=== PATIENT | male | born 1945 | race Caucasian/White ===

== ENCOUNTER 2018-05-24 12:37 | Outpatient (CLI) | payer MEDICARE, BC, SELFPAY ==
[2018-05-24 13:21] LABS: INR 1.9 (1.0-3.5); Prothrombin Time 17.8 sec (9.3-10.8)
== END 2018-05-24 12:57 ==
LOC: PRC 12:41 → LBO 12:47
PROVIDERS: Visit Provider Internal Medicine
DX: I82.409 Acute embolism and thrombosis of unspecified deep veins of unspecified lower extremity (principal); Z79.01 Long term (current) use of anticoagulants
CPT/HCPCS: 36415; 85610

== ENCOUNTER 2018-06-21 11:15 | Outpatient (CLI) | payer MEDICARE, BC, SELFPAY ==
[2018-06-21 11:46] LABS: INR 1.7 (1.0-3.5); Prothrombin Time 16.4 sec (9.3-10.8)
== END 2018-06-21 11:35 ==
PROVIDERS: Visit Provider Internal Medicine
DX: I82.409 Acute embolism and thrombosis of unspecified deep veins of unspecified lower extremity (principal); Z79.01 Long term (current) use of anticoagulants
CPT/HCPCS: 36415; 85610

== ENCOUNTER 2019-03-27 12:38 | Emergency (ER) | payer MEDICARE, BC, SELFPAY ==
[2019-03-27 12:47] VITALS: BP 148/70; PULSE 84; RESP 16; TEMP 36.8; O2SAT 95
--- NOTE | 2019-03-27 12:58 | W.ED.GENAD ---
Discharge Plan Disposition Patient Disposition: HOME Condition: Stable Discharge Details Chief Complaint: Nk/Back Pain Clinical Impression: Cervical strain Primary Care Provider: Annette,Local ED Provider: Bruno Hinojosa Home Meds and New Rx's Prescriptions: New diazepam [Valium] 5 mg tablet 5 mg PO TID-QID PRN (Reason: muscle spasm) Qty: 20 RF: 0 Continued metformin 500 mg Tablet 500 mg PO BID RF: 0 acetaminophen 325 mg Tablet 650 mg PO Q6H PRNRF: 0 atorvastatin 10 mg Tablet 10 mg PO DAILY RF: 0 chlorthalidone 25 mg Tablet 25 mg PO DAILY RF: 0 omeprazole 40 mg Capsule,Delayed Release(Dr/Ec) 40 mg PO BID RF: 0 warfarin 5 mg Tablet 5 mg PO DIRECTED RF: 0 metoprolol succinate 25 mg Tablet Extended Release 24 Hr 25 mg PO DAILY RF: 0 calcitriol 0.25 mcg Capsule 0.25 mcg PO Q OTHER DAY RF: 0 Spiriva with HandiHaler 18 mcg Capsule, W/Inhalation Device 1 cap INHALATION DAILY RF: 0 trospium 20 mg Tablet 20 mg PO BID RF: 0 cholecalciferol (vitamin D3) [Vitamin D3] 1,000 unit Tablet 1,000 unit PO DAILY RF: 0 Discharge Instructions Instructions: Cervical Strain (ED) Additional Instructions: if you develop severe worsening pain, dizziness, chest pain or feel more ill return to the emergency department I placed you on our follow up list to get set up with a primary care provider Medical Decision Making 74 yo male comes in with 5 days of left sided neck pain especially when looking up and to the left. He denies falls or other trauma. No fevers, no headaches. He has pain over the left upper trapezius without redness or warmth. He has no deficits of the cranial nerves and pain is reproducible on exam so doubt dissection and no findings to suggest carpet binder infection or other infections such as rpa, has normal oropharynx and no difficulty/pain swallowing. Given lack of trauma do not feel xrays/ct indicated. Will tx with muscle relaxer and reassess pt feeling much better and has full rom of the neck now. Given good response to muscle relaxants and reassuring exam do not feel any imaging indicated, will d/c home Differential Diagnosis neck spasm, tortcollis HPI General Mode of arrival: ambulatory. Date/Time Provider Initiated Documentation: 03/27/19 12:42. Limitations to Documentation: no limitations. Information obtained by: patient. History of Present Illness 74 year old M presents to the emergency department with the chief complaint of left sided neck pain, described as moderate, Quality is described as aching, and is localized to the neck and left. No relieving factors improve symptom(s), Movement worsens symptoms . Patient notes no other symptoms.. Related Data Home Medications Medication Instructions Recorded Confirmed Spiriva with HandiHaler 1 cap INHALATION DAILY 03/27/19 03/27/19 acetaminophen 650 mg PO Q6H PRN 03/27/19 03/27/19 atorvastatin 10 mg PO DAILY 03/27/19 03/27/19 calcitriol 0.25 mcg PO Q OTHER DAY 03/27/19 03/27/19 chlorthalidone 25 mg PO DAILY 03/27/19 03/27/19 cholecalciferol (vitamin D3) 1,000 unit PO DAILY 03/27/19 03/27/19 [Vitamin D3] diazepam [Valium] 5 mg PO TID-QID PRN #20 tab 03/27/19 metformin 500 mg PO BID 03/27/19 03/27/19 metoprolol succinate 25 mg PO DAILY 03/27/19 03/27/19 omeprazole 40 mg PO BID 03/27/19 03/27/19 trospium 20 mg PO BID 03/27/19 03/27/19 warfarin 5 mg PO DIRECTED 03/27/19 03/27/19 Previous Rx's Medication Instructions Recorded diazepam [Valium] 5 mg PO TID-QID PRN #20 tab 03/27/19 Allergies Allergy/AdvReac Type Severity Reaction Status Date / Time indomethacin [From Indocin] Allergy Unverified 03/27/19 12:51 levofloxacin Allergy Unverified 03/27/19 12:51 metronidazole [From Flagyl] Allergy Unverified 03/27/19 12:51 General Stated Complaint: Nk/Back Pain ORA: 4 Review of Systems Review of Systems All systems reviewed & are unremarkable except as noted in HPI and below Constitutional Denies chills, Denies fever(s) and Denies weakness ENT Denies change in voice Cardiovascular Denies chest pain and Denies dyspnea Respiratory Denies dyspnea Gastrointestinal Denies abdominal pain, Denies nausea and Denies vomiting Neurologic Denies weakness PFSH Social History Do you feel safe at home: Yes Do you feel safe in your relationship?: Yes Exam Const General: no acute distress Orientation: alert HENMT Head: normal to inspection Ears: external ears normal General nose exam: external nose normal Mouth: moist mucous membranes Eyes General: appearance normal, both eyes and all related structures Neck Neck: normal visual inspection Resp Effort & Inspection: normal respiratory effort and able to speak in complete sentences Cardio Rate: regular rate Skin General skin exam: no rashes or lesions noted Neuro General: alert and oriented x3 Extrem General: normal to inspection Psych Mental Status: mental status grossly normal Course Vital Signs Temperature 36.8 C 03/27/19 12:47 Pulse 84 03/27/19 12:47 Respiratory Rate 16 03/27/19 12:47 Blood Pressure 148/70 H 03/27/19 12:47 Pulse Oximetry 95 03/27/19 12:47 Temperature 36.8 C 03/27/19 12:47 Temperature Source Temporal Artery Scan 03/27/19 12:47 Pulse 84 03/27/19 12:47 Respiratory Rate 16 03/27/19 12:47 Respiratory Effort Non-Labored 03/27/19 12:49 Blood Pressure 148/70 H 03/27/19 12:47 Blood Pressure Position Sitting 03/27/19 12:47 Pulse Oximetry 95 03/27/19 12:47 Oxygen Delivery Method Room Air 03/27/19 12:47 Oxygen Flow Rate 0 03/27/19 12:47 Pain Level 10 03/27/19 12:49
--- NOTE | 2019-03-27 13:05 | ED.GENADUL_ITS ---
Discharge Plan Disposition Patient Disposition: HOME Condition: Stable Discharge Details Chief Complaint: Nk/Back Pain Clinical Impression: Cervical strain Primary Care Provider: Annette,Local ED Provider: Bruno Hinojosa Home Meds and New Rx's Prescriptions: New diazepam [Valium] 5 mg tablet 5 mg PO TID-QID PRN (Reason: muscle spasm) Qty: 20 RF: 0 Continued metformin 500 mg Tablet 500 mg PO BID RF: 0 acetaminophen 325 mg Tablet 650 mg PO Q6H PRNRF: 0 atorvastatin 10 mg Tablet 10 mg PO DAILY RF: 0 chlorthalidone 25 mg Tablet 25 mg PO DAILY RF: 0 omeprazole 40 mg Capsule,Delayed Release(Dr/Ec) 40 mg PO BID RF: 0 warfarin 5 mg Tablet 5 mg PO DIRECTED RF: 0 metoprolol succinate 25 mg Tablet Extended Release 24 Hr 25 mg PO DAILY RF: 0 calcitriol 0.25 mcg Capsule 0.25 mcg PO Q OTHER DAY RF: 0 Spiriva with HandiHaler 18 mcg Capsule, W/Inhalation Device 1 cap INHALATION DAILY RF: 0 trospium 20 mg Tablet 20 mg PO BID RF: 0 cholecalciferol (vitamin D3) [Vitamin D3] 1,000 unit Tablet 1,000 unit PO DAILY RF: 0 Discharge Instructions Instructions: Cervical Strain (ED) Additional Instructions: if you develop severe worsening pain, dizziness, chest pain or feel more ill return to the emergency department I placed you on our follow up list to get set up with a primary care provider Medical Decision Making 74 yo male comes in with 5 days of left sided neck pain especially when looking up and to the left. He denies falls or other trauma. No fevers, no headaches. He has pain over the left upper trapezius without redness or warmth. He has no deficits of the cranial nerves and pain is reproducible on exam so doubt dissection and no findings to suggest oncology rep specialist infection or other infections such as rpa, has normal oropharynx and no difficulty/pain swallowing. Given lack of trauma do not feel xrays/ct indicated. Will tx with muscle relaxer and reassess pt feeling much better and has full rom of the neck now. Given good response to muscle relaxants and reassuring exam do not feel any imaging indicated, will d/c home Differential Diagnosis neck spasm, tortcollis HPI General Mode of arrival: ambulatory . Date/Time Provider Initiated Documentation: 03/27/19 12:42 . Limitations to Documentation: no limitations . Information obtained by: patient . History of Present Illness 74 year old M presents to the emergency department with the chief complaint of left sided neck pain, described as moderate, Quality is described as aching, and is localized to the neck and left. No relieving factors improve symptom(s), Movement worsens symptoms . Patient notes no other symptoms.. Related Data Home Medications Medication Instructions Recorded Confirmed Spiriva with HandiHaler 1 cap INHALATION DAILY 03/27/19 03/27/19 acetaminophen 650 mg PO Q6H PRN 03/27/19 03/27/19 atorvastatin 10 mg PO DAILY 03/27/19 03/27/19 calcitriol 0.25 mcg PO Q OTHER DAY 03/27/19 03/27/19 chlorthalidone 25 mg PO DAILY 03/27/19 03/27/19 cholecalciferol (vitamin D3) 1,000 unit PO DAILY 03/27/19 03/27/19 [Vitamin D3] diazepam [Valium] 5 mg PO TID-QID PRN #20 tab 03/27/19 metformin 500 mg PO BID 03/27/19 03/27/19 metoprolol succinate 25 mg PO DAILY 03/27/19 03/27/19 omeprazole 40 mg PO BID 03/27/19 03/27/19 trospium 20 mg PO BID 03/27/19 03/27/19 warfarin 5 mg PO DIRECTED 03/27/19 03/27/19 Previous Rx's Medication Instructions Recorded diazepam [Valium] 5 mg PO TID-QID PRN #20 tab 03/27/19 Allergies Allergy/AdvReac Type Severity Reaction Status Date / Time indomethacin [From Indocin] Allergy Unverified 03/27/19 12:51 levofloxacin Allergy Unverified 03/27/19 12:51 metronidazole [From Flagyl] Allergy Unverified 03/27/19 12:51 General Stated Complaint: Nk/Back Pain ORA: 4 Review of Systems Review of Systems All systems reviewed & are unremarkable except as noted in HPI and below Constitutional Denies chills, Denies fever(s) and Denies weakness ENT Denies change in voice Cardiovascular Denies chest pain and Denies dyspnea Respiratory Denies dyspnea Gastrointestinal Denies abdominal pain, Denies nausea and Denies vomiting Neurologic Denies weakness PFSH Social History Do you feel safe at home: Yes Do you feel safe in your relationship?: Yes Exam Const General: no acute distress Orientation: alert HENMT Head: normal to inspection Ears: external ears normal General nose exam: external nose normal Mouth: moist mucous membranes Eyes General: appearance normal, both eyes and all related structures Neck Neck: normal visual inspection Resp Effort & Inspection: normal respiratory effort and able to speak in complete sentences Cardio Rate: regular rate Skin General skin exam: no rashes or lesions noted Neuro General: alert and oriented x3 Extrem General: normal to inspection Psych Mental Status: mental status grossly normal Course Vital Signs Temperature 36.8 C 03/27/19 12:47 Pulse 84 03/27/19 12:47 Respiratory Rate 16 03/27/19 12:47 Blood Pressure 148/70 H 03/27/19 12:47 Pulse Oximetry 95 03/27/19 12:47 Temperature 36.8 C 03/27/19 12:47 Temperature Source Temporal Artery Scan 03/27/19 12:47 Pulse 84 03/27/19 12:47 Respiratory Rate 16 03/27/19 12:47 Respiratory Effort Non-Labored 03/27/19 12:49 Blood Pressure 148/70 H 03/27/19 12:47 Blood Pressure Position Sitting 03/27/19 12:47 Pulse Oximetry 95 03/27/19 12:47 Oxygen Delivery Method Room Air 03/27/19 12:47 Oxygen Flow Rate 0 03/27/19 12:47 Pain Level 10 03/27/19 12:49
[2019-03-27] MEDS: diazePAM 10 MG/2 ML SYR IM (13:51)
[2019-03-27 14:49] VITALS: BP 137/57; PULSE 68; RESP 16; O2SAT 96
--- NOTE | 2019-03-27 19:03 | NUR.NOTE ---
referral faxed to [facility] for pcp establish.Nursing Note:
== END 2019-03-27 14:35 | disposition home or self-care (01) ==
PROVIDERS: Emergency Provider Emergency Medicine
DX: S16.1XXA Strain of muscle, fascia and tendon at neck level, initial encounter (principal); X50.9XXA Other and unspecified overexertion or strenuous movements or postures, initial encounter
CPT/HCPCS: 36415; 96372; 99284; 85610; J3360

== ENCOUNTER 2019-03-27 14:26 | Outpatient (CLI) | payer MEDICARE, BC, SELFPAY ==
[2019-03-27 15:01] LABS: INR 3.2 (0.9-1.1); Prothrombin Time 31.9 sec (9.3-11.0)
== END 2019-03-27 14:46 ==
PROVIDERS: Nurse Practitioner Women's Health; Visit Provider Internal Medicine
DX: I82.409 Acute embolism and thrombosis of unspecified deep veins of unspecified lower extremity (principal); Z79.01 Long term (current) use of anticoagulants
CPT/HCPCS: 36415; 85610

== ENCOUNTER 2019-04-09 13:20 | Emergency (ER) | payer MEDICARE, BC, SELFPAY ==
[2019-04-09 13:30] VITALS: BP 121/76; PULSE 72; RESP 15; TEMP 36.7; O2SAT 95
--- NOTE | 2019-04-09 14:57 | ED.GENADUL_ITS ---
Discharge Plan Disposition Patient Disposition: HOME Condition: Improving Discharge Details Chief Complaint: Cellulitis Clinical Impression: Infected sebaceous cyst Primary Care Provider: Leonard Nieto ED Provider: Ayad Davey Home Meds and New Rx's Prescriptions: New clindamycin HCl 150 mg capsule 450 mg PO TID 5 Days Qty: 45 RF: 0 Continued metformin 500 mg Tablet 1,000 mg PO DAILY RF: 0 acetaminophen 325 mg Tablet 650 mg PO Q6H PRNRF: 0 atorvastatin 10 mg Tablet 20 mg PO DAILY RF: 0 chlorthalidone 25 mg Tablet 25 mg PO DAILY RF: 0 omeprazole 40 mg Capsule,Delayed Release(Dr/Ec) 40 mg PO BID RF: 0 warfarin 5 mg Tablet 5 mg PO DIRECTED RF: 0 metoprolol succinate 25 mg Tablet Extended Release 24 Hr 25 mg PO DAILY RF: 0 calcitriol 0.25 mcg Capsule 0.25 mcg PO Q OTHER DAY RF: 0 Spiriva with HandiHaler 18 mcg Capsule, W/Inhalation Device 1 cap INHALATION DAILY RF: 0 trospium 20 mg Tablet 20 mg PO BID RF: 0 cholecalciferol (vitamin D3) [Vitamin D3] 1,000 unit Tablet 1,000 unit PO DAILY RF: 0 diazepam [Valium] 5 mg tablet 5 mg PO TID-QID PRN (Reason: muscle spasm) Qty: 20 RF: 0 Januvia 100 mg Tablet 100 mg PO DAILY RF: 0 Basaglar KwikPen U-100 Insulin 100 unit/mL (3 mL) Insulin Pen 20 unit SUBCUT DAILY RF: 0 Discharge Instructions Instructions: Cellulitis (ED), Cyst (ED) Additional Instructions: Please continue to apply warm compresses 3-4 times a day for the next 3 to 4 days. Take antibiotics as prescribed and take a probiotic at least 2 hours after your morning dose. Return to the emergency department for any new or significant worsening of symptoms otherwise keep your appointment with your primary care provider as already scheduled. Referrals: Leonard Nieto [Primary Care Provider] - (As needed for reassessment or if not improving) Discharge Data Discharge Date/Time-TO BE ENTERED AT DEPARTURE: 04/09/19 15:24 Medical Decision Making Patient presenting the emergency department chief complaint of abscess. Patient has what appears to be a sebaceous cyst significant amount of drainage and erythema surrounding. Verbal consent obtained for drainage. Given the sebaceous cyst is already open did not incise but abscess was injected with lidocaine and pressure applied to remove purulent and sebaceous drainage. Patient tolerated procedure appropriately. Patient started on clindamycin due to significant surrounding erythema. Return precautions. After discussion of diagnosis and plan of care patient has no further needs, questions, or concerns and states clear understanding to return to the emergency department for any worsening symptoms. HPI General Mode of arrival: ambulatory . Date/Time Provider Initiated Documentation: 04/09/19 13:31 . Limitations to Documentation: no limitations . Information obtained by: patient, family and RN notes reviewed . History of Present Illness 74 year old M presents to the emergency department with the chief complaint of Abscess, described as moderate, with intensity rated at 5. Quality is described as aching, and is localized to the back. Patient started experiencing this day(s) (10) and it has been constant. No exacerbating factors reported . Patient notes no other symptoms.. Patient did receive the following treatments prior to arrival, none Related Data Home Medications Medication Instructions Recorded Confirmed Spiriva with HandiHaler 1 cap INHALATION DAILY 03/27/19 04/09/19 acetaminophen 650 mg PO Q6H PRN 03/27/19 04/09/19 atorvastatin 20 mg PO DAILY 03/27/19 04/09/19 calcitriol 0.25 mcg PO Q OTHER DAY 03/27/19 04/09/19 chlorthalidone 25 mg PO DAILY 03/27/19 04/09/19 cholecalciferol (vitamin D3) 1,000 unit PO DAILY 03/27/19 04/09/19 [Vitamin D3] diazepam [Valium] 5 mg PO TID-QID PRN #20 tab 03/27/19 04/09/19 metformin 1,000 mg PO DAILY 03/27/19 04/09/19 metoprolol succinate 25 mg PO DAILY 03/27/19 04/09/19 omeprazole 40 mg PO BID 03/27/19 04/09/19 trospium 20 mg PO BID 03/27/19 04/09/19 warfarin 5 mg PO DIRECTED 03/27/19 04/09/19 Basaglar KwikPen U-100 Insulin 20 unit SUBCUT DAILY 04/09/19 04/09/19 Januvia 100 mg PO DAILY 04/09/19 04/09/19 clindamycin HCl 450 mg PO TID 5 Days #45 cap 04/09/19 Previous Rx's Medication Instructions Recorded diazepam [Valium] 5 mg PO TID-QID PRN #20 tab 03/27/19 clindamycin HCl 450 mg PO TID 5 Days #45 cap 04/09/19 Allergies Allergy/AdvReac Type Severity Reaction Status Date / Time indomethacin [From Indocin] Allergy Unverified 04/09/19 13:37 levofloxacin Allergy Unverified 04/09/19 13:37 metronidazole [From Flagyl] Allergy Unverified 04/09/19 13:37 General Stated Complaint: Cellulitis ORA: 4 Review of Systems Constitutional Denies fever(s) Cardiovascular Denies chest pain and Denies dyspnea Respiratory Denies cough and Denies dyspnea PFSH Social History Smoking/Tobacco Use Status: Former Tobacco Use Alcohol Intake: current Alcohol Intake frequency: a few times a month Drug use: Never Do you feel safe at home: Yes Do you feel safe in your relationship?: Yes Exam Const General: cooperative, no acute distress and not ill appearing Orientation: alert, awake and oriented x3 Resp Effort & Inspection: normal respiratory effort, able to speak in complete sentences and no respiratory distress Skin Lesions: lesion noted (Abscess) left back size (3cm), color with an erythematous base, surface indurated, tender and other (With purulent drainage) Course Vital Signs Temperature 36.7 C 04/09/19 13:30 Pulse 72 04/09/19 13:30 Respiratory Rate 15 04/09/19 13:30 Blood Pressure 121/76 04/09/19 13:30 Pulse Oximetry 95 04/09/19 13:30 Temperature 36.7 C 04/09/19 13:30 Temperature Source Temporal Artery Scan 04/09/19 13:30 Pulse 72 04/09/19 13:30 Respiratory Rate 15 04/09/19 13:30 Respiratory Effort Non-Labored 04/09/19 13:36 Blood Pressure 121/76 04/09/19 13:30 Blood Pressure Position Sitting 04/09/19 13:30 Pulse Oximetry 95 04/09/19 13:30 Oxygen Delivery Method Room Air 04/09/19 13:30 Oxygen Flow Rate 0 04/09/19 13:30 Pain Level 8 04/09/19 13:30 Procedures Abscess I/D Site: Back Side (if applicable): Left Sedation/analgesia: None Local Anesthetic: Lidocaine 1% Amount of anesthesia used (mL): 3 Technique: Other (already open ) Irrigation: No Packing used?: None Complications: Pain and Bleeding
== END 2019-04-09 15:24 | disposition home or self-care (01) ==
PROVIDERS: Emergency Provider Nurse Practitioner Family; PCP Internal Medicine
DX: L72.3 Sebaceous cyst (principal)
CPT/HCPCS: 99283

== ENCOUNTER 2019-05-15 13:43 | Outpatient (CLI) | payer MEDICARE, BC, SELFPAY ==
[2019-05-15 14:25] LABS: INR 3.6 (0.9-1.1); Prothrombin Time 36.4 sec (9.3-11.0)
== END 2019-05-15 14:03 ==
PROVIDERS: PCP Nurse Practitioner Family; Visit Provider Internal Medicine
DX: I82.409 Acute embolism and thrombosis of unspecified deep veins of unspecified lower extremity (principal); Z79.01 Long term (current) use of anticoagulants
CPT/HCPCS: 36415; 85610

== ENCOUNTER 2019-05-30 13:21 | Outpatient (CLI) | payer MEDICARE, BC, SELFPAY ==
[2019-05-30 13:54] LABS: INR 2.8 (0.9-1.1); Prothrombin Time 27.8 sec (9.3-11.0)
== END 2019-05-30 13:41 ==
PROVIDERS: PCP Nurse Practitioner Family; Visit Provider Internal Medicine
DX: I82.409 Acute embolism and thrombosis of unspecified deep veins of unspecified lower extremity (principal); Z79.01 Long term (current) use of anticoagulants
CPT/HCPCS: 36415; 85610

== ENCOUNTER 2020-05-07 01:32 | Outpatient (CLI) | payer MEDICARE, BC, SELFPAY ==
[2020-05-07 10:10] LABS: INR 1.3 (0.9-1.1); Prothrombin Time 12.9 sec (9.3-11.0)
== END 2020-05-07 01:52 ==
PROVIDERS: PCP Nurse Practitioner Family; Visit Provider Internal Medicine
DX: I82.409 Acute embolism and thrombosis of unspecified deep veins of unspecified lower extremity (principal); Z79.01 Long term (current) use of anticoagulants
CPT/HCPCS: 36415; 85610

== ENCOUNTER 2020-05-22 03:57 | Outpatient (CLI) | payer MEDICARE, BC, SELFPAY ==
[2020-05-22 12:58] LABS: INR 2.6 (0.9-1.1); Prothrombin Time 25.6 sec (9.3-11.0)
== END 2020-05-22 04:17 ==
PROVIDERS: PCP Nurse Practitioner Family; Visit Provider Internal Medicine
DX: I82.409 Acute embolism and thrombosis of unspecified deep veins of unspecified lower extremity (principal); Z79.01 Long term (current) use of anticoagulants
CPT/HCPCS: 36415; 85610

== ENCOUNTER 2020-06-08 02:20 | Outpatient (CLI) | payer MEDICARE, BC, SELFPAY ==
[2020-06-08 12:48] LABS: INR 1.7 (0.9-1.1); Prothrombin Time 16.8 sec (9.3-11.0)
== END 2020-06-08 02:40 ==
PROVIDERS: PCP Nurse Practitioner Family; Visit Provider Internal Medicine
DX: Z79.01 Long term (current) use of anticoagulants (principal); I82.409 Acute embolism and thrombosis of unspecified deep veins of unspecified lower extremity
CPT/HCPCS: 36415; 85610

== ENCOUNTER 2021-02-25 02:53 | Outpatient (CLI) | payer MEDICARE, BC, SELFPAY ==
[2021-02-25 12:57] LABS: INR 1.8 (0.9-1.1); Prothrombin Time 17.8 sec (9.3-11.0)
== END 2021-02-25 02:54 | disposition home or self-care (01) ==
LOC: LBO 02:54
PROVIDERS: PCP Nurse Practitioner Family; Visit Provider Internal Medicine
DX: I82.409 Acute embolism and thrombosis of unspecified deep veins of unspecified lower extremity (principal); Z79.01 Long term (current) use of anticoagulants
CPT/HCPCS: 36415; 85610

== ENCOUNTER 2021-03-02 06:04 | Inpatient (IN) | payer MEDICARE, BC, SELFPAY ==
[2021-03-02] VITALS (111 sets, daily range): BP systolic 93–191; BP diastolic 51–174; PULSE 86–123; RESP 12–35; TEMP 35.9–36.3; O2SAT 87–97
--- NOTE | 2021-03-02 06:30 | DI.CT_ITS ---
Exam(s) CT ABDOMEN PELVIS W EXAM: CT ABDOMEN PELVIS W CLINICAL HISTORY: abdomen pain and n/v TECHNIQUE: Imaging Protocol: Axial computed tomography images with coronal and sagittal reformatted images were created and reviewed CONTRAST MATERIAL: Intravenous: Omnipaque 350 Contrast volume:100 mL Oral: No COMPARISON: No exams were available for comparison FINDINGS: ABDOMEN: Lung Bases: There is a fluid-filled mildly distended distal esophagus. Scarring or atelectasis is se en in the left lower lobe. Liver: There is diffuse decreased attenuation of the liver suggesting fatty infiltration. Multiple r ound hypodense lesions are seen within the liver. They appear to be fluid attenuation and likely ref lect cysts. The largest measures 3.8 cm. Portal and superior Mesenteric: Unremarkable. Gallbladder and Biliary Tract: Mildly distended. No biliary ductal dilatation. Pancreas: Normal density, no abnormal calcifications or inflammatory process. Pancreatic atrophy. Spleen: Status post splenectomy. Adrenals: No masses seen. Kidneys: Status post left nephrectomy. Nonobstructing 3 mm stone in the lower pole of the right kidn ey. Simple right renal cysts. No follow-up is recommended. Abdominal Aorta: Abdominal portion non-dilated. Atherosclerosis. Bowel: There is marked distention of the stomach and moderate distention of the proximal small bowel. The mid and distal small bowel is of normal caliber. The transition appears to lie in the left abd omen and is located near surgical clips and postsurgical changes. This may represent small-bowel obs truction related to adhesions. There appears to be a subtotal colectomy with an anastomosis in the l eft abdomen. Peritoneal Cavity: No ascites. There is mild infiltration in the mesentery. No free air. Lymph Nodes: There is a 2.4 x 1.2 cm left iliac lymph node. Bones: Within normal limits for the patient's age. There is a right convex scoliosis of the thoracol umbar spine. Soft Tissues: Unremarkable. PELVIS: Bladder: Symmetric distention. Reproductive Organs: There is an enlarged prostate gland. It does impinge on the base of the urinary bladder. Lymph Nodes: Within normal limits. Bones: Within normal limits for the patient's age. IMPRESSION: 1. Findings suggestive of a small bowel obstruction with a transition in the left abdomen near postsu rgical changes. There is distension of the distal esophagus stomach and proximal small bowel. No pn eumoperitoneum. 2. Status post left nephrectomy. Findings suggestive of a near complete colectomy with anastomosis i n the left abdomen. 3. Hypodense hepatic lesions and right renal lesions likely reflecting cysts. No further follow-up i s recommended. 4. Results of this exam have been verbally communicated with provider. RADIATION DOSE DELIVERED: 1,465.5mGy.cm Total DLP DATA REPOSITORY: All CT scans at this facility are submitted to the National Radiology Data Registry (NRDR) Dose Index Registry (DIR) with the [employer] ([employer]). RADIATION OPTIMIZATION: All CT scans at this facility use at least one of these dose optimization te chniques: automated exposure control; mA and/or kV adjustment per patient size (includes targeted exa ms where dose is matched to clinical indication); or iterative reconstruction.
--- NOTE | 2021-03-02 06:43 | ED.GENADUL_ITS ---
Discharge Plan Disposition Patient Disposition: [facility] INPATIENT Condition: Good Discharge Details Clinical Impression: Small bowel obstruction, Hematemesis, Hypomagnesemia Admit Date/Time: 03/02/21 08:39 Admit Provider: Alcon Blanco Attending Provider: Alcon Blanco Primary Care Provider: Lynnette Crabtree ED Provider: Pierce Vela Discharge Data Discharge Date/Time-TO BE ENTERED AT DEPARTURE: 03/02/21 11:18 Medical Decision Making <Bruno Hinojosa MD - Last Filed: 03/02/21 06:48> 76 yo male with hx of prior PE on coumadin, hld, prior lung cancer and kidney cancer s/p nephrectomy, who comes in with abdomen pain and n/v since yesterday and states it feels similar to prior small bowel obstructions he has had. He lives in [place] 6 months out of the year and is up here the other 6 months, and states his surgeries were years ago in [place] and his PE was associated with the surgery and cancer. HE denies chest pain or pressure though he states he feels acid in his throat similar to prior acid reflux he gets with bowel obstructions. He does have a distended abdomen with tenderness throughout, suspect sbo, will obtain lab work and ct abd/pelvis Patient signed out to oncoming provider pending ct results Differential Diagnosis Differential Diagnosis: small bowel obstruction, ileus, appendicitis Lab Data Lab results reviewed: Yes I reviewed the patient's lab results. <Pierce Vela MD - Last Filed: 03/12/21 23:28> Care signed out by Dr. Hinojosa with plan to follow-up on CT the abdomen pelvis and reassess patient for disposition. Labs reviewed: INR 2.5. Leukocytosis noted. hypomagnesemia noted. Dr. Hinojosa had ordered magnesium replacement which will be infused. CT the abdomen pelvis was interpreted by radiology: IMPRESSION: 1. Fluid-filled and dilated stomach and proximal small bowel with a possible transition point the level of the postsurgical changes in the left mid abdomen. A component of gastric and bowel obstruction should be considered. No free air. 2. Extensive postsurgical changes. 3. Likely renal cysts not requiring follow-up. 4. Multiple hepatic lesions possibly cysts. No further follow-up is recommended. Patient was given a dose of Dilaudid 1 mg IV for pain Patient reassessed and continues to vomit. Vomitus appeared dark. no gross blood. Gastric call performed and positive for blood. Protonix IV bolus had been administered. I will start Protonix infusion. Type and screen was checked. Hemoglobin currently normal. I called and spoke with on-call surgeon, Dr. Carolina, I discussed ED presentation course including diagnostics and requested consultation. She will see the patient SKIP and recommended he be admitted to the hospitalist service. She recommends NG tube placement. NG tube placed. I called and spoke with on-call hospitalist Dr. Blanco, I discussed ED presentation course including diagnostics available, and he will admit the patient. Of note, chest x-ray pending at time of admission. Patient to be admitted to the critical care unit. HPI <Bruno Hinojosa MD - Last Filed: 03/02/21 06:48> General Mode of arrival: ambulatory . Date/Time Provider Initiated Documentation: 03/02/21 06:18 . Limitations to Documentation: no limitations . Information obtained by: patient . History of Present Illness 76 year old M presents to the emergency department with the chief complaint of abdomen pain, described as moderate, and it has been constant. No relieving factors improve symptom(s), No exacerbating factors reported . Patient notes nausea/vomiting. Patient did receive the following treatments prior to arrival, none Related Data Home Medications Medication Instructions Recorded Confirmed Spiriva with HandiHaler 2 cap INHALATION DAILY 03/27/19 03/02/21 acetaminophen 650 mg PO Q6H PRN 03/27/19 03/02/21 atorvastatin 10 mg PO HS 03/27/19 03/02/21 calcitriol 0.25 mcg PO Q OTHER DAY 03/27/19 03/02/21 cholecalciferol (vitamin D3) 1,000 unit PO DAILY 03/27/19 03/02/21 [Vitamin D3] diazepam [Valium] 5 mg PO TID-QID PRN #20 tab 03/27/19 03/02/21 metformin 1,000 mg PO HS 03/27/19 03/02/21 metoprolol succinate 25 mg PO DAILY 03/27/19 03/02/21 omeprazole 40 mg PO TID 03/27/19 03/02/21 trospium 20 mg PO DAILY 03/27/19 03/02/21 warfarin 5 mg PO DIRECTED 03/27/19 03/02/21 Basaglar KwikPen U-100 Insulin 20 unit SUBCUT HS 04/09/19 03/02/21 Januvia 100 mg PO DAILY 04/09/19 03/02/21 amoxicillin-pot clavulanate 1 tab PO BID #10 tab 03/05/21 [Augmentin] polyethylene glycol 3350 [Miralax] 17 g PO DAILY #238 g 03/05/21 Previous Rx's Medication Instructions Recorded diazepam [Valium] 5 mg PO TID-QID PRN #20 tab 03/27/19 amoxicillin-pot clavulanate 1 tab PO BID #10 tab 03/05/21 [Augmentin] polyethylene glycol 3350 [Miralax] 17 g PO DAILY #238 g 03/05/21 Allergies Allergy/AdvReac Type Severity Reaction Status Date / Time indomethacin [From Indocin] Allergy Unverified 03/02/21 06:28 levofloxacin Allergy Unverified 03/02/21 06:28 metronidazole [From Flagyl] Allergy Unverified 03/02/21 06:28 General Stated Complaint: Abd Prob ORA: 2 Review of Systems <Bruno Hinojosa MD - Last Filed: 03/02/21 06:48> All systems reviewed & are unremarkable except as noted in HPI and below Constitutional Constitutional: Denies chills, Denies fever(s) and Denies weakness Cardiovascular Cardiovascular: Denies chest pain and Denies dyspnea Respiratory Respiratory: Denies cough and Denies dyspnea Musculoskeletal Musculoskeletal: Denies joint swelling Neurologic Neurologic: Denies weakness Psychiatric Psychiatric: Denies depression PFS <Bruno Hinojosa MD - Last Filed: 03/02/21 06:48> Social History Smoking/Tobacco Use Status: Former Tobacco Use Smoking risk assessment performed?: Yes Alcohol Intake: current Alcohol Intake frequency: a few times a month Drug use: Never Do you feel safe at home: Yes Do you feel safe in your relationship?: Yes Exam <Bruno Hinojosa MD - Last Filed: 03/02/21 06:48> Const General: other (in pain) Orientation: alert [facility] Head: normal to inspection Ears: external ears normal General nose exam: external nose normal Mouth: moist mucous membranes Eyes General: appearance normal, both eyes and all related structures Neck Neck: normal visual inspection Resp Effort & Inspection: normal respiratory effort and able to speak in complete sentences Cardio Rate: regular rate GI Palpation: tender Skin General skin exam: no rashes or lesions noted Neuro General: patient alert and patient oriented x3 Extrem General: normal to inspection Psych Mental Status: mental status grossly normal Course <Bruno Hinojosa MD - Last Filed: 03/02/21 06:48> Vital Signs Vital signs: Vital Signs Temperature 36.2 C L 03/02/21 06:24 Pulse 91 H 03/02/21 06:24 Respiratory Rate 18 03/02/21 06:24 Blood Pressure 185/84 H 03/02/21 06:24 Pulse Oximetry 96 03/02/21 06:24 Temperature 36.2 C L 03/02/21 06:24 Temperature Source Skin 03/02/21 06:24 Pulse 91 H 03/02/21 06:24 Respiratory Rate 18 03/02/21 06:24 Blood Pressure 185/84 H 03/02/21 06:24 Blood Pressure Position Sitting 03/02/21 06:24 Pulse Oximetry 96 03/02/21 06:24 Oxygen Delivery Method Room Air 03/02/21 06:24 Oxygen Flow Rate 0 03/02/21 06:24 Pain Level 10 03/02/21 06:24 <Pierce Vela MD - Last Filed: 03/12/21 23:28> Critical Care Time Critical Care Time: Yes Total Critical Care Time: 50 Attestation: I spent greater than 50 minutes addressing this patient's immediate life threats. Please see MDM section of note. This time was spent engaged in work directly related to the patient's care, exclusive of separate procedures, and failure to initiate these interventions would have likely resulted in clinically significant or life threatening deterioration in the patient's condition. Sign Out <Bruno Hinojosa MD - Last Filed: 03/02/21 06:48> Sign Out Data: Sign Out Comment: see note, abdomen pain and n/v since yesterday and feels like prior small bowel obstruction, pending ct Last updated by Bruno Hinojosa MD at 03/02/21 06:58
[2021-03-02] MEDS: Ondansetron 4 MG/2 ML VIAL IVP (06:51)
[2021-03-02] MEDS: Normal Saline 1,000 ML 1000 ML IV (06:53)
[2021-03-02 06:54] LABS: HCT 42.2 % (40.0-50.0); HGB 14.1 g/dL (13.5-17.5); MCH 29.1 pg (27.0-33.0); MCHC 33.4 % (32.0-36.0); MCV 87.2 fL (80-95); MPV 10.7 fL (8.0-11.0); Nucleated RBC 0 %; Platelet Count 417 10^3/uL (130-400); RBC 4.84 10^6/uL (4.36-5.78); RDW 15.5 % (11.8-14.1); RDW-SD 49.5 fL; WBC 17.86 10^3/uL (4.4-10.8)
[2021-03-02] MEDS: Pantoprazole 40 MG VIAL IVP ×2 (06:55→20:03)
[2021-03-02] MEDS: HYDROmorphone 2 MG/ML VIAL 1 MG IVP ×3 (06:58→12:25)
[2021-03-02 07:04] LABS: ALT 25 U/L (16-63); AST 15 U/L (15-37); Albumin 3.5 g/dL (3.4-5.0); Alkaline Phosphatase 119 U/L (46-116); Anion Gap 11.5 mmol/L (3-11); BUN 17 mg/dL (7-18); Bilirubin, Total 0.9 mg/dL (0.2-1.0); CO2 24.5 mmol/L (21.0-32.0); CREATININE 1.1 mg/dL (0.70-1.30); Calcium 10.5 mg/dL (8.5-10.1); Chloride 103 mmol/L (98-107); Glucose 217 mg/dL (74-106); Lipase 399 U/L (73-393); Magnesium 1.3 mg/dL (1.8-2.4); Potassium 4.6 mmol/L (3.5-5.1); Sodium 139 mmol/L (136-145); Total Protein 8.1 g/dL (6.4-8.2)
[2021-03-02 07:12] LABS: INR 2.5 (0.9-1.1); PTT Activated 32.7 sec (21.0-27.5); Prothrombin Time 24.8 sec (9.3-11.0)
[2021-03-02 07:38] LABS: Absolute Lymphocyte Count 1.07 10^3/uL (1.2-3.4); Absolute Neutrophil Count 15.72 10^3/uL (1.2-6.7)
[2021-03-02 07:39] LABS: Absolute Monocyte Count 1.07 10^3/uL (0.1-0.8); Diff Comment Manual Differential; RBC Morphology Normal
[2021-03-02] MEDS: Omnipaque 350 MG/ML 100 ML BTL IJ (07:56)
[2021-03-02] MEDS: Normal Saline - Diluent 50 ML VIAL IV (07:57)
--- NOTE | 2021-03-02 08:02 | DI.RAD_ITS ---
Exam(s) XR CHEST 2V PA LATERAL EXAM: XR CHEST 2V PA LATERAL CLINICAL HISTORY: ?aspiration TECHNIQUE: 2D digital imaging was performed. COMPARISON: No exams were available for comparison FINDINGS: MEDIASTINUM: Normal. HEART: Normal. PULMONARY VASCULATURE: Normal. LUNGS: Clear. Linear scarring or atelectasis in the left base. PLEURAL SPACE: No pleural effusion or pneumothorax. BONE:Within normal limits for the patient's age. OTHER FINDINGS:Normal. IMPRESSION: No acute pulmonary findings. DATA REPOSITORY: RADIATION DOSE DELIVERED:
[2021-03-02] MEDS: Normal Saline Flush 10 ML SYR IVP ×3 (08:14→20:03)
[2021-03-02] MEDS: MAGNESIUM SULFATE 2 GM/50 ML BAG IVPB ×2 (08:14→17:13)
[2021-03-02] MEDS: Lidocaine 2% Viscous 15 ML CUP ×2 (08:14→08:53)
--- NOTE | 2021-03-02 08:19 | DI.VRAD_ITS ---
PROCEDURE INFORMATION: Exam: CT Abdomen And Pelvis With Contrast Exam date and time: 03/02/2021 6:37 AM Age: 76 years old Clinical indication: Nausea and vomiting; Abdominal pain; Generalized; Prior surgery; Surgery date: 6+ months; Surgery type: Left nephrectomy TECHNIQUE: Imaging protocol: Computed tomography of the abdomen and pelvis with contrast. Radiation optimization: All CT scans at this facility use at least one of these dose optimization techniques: automated exposure control; mA and/or kV adjustment per patient size (includes targeted exams where dose is matched to clinical indication); or iterative reconstruction. Contrast material: OMNIPAQUE 350; Contrast volume: 100 ml; Contrast route: INTRAVENOUS (IV); COMPARISON: No relevant prior studies available. FINDINGS: Limitations: None. Lungs: Likely scarring atelectatic changes in the left lung base. Heart: The heart is not enlarged. Mediastinal space: Fluid-filled distal esophagus which should be followed with direct visualization or barium study. It could be due to the distended stomach. Liver: Multiple low-density lesions in the liver may be cysts, the largest at 4 cm. Gallbladder and bile ducts: Mildly distended gallbladder without definite stones or choledocholithiasis. Pancreas: Pancreatic atrophy without pancreatic mass. Spleen: The spleen is absent with tiny splenules. Adrenal glands: The right adrenal is within normal limits. The left adrenal is not seen. Kidneys and ureters: The left kidney is not seen. No renal or ureteral stones. Low-density lesions in the right kidney suggest cysts measuring up to 5.1 cm. Stomach and bowel: The stomach, duodenum, and proximal jejunum are fluid-filled and dilated with a possible transition point at the level of the postsurgical changes along the left side of the mid abdomen. A component of obstruction should be considered. Appendix: No evidence of appendicitis. Intraperitoneal space: No free air or free fluid. Retroperitoneal space: Retroperitoneal soft tissue thickening and postsurgical changes posteriorly on the left. Vasculature: Atherosclerotic changes of the coronary arteries. Moderate atherosclerotic changes of the aorta extending into the mesenteric, renal, and iliac arteries. Lymph nodes: Unremarkable. No enlarged lymph nodes. Urinary bladder: Unremarkable as visualized. Reproductive: The prostate is enlarged. Bones/joints: Degenerative changes and scoliosis are appreciated without definite acute fracture. No lytic or blastic disease. Postsurgical changes involving the lower ribs on the left. Soft tissues: The inguinal rings are open with fat bilaterally. Metallic densities along both inguinal canals. IMPRESSION: 1. Fluid-filled and dilated stomach and proximal small bowel with a possible transition point the level of the postsurgical changes in the left mid abdomen. A component of gastric and bowel obstruction should be considered. No free air. 2. Extensive postsurgical changes. 3. Likely renal cysts not requiring follow-up. 4. Multiple hepatic lesions possibly cysts. No further follow-up is recommended. Dictated and Authenticated by: Alcon Mckeon MD. Ordering:LILIAN Carr MD
[2021-03-02] MEDS: PANTOPRAZOLE 80 MG in Normal Saline 100 ML 10 MG IV (08:49)
[2021-03-02 09:03] LABS: Source Nasal/Nares
--- NOTE | 2021-03-02 10:36 | INITIAL_ITS ---
- If Service Date Differs Date of service: 03/02/21 Time of Service: 10:36 Care Management Initial Assess REASON FOR HOSPITALIZATION:: SBO, hematemesis, and hypomagnesemia. PAST MEDICAL HISTORY/PAST SURGICAL HISTORY:: No medical or surgical history noted in chart. PREVIOUS FUNCTIONAL STATUS/SOCIAL/FAMILY SUPPORTS:: Ronald is a 76 year old man who resides 6 months of the year in [place], [place], and spends the remainder of the year in [place], [place], with his Veda. 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 He now occupies his time with fishing on his [employer] boat, walking on the beach, and traveling and exploring the country. His shares that they are a blended family; Ronald has 4 adult children, Veda has 3, and they have 9 grandchildren. Veda is a source of support for Ronald. CURRENT FUNCTIONAL STATUS:: Ronald is laying in bed when CM comes to meet with him. His , Veda is present in the room and she provides much of the information for this assessment as Ronald is tired and not feeling well. She reports that Ronald is independent at baseline. CM will continue to follow. ADVANCE DIRECTIVES:: Veda reports Ronald has a health proxy, but states the document has been misplaced. She accepts an Advance Directive form, which will be completed at their convenience. Has patient been provided with info about the portal/API?: Yes Did the patient sign up for the portal?: Yes CODE STATUS:: Full Code INSURANCE COVERAGE / FINANCIAL ISSUES:: Federal BCBS and Medicare. CURRENT HOME/COMMUNITY SERVICES/EQUIPMENT:: Ronald is independent at baseline and has no in-home or community services. He ambulates with a cane when walking long distances. PRIMARY CARE PHYSICIAN:: Lynnette Crabtree NP. POTENTIAL DISCHARGE NEEDS:: Follow up with PCP, surgeon, and discharge plan of care. PATIENT/FAMILY EDUCATION NEEDS:: Discharge instructions, limitations, and follow up plan of care, including Ask Me Three and self management. ANTICIPATED BARRIERS TO DISCHARGE:: No anticipated barriers at this time. TRANSPORTATION:: Via private vehicle with spouse. PLAN:: Anticipate Ronald will be discharged home with no services when medically cleared by provider. He will follow up with his PCP, surgeon, and discharge plan of care as directed. His , Veda, will drive him home via private vehicle when ready. CM will continue to support patient, family, and discharge planning needs.
[2021-03-02] MEDS: Metoprolol 5 MG/5 ML VIAL IVP ×2 (12:25→17:32)
--- NOTE | 2021-03-02 13:37 | NUR.NOTE ---
This medical writer did offer the PT AM care and oral care even though he got here in the late morning. PT said he washed up before coming here this morning. RN aware. Nursing Note:
[2021-03-02 14:12] LABS: Abs Immature Grans 0.08 10^3/uL (0.0-0.06); Absolute Basophil Count 0.07 10^3/uL (0.0-0.2); Absolute Lymphocyte Count 1.03 10^3/uL (1.2-3.4); Absolute Monocyte Count 1.05 10^3/uL (0.1-0.8); Absolute Neutrophil Count 16.46 10^3/uL (1.2-6.7); Basophils % 0.4; HCT 42.3 % (40.0-50.0); HGB 13.8 g/dL (13.5-17.5); Immature Grans % 0.4; Lymphocytes % 5.5; MCH 28.8 pg (27.0-33.0); MCHC 32.6 % (32.0-36.0); MCV 88.1 fL (80-95); MPV 10.6 fL (8.0-11.0); Monocytes % 5.6; Neutrophils % 88.1; Nucleated RBC 0 %; Platelet Count 384 10^3/uL (130-400); RDW 15.6 % (11.8-14.1); RDW-SD 50.7 fL; WBC 18.68 10^3/uL (4.4-10.8)
--- NOTE | 2021-03-02 14:48 | W.PM.HP.N ---
Date of service: 03/02/21 Time of Service: 10:17 Assessment and Plan Assessment and plan (1) Small bowel obstruction: Status: Acute Assessment and plan: Bowel rest. IV fluids. IV pain meds and antiemetics. Surgery (2) Hematemesis: Status: Acute Assessment and plan: heme + gastric output. Hgb stable; monitor. PPI (3) Hypomagnesemia: Status: Acute Assessment and plan: IV replacement. Monitor. History of Present Illness History of Present Illness Chief Complaint: Abdominal pain Narrative: This is a 76 yo male with a PMH of liposarcoma with L nephrectomy, Lung CA with resection of mass, HLD, DM2, COPD, pulmonary embolism on warfarin. He presented with abd mclain, N/V since the day prior to admission. He endorses having had 6 previous small bowel obstructions. His BP was 185/84 with a pulse in the low 100's. Afebrile. WBC count 17. Hgb 13.8. INR 2.5. CT abd/pelvis showed: Fluid-filled and dilated stomach and proximal small bowel with a possible transition point the level of the postsurgical changes in the left mid abdomen. A component of gastric and bowel obstruction should be considered. No free air. NG placed and gastric return was heme positive. Surgery consulted. Review of Systems Constitutional Constitutional: Reports as per HPI, Denies chills and Denies fever(s) ENT Ears, Nose, Mouth, and Throat: Denies dizziness Cardiovascular Cardiovascular: Denies chest pain, Denies lightheadedness and Denies dyspnea Respiratory Respiratory: Denies cough, Denies hemoptysis and Denies dyspnea Gastrointestinal Gastrointestinal: Reports abdominal pain, Denies melena, Denies constipation and Denies diarrhea Neurologic Neurologic: Denies confusion and Denies dizziness Psychiatric Psychiatric: Denies confusion [facility] Social History Smoking/Tobacco Use Status: Former Tobacco Use Smoking risk assessment performed?: Yes Alcohol Intake: current Alcohol Intake frequency: a few times a month Drug use: Never Do you feel safe at home: Yes Do you feel safe in your relationship?: Yes Meds Allergies and Home Medications Allergies Allergy/AdvReac Type Severity Reaction Status Date / Time indomethacin [From Indocin] Allergy Unverified 03/02/21 06:28 levofloxacin Allergy Unverified 03/02/21 06:28 metronidazole [From Flagyl] Allergy Unverified 03/02/21 06:28 Home Medications Medication Instructions Recorded Confirmed Type Spiriva with HandiHaler 2 cap INHALATION DAILY 03/27/19 03/02/21 History acetaminophen 650 mg PO Q6H PRN 03/27/19 03/02/21 History atorvastatin 10 mg PO HS 03/27/19 03/02/21 History calcitriol 0.25 mcg PO Q OTHER DAY 03/27/19 03/02/21 History cholecalciferol (vitamin D3) 1,000 unit PO DAILY 03/27/19 03/02/21 History [Vitamin D3] diazepam [Valium] 5 mg PO TID-QID PRN #20 tab 03/27/19 03/02/21 Rx metformin 1,000 mg PO HS 03/27/19 03/02/21 History metoprolol succinate 25 mg PO DAILY 03/27/19 03/02/21 History omeprazole 40 mg PO TID 03/27/19 03/02/21 History trospium 20 mg PO DAILY 03/27/19 03/02/21 History warfarin 5 mg PO DIRECTED 03/27/19 03/02/21 History Basaglar KwikPen U-100 Insulin 20 unit SUBCUT HS 04/09/19 03/02/21 History Januvia 100 mg PO DAILY 04/09/19 03/02/21 History Exam Const General: cooperative and no acute distress Nutritional Appearance: obese Orientation: alert and oriented x3 Eyes Sclera: sclerae normal Pupils: PERRL Resp Effort & Inspection: normal respiratory effort Auscultation: clear to auscultation bilaterally Cardio Rate: regular rate Rhythm: regular rhythm Heart Sounds: S1 normal and S2 normal GI Palpation: soft and tender (diffuse) Auscultation: absent bowel sounds Skin General skin exam: no rashes or lesions noted Extrem General: no pedal edema and no calf tenderness Results Labs Result diagrams: 03/02/21 14:05 03/02/21 06:35 Labs: Laboratory Results - last 24 hr 03/02/21 03/02/21 03/02/21 06:35 06:35 06:35 WBC 17.86 H RBC 4.84 Hgb 14.1 Hct 42.2 MCV 87.2 MCH 29.1 MCHC 33.4 RDW 15.5 H Plt Count 417 H MPV 10.7 Immature Gran % 0.0 Neutrophils % 88.0 Lymphocytes % 6.0 Monocytes % 6.0 Eosinophils % 0.0 Basophils % 0.0 Nucleated RBC % 0 Absolute Neutrophils 15.72 H Absolute Lymphocytes 1.07 L Absolute Monocytes 1.07 H Absolute Eosinophils 0.00 Absolute Basophils 0.00 RBC Morphology Normal PT 24.8 H D INR 2.5 H D APTT 32.7 H Sodium 139 Potassium 4.6 Chloride 103 Carbon Dioxide 24.5 Anion Gap 11.5 H BUN 17 Creatinine 1.1 Estimated GFR/1.73 m2 >= 60.00 Glucose 217 H Calcium 10.5 H Magnesium 1.3 L Total Bilirubin 0.9 AST 15 ALT 25 Alkaline Phosphatase 119 H Total Protein 8.1 Albumin 3.5 Lipase 399 H COVID-19 Source Patient ABO/Rh Antibody Screen 03/02/21 03/02/21 03/02/21 08:08 08:41 14:05 WBC 18.68 H RBC 4.80 Hgb 13.8 Hct 42.3 MCV 88.1 MCH 28.8 MCHC 32.6 RDW 15.6 H Plt Count 384 MPV 10.6 Immature Gran % 0.4 Neutrophils % 88.1 Lymphocytes % 5.5 Monocytes % 5.6 Eosinophils % 0.0 Basophils % 0.4 Nucleated RBC % 0 Absolute Neutrophils 16.46 H Absolute Lymphocytes 1.03 L Absolute Monocytes 1.05 H Absolute Eosinophils 0.00 Absolute Basophils 0.07 RBC Morphology PT INR APTT Sodium Potassium Chloride Carbon Dioxide Anion Gap BUN Creatinine Estimated GFR/1.73 m2 Glucose Calcium Magnesium Total Bilirubin AST ALT Alkaline Phosphatase Total Protein Albumin Lipase COVID-19 Source Nasal/nares Patient ABO/Rh O Positive Antibody Screen Negative Last Vital Signs Temp 35.9 C L 03/02/21 11:30 Pulse 105 H 03/02/21 11:30 Resp 20 03/02/21 11:50 BP 165/92 H 03/02/21 11:30 Pulse Ox 91 L 03/02/21 11:50 COVID-19 Screening Have you, or household traveled for leisure in last 14 days?: No Had IN PERSON contact w/suspected or confirmed C-19 person: No
[2021-03-02] MEDS: Normal Saline 1,000 ML 100 ML IV (17:13)
[2021-03-02] MEDS: Lidocaine 2% Jelly 6 ML SYR (17:31)
--- NOTE | 2021-03-02 17:40 | W.SURGCON ---
Date of service: 03/02/21 Time of Service: 17:40 Assessment and Plan Assessment and plan (1) Leukocytosis (leucocytosis): Status: Acute (2) Pneumonia: Status: Acute (3) Small bowel obstruction: Status: Acute Assessment and plan: History of multiple prior bowel resections. He has had multiple major abdominal surgeries. He follows up [facility] in [place] for regular checks. There is no signs of any hernias There is no sign of any cancer recurrence of the CT today He does not have any peritonitis or free air. -We will continue with conservative medical management. With NG tube decompression and, fluid resuscitation, pain management -He is on of PPI drip and we will continue to monitor his hemoglobin closely. I do not feel that we need to actively reverse his Coumadin at this point. We will continue to follow the trends. But I do not want to start him on any further anticoagulation at this point -Possible aspiration rivera continue with aggressive pulmonary toilet. Zosyn was added empirically as he does have a high white count. Medical management per the hospitalist 60 minutes was spent with the patient in consultation. Most of the history was taken from the patient's . I did personally review his CT scans. I did discuss the case with Dr. Tigre Travis. This document was created using voice activated software and may contain errors (4) Hematemesis: Status: Acute History of Present Illness Narrative: Patient presented to the ED today with complaints of nausea and vomiting and abdominal pain. 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 He has had bowel obstructions off and on since that period of time. 3 weeks ago he had some abdominal pain/bloating and lack of bowel movements. Whenever he has these episodes he generally goes on a clear liquid diet and uses laxatives. He has had 2 or 3 of these episodes in the last 2 weeks. This is been going on for the last 36 hours now he is not able to keep liquids down and he is not had any relief. He has not passed any gas in the past 24 hours. He denies any trauma. He denies any unusual activity. He denies noticing any blood in his stools. He had an NG tube placed in the ED which does show coffee-ground type returns. He is on Coumadin for A. fib. He did vomit quite profusely while he was down in the ER. There is concerned that he aspirated during this episode. He has been coughing up coffee-ground type materials. He was not having any fever or chills at home. He denies any chest pain or shortness of breath. He complains of abdominal pain and bloating currently. They have gotten at least 500 cc of coffee grounds out already. He has scant bowel sounds on exam. He does not have overt peritonitis. His urine output is dark and Love catheter will be placed. Consults Consult date: 03/02/21 Review of Systems All systems reviewed & are unremarkable except as noted in HPI and below [facility] Social History Smoking/Tobacco Use Status: Former Tobacco Use Smoking risk assessment performed?: Yes Alcohol Intake: current Alcohol Intake frequency: a few times a month Drug use: Never Do you feel safe at home: Yes Do you feel safe in your relationship?: Yes Exam HENMT Head: normal to inspection Ears: hearing grossly normal bilaterally General nose exam: external nose normal Mouth: oral mucosae normal Teeth and gingiva: multiple restorations Other: No jaundice. No eye pain or drainage or redness. No thrush. No JVD. Chest Chest: normal inspection of the chest Resp Effort & Inspection: normal respiratory effort, able to speak in complete sentences and cough Auscultation: rhonchi Cardio Other: A. fib rate controlled GI Other: He has a vertical midline incision. He has a left-sided open incision from a previous nephrectomy. There is no signs of herniation. Incisions are well-healed.. He has abdominal distention. He has no localized rebound or guarding. He has minimal bowel sounds. He has an NG tube in with [id number] returns Extrem General: no clubbing, cyanosis or edema Results Last Vital Signs Temp 35.9 C L 03/02/21 11:30 Pulse 88 03/02/21 12:55 Resp 20 03/02/21 11:50 BP 165/92 H 03/02/21 11:30 Pulse Ox 91 L 03/02/21 11:50 Labs Result diagrams: 03/03/21 06:15 03/03/21 06:15 Labs: Laboratory Results - last 24 hr 03/02/21 03/02/21 03/02/21 06:35 06:35 06:35 WBC 17.86 H RBC 4.84 Hgb 14.1 Hct 42.2 MCV 87.2 MCH 29.1 MCHC 33.4 RDW 15.5 H Plt Count 417 H MPV 10.7 Immature Gran % 0.0 Neutrophils % 88.0 Lymphocytes % 6.0 Monocytes % 6.0 Eosinophils % 0.0 Basophils % 0.0 Nucleated RBC % 0 Absolute Neutrophils 15.72 H Absolute Lymphocytes 1.07 L Absolute Monocytes 1.07 H Absolute Eosinophils 0.00 Absolute Basophils 0.00 RBC Morphology Normal PT 24.8 H D INR 2.5 H D APTT 32.7 H Sodium 139 Potassium 4.6 Chloride 103 Carbon Dioxide 24.5 Anion Gap 11.5 H BUN 17 Creatinine 1.1 Estimated GFR/1.73 m2 >= 60.00 Glucose 217 H Calcium 10.5 H Magnesium 1.3 L Total Bilirubin 0.9 AST 15 ALT 25 Alkaline Phosphatase 119 H Total Protein 8.1 Albumin 3.5 Lipase 399 H COVID-19 Source Patient ABO/Rh Antibody Screen 03/02/21 03/02/21 03/02/21 08:08 08:41 14:05 WBC 18.68 H RBC 4.80 Hgb 13.8 Hct 42.3 MCV 88.1 MCH 28.8 MCHC 32.6 RDW 15.6 H Plt Count 384 MPV 10.6 Immature Gran % 0.4 Neutrophils % 88.1 Lymphocytes % 5.5 Monocytes % 5.6 Eosinophils % 0.0 Basophils % 0.4 Nucleated RBC % 0 Absolute Neutrophils 16.46 H Absolute Lymphocytes 1.03 L Absolute Monocytes 1.05 H Absolute Eosinophils 0.00 Absolute Basophils 0.07 RBC Morphology PT INR APTT Sodium Potassium Chloride Carbon Dioxide Anion Gap BUN Creatinine Estimated GFR/1.73 m2 Glucose Calcium Magnesium Total Bilirubin AST ALT Alkaline Phosphatase Total Protein Albumin Lipase COVID-19 Source Nasal/nares Patient ABO/Rh O Positive Antibody Screen Negative
[2021-03-02 17:47] LABS: COVID-19 PCR Negative (Negative)
[2021-03-02] MEDS: Insulin Aspart 300 UNITS/3 ML PEN SC (17:59)
[2021-03-02] MEDS: PIPERACILLIN/TAZO 3.375 GM in Normal Saline 50 ML IVPB ×2 (18:49→22:04)
[2021-03-03] VITALS (57 sets, daily range): BP systolic 94–147; BP diastolic 48–98; PULSE 68–100; RESP 17–31; TEMP 36.3–36.6; O2SAT 87–96
--- NOTE | 2021-03-03 | DI.RAD_ITS ---
Exam(s) XR CHEST 2V PA LATERAL EXAM: XR CHEST 2V PA LATERAL CLINICAL HISTORY: aspiration. TECHNIQUE: 2D digital imaging was performed. COMPARISON: CR XR CHEST 2V PA LATERAL from 03/02/2021 FINDINGS: Heart size upper normal. Mediastinum is not widened. There is an NG tube in place. Distal tip appe ars to be in the stomach. Chest leads in place. Elevation of the right hemidiaphragm with pleural s carring in the right lung base is unchanged. Blunting left costophrenic angles unchanged. Mild infi ltrate left lung base. No pulmonary edema. No pneumothorax. IMPRESSION: Some infiltrate is noted in the left lower lobe left lung base retrocardiac region. Also small left pleural effusion.NG tube is in the stomach. DATA REPOSITORY: RADIATION DOSE DELIVERED:
--- NOTE | 2021-03-03 | DI.RAD_ITS ---
Exam(s) XR ABDOMEN FLAT PLATE EXAM: XR ABDOMEN FLAT PLATE CLINICAL HISTORY: SBO. TECHNIQUE: 2D digital imaging was performed. COMPARISON: CR XR CHEST 2V PA LATERAL from 03/03/2021 CR XR CHEST 2V PA LATERAL from 03/03/2021 FINDINGS: Distal tip of the NG tube is in stomach lateral wall region. Multiple surgical clips are seen left side of the abdomen. Bowel gas pattern is nonspecific. No obv ious calcification over the kidneys nor along the course of the ureters. No fracture seen. Scoliosi s convex right in the lumbar spine evident IMPRESSION: DATA REPOSITORY: RADIATION DOSE DELIVERED:
[2021-03-03] MEDS: Metoprolol 5 MG/5 ML VIAL IVP ×4 (00:47→18:24)
[2021-03-03] MEDS: Insulin Aspart 300 UNITS/3 ML PEN SC ×2 (01:00→12:47)
[2021-03-03] MEDS: Normal Saline 1,000 ML 100 ML IV (02:18)
[2021-03-03] MEDS: PIPERACILLIN/TAZO 3.375 GM in Normal Saline 50 ML IVPB ×3 (06:06→21:39)
[2021-03-03 06:38] LABS: Abs Immature Grans 0.09 10^3/uL (0.0-0.06); Absolute Eosinophil Count 0.02 10^3/uL (0.0-0.7); Absolute Monocyte Count 1.72 10^3/uL (0.1-0.8); Absolute Neutrophil Count 18.08 10^3/uL (1.2-6.7); Basophils % 0.3; Eosinophils % 0.1; Immature Grans % 0.4; Lymphocytes % 9.2; MCH 29.2 pg (27.0-33.0); MCHC 32.9 % (32.0-36.0); MCV 88.8 fL (80-95); MPV 10.9 fL (8.0-11.0); Monocytes % 7.8; Neutrophils % 82.2; Nucleated RBC 0 %; Platelet Count 335 10^3/uL (130-400); RBC 3.94 10^6/uL (4.36-5.78); RDW 15.6 % (11.8-14.1); RDW-SD 50.8 fL
[2021-03-03 06:42] LABS: Absolute Basophil Count 0.07 10^3/uL (0.0-0.2); Absolute Lymphocyte Count 2.02 10^3/uL (1.2-3.4)
[2021-03-03 06:44] LABS: HGB 11.5 g/dL (13.5-17.5)
[2021-03-03 06:48] LABS: INR 2.3 (0.9-1.1); Prothrombin Time 22.5 sec (9.3-11.0)
[2021-03-03 06:50] LABS: Lipase 618 U/L (73-393)
[2021-03-03 06:51] LABS: ALT 18 U/L (16-63); AST 12 U/L (15-37); Albumin 2.6 g/dL (3.4-5.0); Alkaline Phosphatase 85 U/L (46-116); Anion Gap 7.5 mmol/L (3-11); BUN 34 mg/dL (7-18); Bilirubin, Total 1.2 mg/dL (0.2-1.0); CO2 26.5 mmol/L (21.0-32.0); CREATININE 1.4 mg/dL (0.70-1.30); Calcium 8.8 mg/dL (8.5-10.1); Chloride 108 mmol/L (98-107); Estimated GFR 49.14 (mL/min/1.73m2); Glucose 194 mg/dL (74-106); Potassium 4.4 mmol/L (3.5-5.1); Sodium 142 mmol/L (136-145); Total Protein 6.3 g/dL (6.4-8.2)
[2021-03-03 06:58] LABS: Diff Comment Diff Reviewed; RBC Morphology Normal
[2021-03-03] MEDS: Pantoprazole 40 MG VIAL IVP ×2 (07:52→20:35)
[2021-03-03] MEDS: Normal Saline Flush 10 ML SYR IVP (07:53)
[2021-03-03] MEDS: Tiotropium Bromide-Respimat 10 PUFF INH 2 PUFF IH (08:35)
--- NOTE | 2021-03-03 09:34 | PDOC.CMPRO ---
- If Service Date Differs Date of service: 03/03/21 Time of Service: 09:34 Care Management Progress Note S/O:Geo was sitting up in bed when CM met with him. He stated that he feels light headed and weak today but is in much less pain than yesterday. He explained to CM that he has been through this before 5-6 times and knows the drill. Geo had a repeat Xray today. His WBC has increased from yesterday and a urinalysis was done. He has a hernandez catheter. He remains in the ICU being monitored and treated for his SBO. A: Ronald is a 76 year old man admitted on 03/02/21 with a SBO P:Anticipate Ronald will be discharged home with no services when medically cleared by provider. He will follow up with his PCP, surgeon, and discharge plan of care as directed. His , Veda, will drive him home via private vehicle when ready. CM will continue to support patient, family, and discharge planning needs.
[2021-03-03] MEDS: Normal Saline 1,000 ML 150 ML IV ×2 (09:54→17:57)
[2021-03-03 10:10] LABS: Bilirubin Negative (Negative); Blood Negative (Negative); Clarity Clear (Clear); Glucose Negative (Negative); Ketones Negative (Negative); Leukocyte Esterase Negative (Negative); Nitrite Negative (Negative); Specific Gravity 1.025 (1.005-1.025); Urobilinogen 0.2 EU/dL (Up TO 0.2); pH 5.5 (5-8)
--- NOTE | 2021-03-03 11:17 | PGE_ITS ---
Documented by User: CYNTHIA Toro 03/03/21 11:22 Date of Service Date of service: 03/03/21 Time of Service: 09:00 Assessment and Plan Assessment and plan (1) Small bowel obstruction: Status: Acute Assessment and plan: NG tube in place. Output of 25mL since 0600. Pain has improved per the patient. No flatus or BM. Encouraged use of incentive spirometer. Ambulation as tolerated. May clamp NG tube for ambulation. Continue with pain control, NG tube decompression. Subjective Subjective Interval history since last seen: Patient reports that he is feeling much better compared to yesterday. He denies passing any flatus. Denies any nausea or vomiting at this time. Exam Const General: cooperative and comfortable Orientation: alert and oriented x3 Resp Effort & Inspection: normal respiratory effort, no audible wheezes and no cough GI Palpation: soft, no guarding and tender periumbilically Objective Last Vital Signs Temp 36.5 C 03/03/21 07:57 Pulse 74 03/03/21 09:01 Resp 24 03/03/21 09:01 BP 109/58 L 03/03/21 09:01 Pulse Ox 95 03/03/21 09:01 Laboratory Results - last 24 hr 03/02/21 03/02/21 03/03/21 08:41 14:05 06:15 WBC 18.68 H RBC 4.80 Hgb 13.8 Hct 42.3 MCV 88.1 MCH 28.8 MCHC 32.6 RDW 15.6 H Plt Count 384 MPV 10.6 Immature Gran % 0.4 Neutrophils % 88.1 Lymphocytes % 5.5 Monocytes % 5.6 Eosinophils % 0.0 Basophils % 0.4 Nucleated RBC % 0 Absolute Neutrophils 16.46 H Absolute Lymphocytes 1.03 L Absolute Monocytes 1.05 H Absolute Eosinophils 0.00 Absolute Basophils 0.07 RBC Morphology PT 22.5 H INR 2.3 H Sodium Potassium Chloride Carbon Dioxide Anion Gap BUN Creatinine Estimated GFR/1.73 m2 Glucose Calcium Magnesium Total Bilirubin AST ALT Alkaline Phosphatase Total Protein Albumin Lipase Urine Color Urine Clarity Urine pH Ur Specific [place] Urine Protein Urine Ketones Urine Blood Urine Nitrite Urine Bilirubin Urine Urobilinogen Ur Leukocyte Esterase Urine Glucose SARS-CoV-2 (PCR) Negative 03/03/21 03/03/21 03/03/21 06:15 06:15 06:15 WBC 22.00 H RBC 3.94 L Hgb 11.5 L D Hct 35.0 L MCV 88.8 MCH 29.2 MCHC 32.9 RDW 15.6 H Plt Count 335 MPV 10.9 Immature Gran % 0.4 Neutrophils % 82.2 Lymphocytes % 9.2 Monocytes % 7.8 Eosinophils % 0.1 Basophils % 0.3 Nucleated RBC % 0 Absolute Neutrophils 18.08 H Absolute Lymphocytes 2.02 Absolute Monocytes 1.72 H Absolute Eosinophils 0.02 Absolute Basophils 0.07 RBC Morphology Normal PT INR Sodium 142 Potassium 4.4 Chloride 108 H Carbon Dioxide 26.5 Anion Gap 7.5 BUN 34 H D Creatinine 1.4 H Estimated GFR/1.73 m2 49.14 Glucose 194 H Calcium 8.8 Magnesium 2.0 Total Bilirubin 1.2 H AST 12 L ALT 18 Alkaline Phosphatase 85 Total Protein 6.3 L Albumin 2.6 L Lipase 618 H Urine Color Urine Clarity Urine pH Ur Specific [place] Urine Protein Urine Ketones Urine Blood Urine Nitrite Urine Bilirubin Urine Urobilinogen Ur Leukocyte Esterase Urine Glucose SARS-CoV-2 (PCR) 03/03/21 09:40 WBC RBC Hgb Hct MCV MCH MCHC RDW Plt Count MPV Immature Gran % Neutrophils % Lymphocytes % Monocytes % Eosinophils % Basophils % Nucleated RBC % Absolute Neutrophils Absolute Lymphocytes Absolute Monocytes Absolute Eosinophils Absolute Basophils RBC Morphology PT INR Sodium Potassium Chloride Carbon Dioxide Anion Gap BUN Creatinine Estimated GFR/1.73 m2 Glucose Calcium Magnesium Total Bilirubin AST ALT Alkaline Phosphatase Total Protein Albumin Lipase Urine Color Yellow Urine Clarity Clear Urine pH 5.5 Ur Specific [place] 1.025 Urine Protein Negative Urine Ketones Negative Urine Blood Negative Urine Nitrite Negative Urine Bilirubin Negative Urine Urobilinogen 0.2 Ur Leukocyte Esterase Negative Urine Glucose Negative SARS-CoV-2 (PCR) Documented by User: Erlinda Carolina DO 03/03/21 19:17 Assessment and Plan Assessment and plan (1) Small bowel obstruction: Status: Acute Assessment and plan: passing occ flatus. good BS tonight. was up walking today. NGT-350cc for 8hrs. Billous in nature (2) Leukocytosis (leucocytosis): Status: Acute Assessment and plan: ? from aspiration CXR reviewed- +cough - working w/ resp fluid ahead I: 1500 O: 900 (3) Pneumonia: Status: Acute (4) Hematemesis: Status: Acute Assessment and plan: hgb 11.5 PPI holding lovenox
--- NOTE | 2021-03-03 11:59 | W.PM.PROGNOT ---
Date of Service Date of service: 03/03/21 Time of Service: 12:00 Assessment and Plan Assessment and plan (1) Small bowel obstruction: Status: Acute Assessment and plan: NG to suction. Gen Surg following (2) Hypomagnesemia: Status: Acute Assessment and plan: Normalized. (3) Pneumonia: Status: Acute Assessment and plan: New finding on CXR. WBC count elevated. RLL. Zosyn initiated. Subjective Subjective Patient reports: no new complaints, pain is less (Diffuse abd discomfort), no flatus, shortness of breath and afebrile Interval history since last seen: He denies cough/sputum Exam Const General: cooperative and no acute distress Orientation: alert and oriented x3 HENMT General nose exam: other (NG in place) Eyes Sclera: sclerae normal Pupils: PERRL Resp Effort & Inspection: normal respiratory effort Auscultation: clear to auscultation bilaterally Cardio Rate: regular rate Rhythm: regular rhythm Heart Sounds: S1 normal and S2 normal GI Inspection: distended Palpation: soft and tender (diffuse) Extrem General: no pedal edema and no calf tenderness Psych Appearance: grossly normal Mental Status: mental status grossly normal Speech and Movement: speech and movement normal Objective Last Vital Signs Temp 36.5 C 03/03/21 07:57 Pulse 74 03/03/21 09:01 Resp 24 03/03/21 09:01 BP 109/58 L 03/03/21 09:01 Pulse Ox 95 03/03/21 09:01 Laboratory Results - last 24 hr 03/02/21 03/02/21 03/03/21 08:41 14:05 06:15 WBC 18.68 H RBC 4.80 Hgb 13.8 Hct 42.3 MCV 88.1 MCH 28.8 MCHC 32.6 RDW 15.6 H Plt Count 384 MPV 10.6 Immature Gran % 0.4 Neutrophils % 88.1 Lymphocytes % 5.5 Monocytes % 5.6 Eosinophils % 0.0 Basophils % 0.4 Nucleated RBC % 0 Absolute Neutrophils 16.46 H Absolute Lymphocytes 1.03 L Absolute Monocytes 1.05 H Absolute Eosinophils 0.00 Absolute Basophils 0.07 RBC Morphology PT 22.5 H INR 2.3 H Sodium Potassium Chloride Carbon Dioxide Anion Gap BUN Creatinine Estimated GFR/1.73 m2 Glucose Calcium Magnesium Total Bilirubin AST ALT Alkaline Phosphatase Total Protein Albumin Lipase Urine Color Urine Clarity Urine pH Ur Specific [place] Urine Protein Urine Ketones Urine Blood Urine Nitrite Urine Bilirubin Urine Urobilinogen Ur Leukocyte Esterase Urine Glucose SARS-CoV-2 (PCR) Negative 03/03/21 03/03/21 03/03/21 06:15 06:15 06:15 WBC 22.00 H RBC 3.94 L Hgb 11.5 L D Hct 35.0 L MCV 88.8 MCH 29.2 MCHC 32.9 RDW 15.6 H Plt Count 335 MPV 10.9 Immature Gran % 0.4 Neutrophils % 82.2 Lymphocytes % 9.2 Monocytes % 7.8 Eosinophils % 0.1 Basophils % 0.3 Nucleated RBC % 0 Absolute Neutrophils 18.08 H Absolute Lymphocytes 2.02 Absolute Monocytes 1.72 H Absolute Eosinophils 0.02 Absolute Basophils 0.07 RBC Morphology Normal PT INR Sodium 142 Potassium 4.4 Chloride 108 H Carbon Dioxide 26.5 Anion Gap 7.5 BUN 34 H D Creatinine 1.4 H Estimated GFR/1.73 m2 49.14 Glucose 194 H Calcium 8.8 Magnesium 2.0 Total Bilirubin 1.2 H AST 12 L ALT 18 Alkaline Phosphatase 85 Total Protein 6.3 L Albumin 2.6 L Lipase 618 H Urine Color Urine Clarity Urine pH Ur Specific [place] Urine Protein Urine Ketones Urine Blood Urine Nitrite Urine Bilirubin Urine Urobilinogen Ur Leukocyte Esterase Urine Glucose SARS-CoV-2 (PCR) 03/03/21 09:40 WBC RBC Hgb Hct MCV MCH MCHC RDW Plt Count MPV Immature Gran % Neutrophils % Lymphocytes % Monocytes % Eosinophils % Basophils % Nucleated RBC % Absolute Neutrophils Absolute Lymphocytes Absolute Monocytes Absolute Eosinophils Absolute Basophils RBC Morphology PT INR Sodium Potassium Chloride Carbon Dioxide Anion Gap BUN Creatinine Estimated GFR/1.73 m2 Glucose Calcium Magnesium Total Bilirubin AST ALT Alkaline Phosphatase Total Protein Albumin Lipase Urine Color Yellow Urine Clarity Clear Urine pH 5.5 Ur Specific [place] 1.025 Urine Protein Negative Urine Ketones Negative Urine Blood Negative Urine Nitrite Negative Urine Bilirubin Negative Urine Urobilinogen 0.2 Ur Leukocyte Esterase Negative Urine Glucose Negative SARS-CoV-2 (PCR)
--- NOTE | 2021-03-03 14:40 | IN_ITS ---
Date of service: 03/03/21 Time of Service: 14:40 PT Notes Visit Reasons: Small Bowel Obstruction Physical Therapy Inpatient Initial Evaluation Date: 03/03/2021 Referring Doctor: Alcon Blanco MD PT Orders: PT CONSULT: Eval/treat Precautions: Fall. Standard. Activity as tolerated. On full liquid diet. Patient Profile/Admitting Diagnosis: Ronald is a 76-year-old male with past medical history significant for kidney carcinoma status post nephrectomy who presented to the ED on 03/02/2021 due to abdominal pain, nausea, and vomiting. Patient is diagnosed with small bowel obstruction, hypomagnesemia, and pneumonia. PMHX: Kidney carcinoma Social History/Home Situation: Lives with in a private home with 3-4 steps to enter with 1 rail. They have another 16 steps that lead to the turpin with rails on both sides. At baseline, patient is independent with all indoor ambulation without any assistive device but uses a single-point cane for long distances. Equipment Owned/DME: Single-point cane Subjective: Pleasant and cooperative. Feels weak and unsteady when he was asked to stand up and walk, states that he has never felt that this weak in a long time. Feels that he is a little off balance today. Indicates that he has not fallen in the past 12 months. Objective: General Observation: NGT in place. Telemetry monitoring in place. IV in right UE. Mental Status: Alert and oriented as to person, place, time, and purpose. Able to pay attention, focus, and respond appropriately. Pain: 0/10 ROM: Right Upper Extremity: Shoulder Flexion WFL. Shoulder abduction WFL. Shoulder ER/IR WFL. Elbow flexion WFL. Forearm pronation/supination WFL. Wrist flexion WFL. Opening and closing of hand WFL. Left Upper Extremity: Shoulder Flexion WFL. Shoulder abduction WFL. Shoulder ER/IR WFL. Elbow flexion WFL. Forearm pronation/supination WFL. Wrist flexion WFL. Opening and closing of hand WFL. Right Lower Extremity: Hip flexion WFL. Hip abduction WFL. Hip ER/IR WFL. Knee flexion WFL. Knee extension. Ankle dorsiflexion/eversion WFL. Ankle plantar flexion/inversion WFL. Left Lower Extremity: Hip flexion WFL. Hip abduction WFL. Hip ER/IR WFL. Knee flexion WFL. Knee extension. Ankle dorsiflexion WFL. Ankle plantarflexion WFL. Strength: Right Upper Extremity: Shoulder flexors 4/5. Shoulder abductors 4/5. Shoulder ER 4/5. Shoulder IR 4/5. Forearm pronators 4/5. Forearm supinators 4/5. Elbow flexors 4/5. Elbow extensors 4/5. Police Manager strong. Left Upper Extremity: Shoulder flexors 4/5. Shoulder abductors 4/5. Shoulder ER 4/5. Shoulder IR 4/5. Forearm pronators 4/5. Forearm supinators 4/5. Elbow flexors 4/5. Elbow extensors 4/5. Police Manager strong. Right Lower Extremity: Hip flexors 4-/5. Hip abductors 4-/5. Hip external rotators 4-/5. Hip internal rotators 4-/5. Knee flexors 4-/5. Knee extensors 4- /5. Ankle dorsiflexors/evertors 4-/5. Ankle plantarflexors/invertors 4-/5. Left Lower Extremity: Hip flexors 4-/5. Hip abductors 4-/5. Hip external rotators 4-/5. Hip internal rotators 4-/5. Knee flexors 4-/5. Knee extensors 4- /5. Ankle dorsiflexors/evertors 4-/5. Ankle plantarflexors/invertors 4-/5. Bed Mobility/Transfers: Rolling standby assist Supine to sit standby assist with HOB at 30 degrees Sit to supine contact-guard assist Sit to stand standby assist Stand to sit contact-guard assist Bed to chair Gait: Distance of about 300 feet requiring contact-guard assist. Dedra decreased. Mild SOB. No LOB. Mildly shaky. Balance: Static Sitting: Normal Dynamic Sitting: Good Static Standing: Fair Dynamic Standing: Fair Special Tests: Mobility Limitations Standardized Measure [facility]-PAC 6 clicks Basic Mobility Inpatient Short Form: Raw Score: 18 CMS Score: 47% deficit Informed Consent/Education: Patient instructed in purpose of PT consult and plan of care. Agreeable to proceed with established PT POC to achieve personal goals. Assessment: Ronald demonstrates functional mobility decline requiring the use of a front wheeled walker for all mobility ADL performance, impairment in balance, generalized weakness, difficulty with walking, and increased risk for falls due to admitting diagnoses. Patient presents with clinical signs and symptoms consistent with current/admitting diagnoses that have resulted to mobility limitations, gait instability, generalized weakness, and impairment of motor control as demonstrated by the following impairment level findings: 1. Decreased strength to BUE/LE major muscle groups 2. Impaired sitting/standing balance 3. Impaired activity tolerance Impairments are contributing to the following functional limitations: 1. Dependent bed mobility skills 2. Increased dependence with transfers 3. Inability to safely ambulate without assistive device and physical assistance 4. Increased completion time for mobility ADL performance 5. Increased fall risk 6. Inability to negotiate steps alone safely 7. Inability to return to prior living environment at this time Patient is assessed as a complexity based on the following: History: 76 ofvo-apro-wup with past medical history as indicated above Examination: Demonstrable impairment in strength, balance, and mobility level with underlying impairments and functional limitations as exhibited above as well as deficit score of 47% utilizing the [facility] Mobility Inpatient Short Form Presentation: Evolving Decision Makin moderate complexity Goals: Goals X1 week 1. Supine-Sit independent 2. Sit-Supine independent 3. Sit-Stand independent 4. Stand-Sit independent 5. Bed-Chair independent 6. Chair-Bed independent 7. Independent gait on level surface with use of no assistive device for at least 500 feet without report of pain nor dyspnea 8. Independent stair negotiation while holding onto 1 rail for at least 16 steps without report of pain nor dyspnea 9. Independent with home exercise program 10. Good static and dynamic standing balance/tolerance Plan of Care/Treatment Plan: 1-2x/day, 7 days/week x 1 week. Plan of care has been reviewed with the [facility] providing the service under Physical Therapy direction. Initiate Physical Therapy intervention for pain management as needed, strengthening, bed mobility, transfers, gait, stairs, balance training, and use of assistive device. DISCHARGE RECOMMENDATIONS: Patient will benefit from home health PT services in order to progress mobility level using least restrictive assistive ambulatory device, assess home safety, identify additional equipment needs, and establish a functional maintenance program that will increase ability of patient to remain at home. TREATMENT CODE/TIME: 59130 x 25 minutes, 77165 x 25 minutes beginning at 14:40 PM. Thank you for the opportunity to participate in the care of this patient. Romana Castro PT, DPT, CLT [facility], [place]
[2021-03-04] VITALS (42 sets, daily range): BP systolic 103–174; BP diastolic 51–90; PULSE 70–108; RESP 17–35; TEMP 36.4–38; O2SAT 80–100
[2021-03-04] MEDS: Metoprolol 5 MG/5 ML VIAL IVP ×3 (00:49→15:14)
[2021-03-04] MEDS: Normal Saline 1,000 ML 150 ML IV (00:52)
[2021-03-04] MEDS: PIPERACILLIN/TAZO 3.375 GM in Normal Saline 50 ML IVPB ×3 (05:29→21:50)
[2021-03-04 07:11] LABS: INR 1.6 (0.9-1.1); Prothrombin Time 15.8 sec (9.3-11.0)
[2021-03-04 07:14] LABS: ALT 22 U/L (16-63); AST 28 U/L (15-37); Albumin 2.6 g/dL (3.4-5.0); Alkaline Phosphatase 81 U/L (46-116); Anion Gap 9.7 mmol/L (3-11); BUN 28 mg/dL (7-18); Bilirubin, Total 1.3 mg/dL (0.2-1.0); CO2 23.3 mmol/L (21.0-32.0); CREATININE 1.1 mg/dL (0.70-1.30); Calcium 8.5 mg/dL (8.5-10.1); Chloride 109 mmol/L (98-107); Glucose 114 mg/dL (74-106); Potassium 3.8 mmol/L (3.5-5.1); Sodium 142 mmol/L (136-145); Total Protein 6.6 g/dL (6.4-8.2)
[2021-03-04 07:15] LABS: Abs Immature Grans 0.09 10^3/uL (0.0-0.06); Absolute Basophil Count 0.11 10^3/uL (0.0-0.2); Absolute Eosinophil Count 0.15 10^3/uL (0.0-0.7); Absolute Lymphocyte Count 2.26 10^3/uL (1.2-3.4); Absolute Monocyte Count 1.42 10^3/uL (0.1-0.8); Absolute Neutrophil Count 14.46 10^3/uL (1.2-6.7); Basophils % 0.6; Eosinophils % 0.8; HCT 34.8 % (40.0-50.0); HGB 11.4 g/dL (13.5-17.5); Immature Grans % 0.5; Lymphocytes % 12.2; MCH 29.1 pg (27.0-33.0); MCHC 32.8 % (32.0-36.0); MCV 88.8 fL (80-95); MPV 11.1 fL (8.0-11.0); Monocytes % 7.7; Neutrophils % 78.2; Nucleated RBC 0 %; Platelet Count 293 10^3/uL (130-400); RBC 3.92 10^6/uL (4.36-5.78); RDW-SD 51.9 fL; WBC 18.49 10^3/uL (4.4-10.8)
--- NOTE | 2021-03-04 07:32 | PDOC.CMPRO ---
- If Service Date Differs Date of service: 03/04/21 Time of Service: 07:32 Care Management Progress Note S/O:Geo was sitting up in bed visiting with his when CM met with him. His NG tube was removed today and he stated that he was feeling much better. He does have pneumonia but his WBC has improved, he is afebrile and his O2 sats have been in the mid 90's on room air. Geo and his shared that they hope to be able to travel to [place] this weekend to celebrate their grandson's first birthday and Father's Day. They denied the need for services at home. A: Ronald is a 76 year old man admitted on 03/02/21 with a SBO P:Anticipate Ronald will be discharged home with no services when medically cleared by provider. He will follow up with his PCP, surgeon, and discharge plan of care as directed. His , Veda, will drive him home via private vehicle when ready. CM will continue to support patient, family, and discharge planning needs. cc:
--- NOTE | 2021-03-04 07:49 | W.PM.PROGNOT ---
Date of Service Date of service: 03/04/21 Time of Service: 07:49 Assessment and Plan Assessment and plan (1) Liposarcoma of retroperitoneum: Status: Acute (2) History of radical nephrectomy: Status: Acute (3) Localized enlarged lymph nodes: Status: Acute Assessment and plan: Noted in left iliac most recent CT. Given patient's history of cancer this should be followed up with. Patient receives all his follow-up oncologic care at [facility]. Patient will be instructed to follow-up regarding this upon DC. (4) Small bowel obstruction: Status: Acute Assessment and plan: Clinically improving. Will give mid mag citrate and clamp his NG tube this a.m. Continue walking. Hopefully start clear liquids later this a.m. patient is hungry (5) Hematemesis: Status: Acute (6) Pneumonia: Status: Acute Assessment and plan: Continue pulmonary toilet. Infiltrate left lung base on chest x-ray from 03/03. Clinically improved. Continue Zosyn (7) Atrial fibrillation with controlled ventricular rate: Status: Acute (8) On Coumadin for atrial fibrillation: Status: Acute (9) GI bleed: Status: Chronic Assessment and plan: hgb stable cont PPI Subjective Subjective Interval history since last seen: Pt is doing well. no headaches. No CP or SOB. no leg pain or swelling. Patient states he was coughing up material yesterday. Not so much today. He is up walking and passing gas. No BM. He is hungry. Good acid BS. Min ouput from NGT tube over night- bilious in color. no abdom pain Exam Chest Chest: normal inspection of the chest Other: No pain or crepitus. Good air movement. Resp Effort & Inspection: normal respiratory effort and able to speak in complete sentences Auscultation: clear to auscultation bilaterally Cardio Other: Chronic A. fib. Rate controlled. GI Inspection: scar Palpation: soft, no hernias, nontender and No ascites Auscultation: normal bowel sounds Extrem General: no clubbing, cyanosis or edema Objective Last Vital Signs Temp 36.5 C 03/04/21 04:00 Pulse 73 03/04/21 06:01 Resp 22 03/04/21 06:01 BP 149/69 H 03/04/21 06:01 Pulse Ox 97 03/04/21 06:01 Laboratory Results - last 24 hr 03/03/21 03/04/21 03/04/21 09:40 06:31 06:31 WBC RBC Hgb Hct MCV MCH MCHC RDW Plt Count MPV Immature Gran % Neutrophils % Lymphocytes % Monocytes % Eosinophils % Basophils % Nucleated RBC % Absolute Neutrophils Absolute Lymphocytes Absolute Monocytes Absolute Eosinophils Absolute Basophils PT 15.8 H D INR 1.6 H D Sodium Potassium Chloride Carbon Dioxide Anion Gap BUN Creatinine Estimated GFR/1.73 m2 Glucose Calcium Total Bilirubin AST ALT Alkaline Phosphatase Total Protein Albumin Lipase Cancelled Urine Color Yellow Urine Clarity Clear Urine pH 5.5 Ur Specific [place] 1.025 Urine Protein Negative Urine Ketones Negative Urine Blood Negative Urine Nitrite Negative Urine Bilirubin Negative Urine Urobilinogen 0.2 Ur Leukocyte Esterase Negative Urine Glucose Negative 03/04/21 03/04/21 06:31 06:31 WBC 18.49 H RBC 3.92 L Hgb 11.4 L Hct 34.8 L MCV 88.8 MCH 29.1 MCHC 32.8 RDW 16.0 H Plt Count 293 MPV 11.1 H Immature Gran % 0.5 Neutrophils % 78.2 Lymphocytes % 12.2 Monocytes % 7.7 Eosinophils % 0.8 Basophils % 0.6 Nucleated RBC % 0 Absolute Neutrophils 14.46 H Absolute Lymphocytes 2.26 Absolute Monocytes 1.42 H Absolute Eosinophils 0.15 Absolute Basophils 0.11 PT INR Sodium 142 Potassium 3.8 Chloride 109 H Carbon Dioxide 23.3 Anion Gap 9.7 BUN 28 H Creatinine 1.1 Estimated GFR/1.73 m2 >= 60.00 Glucose 114 H D Calcium 8.5 Total Bilirubin 1.3 H AST 28 ALT 22 Alkaline Phosphatase 81 Total Protein 6.6 Albumin 2.6 L Lipase Urine Color Urine Clarity Urine pH Ur Specific [place] Urine Protein Urine Ketones Urine Blood Urine Nitrite Urine Bilirubin Urine Urobilinogen Ur Leukocyte Esterase Urine Glucose
--- NOTE | 2021-03-04 08:00 | DI.US_ITS ---
Exam(s) US ABDOMEN LIMITED EXAM: US ABDOMEN LIMITED CLINICAL HISTORY: attn to [facility] only TECHNIQUE: Ultrasound abdomen performed using technique limited to the gallbladder. COMPARISON: No exams were available for comparison FINDINGS: There is no ascites evident. GALLBLADDER/BILIARY: There are no gallstones. No gallbladder wall edema nor pericholecystic fluid. The common hepatic duct isnot dilated, measuring 5-6mm at the level of lisa hepatis. IMPRESSION: 1. No evidence of cholelithiasis nor dilatation of the biliary tree. 2. Liver, pancreas, and kidneys are not scanned. 3. There is no ascites. DATA REPOSITORY:
[2021-03-04 08:10] LABS: Lipase 153 U/L (73-393)
[2021-03-04] MEDS: Tiotropium Bromide-Respimat 10 PUFF INH 2 PUFF IH (08:40)
[2021-03-04] MEDS: Magnesium Citrate 300 ML BTL PO (09:07)
[2021-03-04] MEDS: Normal Saline Flush 10 ML SYR IVP ×3 (09:07→20:22)
[2021-03-04] MEDS: Pantoprazole 40 MG VIAL IVP ×2 (09:07→20:21)
[2021-03-04] MEDS: Normal Saline 1,000 ML 120 ML IV (10:28)
--- NOTE | 2021-03-04 12:33 | W.PM.PROGNOT ---
Date of Service Date of service: 03/04/21 Time of Service: 12:34 Assessment and Plan Assessment and plan (1) Pneumonia: Status: Acute Assessment and plan: RLL infiltrate. WBC count trending downward. Cont Zosyn. (2) Small bowel obstruction: Status: Acute Assessment and plan: NG output has decreased. Gen Surg following and they ordered a MgCitrate this AM. Ambulate. (3) Atrial fibrillation with controlled ventricular rate: Status: Acute Assessment and plan: Holding coumadin. Cont IV Lopressor Subjective Subjective Patient reports: no new complaints, no flatus and afebrile; denies nausea, vomiting and shortness of breath Exam Const General: cooperative and no acute distress Nutritional Appearance: obese Orientation: oriented x3 Resp Effort & Inspection: normal respiratory effort Auscultation: clear to auscultation bilaterally Cardio Rate: regular rate Rhythm: regular rhythm Heart Sounds: S1 normal and S2 normal GI Palpation: soft and nontender Neuro General: no focal motor deficits Cognition: normal cognition Speech: speech normal Extrem General: no pedal edema and no calf tenderness Objective Last Vital Signs Temp 36.4 C L 03/04/21 08:15 Pulse 76 03/04/21 08:15 Resp 22 03/04/21 06:01 BP 149/69 H 03/04/21 06:01 Pulse Ox 97 03/04/21 06:01 Laboratory Results - last 24 hr 03/04/21 03/04/21 03/04/21 06:31 06:31 06:31 WBC RBC Hgb Hct MCV MCH MCHC RDW Plt Count MPV Immature Gran % Neutrophils % Lymphocytes % Monocytes % Eosinophils % Basophils % Nucleated RBC % Absolute Neutrophils Absolute Lymphocytes Absolute Monocytes Absolute Eosinophils Absolute Basophils PT 15.8 H D INR 1.6 H D Sodium 142 Potassium 3.8 Chloride 109 H Carbon Dioxide 23.3 Anion Gap 9.7 BUN 28 H Creatinine 1.1 Estimated GFR/1.73 m2 >= 60.00 Glucose 114 H D Calcium 8.5 Total Bilirubin 1.3 H AST 28 ALT 22 Alkaline Phosphatase 81 Total Protein 6.6 Albumin 2.6 L Lipase Cancelled 03/04/21 03/04/21 06:31 07:54 WBC 18.49 H RBC 3.92 L Hgb 11.4 L Hct 34.8 L MCV 88.8 MCH 29.1 MCHC 32.8 RDW 16.0 H Plt Count 293 MPV 11.1 H Immature Gran % 0.5 Neutrophils % 78.2 Lymphocytes % 12.2 Monocytes % 7.7 Eosinophils % 0.8 Basophils % 0.6 Nucleated RBC % 0 Absolute Neutrophils 14.46 H Absolute Lymphocytes 2.26 Absolute Monocytes 1.42 H Absolute Eosinophils 0.15 Absolute Basophils 0.11 PT INR Sodium Potassium Chloride Carbon Dioxide Anion Gap BUN Creatinine Estimated GFR/1.73 m2 Glucose Calcium Total Bilirubin AST ALT Alkaline Phosphatase Total Protein Albumin Lipase 153
--- NOTE | 2021-03-04 14:58 | PHA.REVIEW ---
Pharmacy Admission Review - Admission Clinical Review (Last Reviewed 03/03/21 @ 22:20 by Erlinda Carolina DO) On Coumadin for atrial fibrillation (Acute) Atrial fibrillation with controlled ventricular rate (Acute) Localized enlarged lymph nodes (Acute) History of radical nephrectomy (Acute) Liposarcoma of retroperitoneum (Acute) Leukocytosis (leucocytosis) (Acute) Pneumonia (Acute) Small bowel obstruction (Acute) Hematemesis (Acute) Hypomagnesemia (Acute) indomethacin [From Indocin] Allergy (Unverified 03/02/21 06:28) levofloxacin Allergy (Unverified 03/02/21 06:28) metronidazole [From Flagyl] Allergy (Unverified 03/02/21 06:28) Resuscitation Status Full Code Height 6 ft Weight 114.1 kg - Renal Dosing Renal Dosing: BUN 28 mg/dL (7-18) H 03/04/21 06:31 Creatinine 1.1 mg/dL (0.70-1.30) 03/04/21 06:31 Medications needing adjustments: Reviewed List of meds needing interventions: eCrCl using adjusted bw is 73 ml/min - Anticoagulation Anticoagulation: Hgb 11.4 g/dL (13.5-17.5) L 03/04/21 06:31 Hct 34.8 % (40.0-50.0) L 03/04/21 06:31 Plt Count 293 10^3/uL (130-400) 03/04/21 06:31 INR 1.6 (0.9-1.1) H D 03/04/21 06:31 Creatinine 1.1 mg/dL (0.70-1.30) 03/04/21 06:31 DVT Prohphylaxis: Reviewed Therapeutic Anticoagulation: Reviewed Medications: Warfarin - Opiate Usage Evaluate Pain Scale/Pains Meds: Reviewed Scheduled Bowel Reg ordered if on Opiates?: No (SBO...) - Relevant Labs Sodium 142 mmol/L (136-145) 03/04/21 06:31 Potassium 3.8 mmol/L (3.5-5.1) 03/04/21 06:31 Chloride 109 mmol/L (98-107) H 03/04/21 06:31 Magnesium 2.0 mg/dL (1.8-2.4) 03/03/21 06:15 - DM Control DM Control: Glucose 114 mg/dL (74-106) H D 03/04/21 06:31 Finger Stick Blood Glucose 122 Finger Stick Blood Glucose 122 Finger Stick Blood Glucose 106 Finger Stick Blood Glucose 106 Finger Stick Blood Glucose 106 Insulin Dosing: Reviewed (aspart per SS ordered; uses long acting at home but patient has been NPO) - Heart Failure/NC EF%, MARIE's, B-Blockers, Diuretics: Reviewed - BP Control BP Control: Blood Pressure 149/69 Blood Pressure 131/63 Blood Pressure 131/63 Blood Pressure 142/60 Blood Pressure 132/52 Blood Pressure 135/59 If elevated: Reviewed - Qtc Review If Elevated: N/A - IV to PO Switch IV Medications: Reviewed - Home Meds Home Med List reviewed: Reviewed Relevent Home Meds Not ordered & why?: insulin glargine, metformin (ss aspart ordered), diazepam, trospium (Sanctura); questioning omeprazole dosed TID but it appears ED RNs did thoroughly confirm this with pt - Current meds Current Medication Order Review: Reviewed (zosyn extended infusion at 3.375 gm over 4 hours every 8 hours)
--- NOTE | 2021-03-04 15:10 | PT.INTREAT ---
Date of service: 03/04/21 Time of Service: 15:10 PT Notes Visit Reasons: Small Bowel Obstruction Inpatient Physical Therapy Treatment Note [facility] Date: 03/04/2021 PRECAUTIONS: Activity as tolerated. Full liquid diet. SUBJECTIVE: Patient reports that he was awake very early this morning. Agreeable to both morning and afternoon. Expresses that he just had a laxative this morning and may need to go anytime. OBJECTIVE: NGT discharged this afternoon. Telemetry monitoring remains in place. PAIN: None reported BED MOBILITY/TRANSFERS Rolling L/R: Independent Supine-sit: Independent with HOB at 30 degrees Sit-supine: Independent Sit-stand: Supervision Stand-sit: Supervision Bed-Chair: Supervision Chair-bed: Supervision GAIT Assistive Device: Front wheeled walker Weight bearing: Full weight bearing Assist: Standby assist in the morning, supervision in the afternoon Distance: 350 in the morning and 400 feet in the afternoon Deviation: Mild shortness of breath observed. No path deviation. Gait speed increasing. Shakiness diminishing. Continues to report weakness but feels much better today than he did yesterday. VITALS: HR stayed between 72 and 96 bpm throughout session as seen on telemetry THEREX: Initiated strengthening exercises using 3 pound ankle weights and dumbbells to increase BUE and LE strength. Please see exercise sheet for details. ASSESSMENT: Patient demonstrates increasing activity tolerance with decreasing shortness of breath and report of decreasing fatigue. NGT removed this afternoon but patient remains on full liquid diet. PLAN: Continue with strength training as tolerated. Will benefit from extensive stairs training as patient has 16 steps to go down to the turpin, rails on both sides. DISCHARGE RECOMMENDATIONS: Patient will benefit from home health PT services in order to progress mobility level using least restrictive assistive ambulatory device, assess home safety, identify additional equipment needs, and establish a functional maintenance program that will increase ability of patient to remain at home. TREATMENT CODE/TIME: Session 1??[id number] x 18 minutes beginning at 10:32 AM. Session 2??[id number] x 25 minutes, [id number] x 15 minutes beginning at 15:10 PM.
--- NOTE | 2021-03-04 15:53 | CHAPLAIN ---
Geo was sleeping when I visited. I spoke with his Veda. She and Geo have a camp on [address] and they spend about 5 months there, and the rest of the year in [place]. She said they consider themselves vee every day that they're at their camp. While they're in [place] they attend the [facility].
--- NOTE | 2021-03-04 19:05 | NUR.NOTE ---
Addendum entered by Lida Whitman 03/04/21 19:20: PT TRANSFERED AT 1845 Original Note: PT TRANSFERED FROM ICU VIA WHEELCHAIR TO ROOM 214- NO C/O'S AT THIS TIME
[2021-03-04] MEDS: Warfarin 5 MG TAB PO (20:21)
[2021-03-04] MEDS: Omeprazole 20 MG CAPCR 40 MG PO (20:21)
[2021-03-04] MEDS: Atorvastatin 10 MG TAB PO (21:49)
[2021-03-05] MEDS: Normal Saline 1,000 ML 120 ML IV (04:31)
[2021-03-05] MEDS: PIPERACILLIN/TAZO 3.375 GM in Normal Saline 50 ML IVPB (05:42)
[2021-03-05 07:00] LABS: Abs Immature Grans 0.08 10^3/uL (0.0-0.06); Absolute Monocyte Count 1.61 10^3/uL (0.1-0.8); Basophils % 0.6; Eosinophils % 1.2; HCT 30.2 % (40.0-50.0); HGB 10.1 g/dL (13.5-17.5); Immature Grans % 0.5; Lymphocytes % 11.8; MCH 29.3 pg (27.0-33.0); MCHC 33.4 % (32.0-36.0); MCV 87.5 fL (80-95); MPV 10.7 fL (8.0-11.0); Neutrophils % 75.9; Nucleated RBC 0 %; Platelet Count 301 10^3/uL (130-400); RBC 3.45 10^6/uL (4.36-5.78); RDW 15.4 % (11.8-14.1); RDW-SD 49.3 fL; WBC 16.14 10^3/uL (4.4-10.8)
[2021-03-05 07:08] LABS: Absolute Eosinophil Count 0.19 10^3/uL (0.0-0.7); Absolute Neutrophil Count 12.25 10^3/uL (1.2-6.7)
[2021-03-05 07:15] LABS: Anion Gap 10.2 mmol/L (3-11); BUN 19 mg/dL (7-18); CO2 22.8 mmol/L (21.0-32.0); CREATININE 0.9 mg/dL (0.70-1.30); Calcium 8.3 mg/dL (8.5-10.1); Chloride 109 mmol/L (98-107); Glucose 125 mg/dL (74-106); Magnesium 1.9 mg/dL (1.8-2.4); PHOSPHORUS < 2.0 mg/dL (2.6-4.7); Potassium 3.6 mmol/L (3.5-5.1); Sodium 142 mmol/L (136-145)
[2021-03-05 07:19] VITALS: BP 165/75; PULSE 71; RESP 14; TEMP 37.1; O2SAT 95
[2021-03-05 07:31] LABS: INR 1.5 (0.9-1.1); Prothrombin Time 15.4 sec (9.3-11.0)
[2021-03-05 07:45] LABS: Diff Comment Agrees w/ Instrument
[2021-03-05 07:46] LABS: Poikilocytes 1+; Polychromasia Present
[2021-03-05] MEDS: Calcitriol 0.25 MCG CAP PO (08:28)
[2021-03-05] MEDS: Cholecalciferol (Vitamin D3) 1,000 UNIT TAB 1000 UNITS PO (08:28)
[2021-03-05] MEDS: Metoprolol CR 25 MG TABCR PO (08:28)
[2021-03-05] MEDS: Normal Saline Flush 10 ML SYR IVP (08:28)
[2021-03-05] MEDS: SITagliptin 100 MG TAB PO (08:28)
[2021-03-05] MEDS: Omeprazole 20 MG CAPCR 40 MG PO (08:28)
[2021-03-05] MEDS: Pantoprazole 40 MG VIAL IVP (08:29)
--- NOTE | 2021-03-05 09:27 | DSE_ITS ---
Date of service: 03/05/21 Time of Service: 09:27 DS: Diagnosis Discharge Diagnosis (1) Pneumonia: Status: Acute (2) Small bowel obstruction: Status: Acute (3) Atrial fibrillation with controlled ventricular rate: Status: Acute Discharge Plan Disposition Patient Disposition: HOME Condition: Good Discharge Details Reason For Visit: Small Bowel Obstruction Admit Date/Time: 03/02/21 08:39 Admit Provider: Alcon Blanco Attending Provider: Alcon Blanco Primary Care Provider: Lynnette Crabtree Hospital Course Hospital Course: This is a 76 yo male with a PMH of liposarcoma with L nephrectomy, Lung CA with resection of mass, HLD, DM2, COPD, pulmonary embolism on warfarin. He presented with abd mclain, N/V since the day prior to admission. He endorses having had 6 previous small bowel obstructions. His BP was 185/84 with a pulse in the low 100's. Afebrile. WBC count 17. Hgb 13.8. INR 2.5. CT abd/pelvis showed: Fluid- filled and dilated stomach and proximal small bowel with a possible transition point the level of the postsurgical changes in the left mid abdomen. A component of gastric and bowel obstruction should be considered. No free air. NG placed and gastric return was heme positive. Surgery consulted. With bowel rest and ultimately a bottle of magnesium citrate, his obstruction resolved. He tolerated clear liquids, then full liquids. His initial Hgb was 14.1; hemoconcentrated d/t N/V prior to admission. At time of discharge his Hgb was 10.1. No active bleeding noted. He will have a CBC checked in 5 days. He will begin Miralax daily. His WBC count was elevated on admission at 17.86. It increased to 22 then declined to 16.14 with Zosyn. CXR showed a left lower lobe infiltrate. He had no clinically symptoms associated with the pneumonia findings. He will complete a course of antibiotics with Augmentin 875 mg BID for 5 days. His PCP is in [place]. A follow up in 1-2 weeks recommended. Home Meds and New Rx's Prescriptions: New amoxicillin-pot clavulanate [Augmentin] 875-125 mg tablet 1 tab PO BID Qty: 10 RF: 0 polyethylene glycol 3350 [Miralax] 17 gram/dose powder 17 g PO DAILY Qty: 238 RF: 0 Continued metformin 500 mg Tablet 1,000 mg PO HS RF: 0 acetaminophen 325 mg Tablet 650 mg PO Q6H PRNRF: 0 atorvastatin 10 mg Tablet 10 mg PO HS RF: 0 omeprazole 40 mg Capsule,Delayed Release(Dr/Ec) 40 mg PO TID RF: 0 warfarin 5 mg Tablet 5 mg PO DIRECTED RF: 0 metoprolol succinate 25 mg Tablet Extended Release 24 Hr 25 mg PO DAILY RF: 0 calcitriol 0.25 mcg Capsule 0.25 mcg PO Q OTHER DAY RF: 0 Spiriva with HandiHaler 18 mcg Capsule, W/Inhalation Device 2 cap INHALATION DAILY RF: 0 trospium 20 mg Tablet 20 mg PO DAILY RF: 0 cholecalciferol (vitamin D3) [Vitamin D3] 1,000 unit Tablet 1,000 unit PO DAILY RF: 0 diazepam [Valium] 5 mg tablet 5 mg PO TID-QID PRN (Reason: muscle spasm) Qty: 20 RF: 0 Januvia 100 mg Tablet 100 mg PO DAILY RF: 0 Basaglar KwikPen U-100 Insulin 100 unit/mL (3 mL) Insulin Pen 20 unit SUBCUT HS RF: 0 Discharge Instructions Instructions: Bowel Obstruction (DC) Activity:: Activity as Tolerated Equipment/Supplies:: No Equipment Needed Diet:: Diabetic / Heart Healthy Discharge Orders Discharge Orders: Discharge Order (Routine); Ordered 03/05/21 Ordered By: Alcon Blanco DS: Summary Time Spent with Patient providing and/or coordinating discharge services: Greater than 30 minutes Status at Discharge Functional status at discharge: independent ambulation Overall status at discharge: patient is progressing back to baseline Mental Status: mental status grossly normal Speech and Movement: speech and movement normal Mood: congruent mood Affect: normal affect Exam Psych Mental Status: mental status grossly normal Speech and Movement: speech and movement normal Mood: congruent mood Affect: normal affect DS: Data Vitals/I&O Vitals and I&O: Vital Signs Temperature 37.1 C 03/05/21 07:19 Temperature Source Tympanic 03/05/21 07:19 Pulse 71 03/05/21 07:19 Pulse Rhythm Regular 03/05/21 08:25 Pulse 94 H 03/04/21 15:45 Respiratory Rate 14 03/05/21 07:19 Respiratory Effort Non-Labored 03/05/21 08:25 Respiratory Depth Normal 03/05/21 08:25 Respiratory Pattern Normal 03/05/21 08:25 Blood Pressure 165/75 H 03/05/21 07:19 Blood Pressure Mean 87 03/04/21 15:45 Blood Pressure Position Supine 03/04/21 16:00 Pulse Oximetry 95 03/05/21 07:19 Oxygen Delivery Method Room Air 03/05/21 07:19 Oxygen Flow Rate 0 03/05/21 07:19 Pain Level 0 03/05/21 07:19 Intake & Output 03/04/21 03/04/21 03/05/21 11:59 23:59 11:59 Intake Total 2164 / 2694 530 / 2694 150 / 150 Output Total 1175 / 2060 885 / 2060 Balance 989 / 634 -355 / 634 150 / 150 Weight 116.8 kg Intake: IV 2164 / 2214 50 / 2214 50 / 50 Oral 480 / 480 100 / 100 Output: Gastric Drainage 275 / 410 135 / 410 Right Nare 275 / 410 135 / 410 Urine 900 / 1150 250 / 1150 Stool 500 / 500 Other: Urine Color Yellow Yellow Yellow Urine Appearance Clear Clear Clear Urine Odor None Comment Love intact. contaminated with liquid stools. Stool Occult Blood Positive Positive Stool Size Large Moderate Small Stool Characteristics Soft Brown Liquid Formed Brown Black Voiding Methods Urinal Toilet Diaper Data Completed and Pending Labs on day of discharge: Labs from last 24 hours 03/05/21 03/05/21 03/05/21 06:40 06:40 06:40 WBC 16.14 H RBC 3.45 L Hgb 10.1 L Hct 30.2 L MCV 87.5 MCH 29.3 MCHC 33.4 RDW 15.4 H Plt Count 301 MPV 10.7 Immature Gran % 0.5 Neutrophils % 75.9 Lymphocytes % 11.8 Monocytes % 10.0 Eosinophils % 1.2 Basophils % 0.6 Nucleated RBC % 0 Absolute Neutrophils 12.25 H Absolute Lymphocytes 1.90 Absolute Monocytes 1.61 H Absolute Eosinophils 0.19 Absolute Basophils 0.10 RBC Morphology See below Polychromasia Present Poikilocytosis 1+ PT 15.4 H INR 1.5 H Sodium 142 Potassium 3.6 Chloride 109 H Carbon Dioxide 22.8 Anion Gap 10.2 BUN 19 H D Creatinine 0.9 Estimated GFR/1.73 m2 >= 60.00 Glucose 125 H Calcium 8.3 L Phosphorus < 2.0 L Magnesium 1.9 PFSH Social History Smoking/Tobacco Use Status: Former Tobacco Use Smoking risk assessment performed?: Yes Alcohol Intake: current Alcohol Intake frequency: a few times a month Drug use: Never Do you feel safe at home: Yes Do you feel safe in your relationship?: Yes
[2021-03-05] MEDS: Tiotropium Bromide-Respimat 10 PUFF INH 2 PUFF IH (09:55)
--- NOTE | 2021-03-05 15:41 | PDOC.CMDIS ---
- If Service Date Differs Date of service: 03/05/21 Time of Service: 15:41 LACE Index Scoring Tool - Questions: Length of Stay (in days): 3 Acuity (Admit via E.D.?): Yes E.D. Visits: 1 - Answers: Total Score: 7 Risk of Readmission: Low Risk Care Management Discharge Reason for Hospitalization: SBO, hematemesis, and hypomagnesemia. Discharge Plan: Ronald will return home with no additional services at this time. His will drive him home via private vehicle. He will follow up with his PCP and discharge plan of care. Patient/Family Education Needs: Review discharge instructions regarding activity levels and medications, discussion of self care needs including ask me three.
--- NOTE | 2021-03-10 09:47 | PT.INDS ---
Date of service: 03/10/21 Time of Service: 09:47 PT Notes Visit Reasons: Small Bowel Obstruction Treatment Dates: 03/03/2021-03/04/21 Referring Doctor: Alcon Blanco MD PT Orders: PT CONSULT: Eval/treat Precautions: Fall. Standard. Activity as tolerated. On full liquid diet. THIS DOCUMENT SERVES A SUMMARY OF CARE. NO SERVICES WERE PROVIDED ON THIS DATE. Patient Profile/Admitting Diagnosis: Ronald is a 76-year-old male with past medical history significant for kidney carcinoma status post nephrectomy who presented to the ED on 03/02/2021 due to abdominal pain, nausea, and vomiting. Patient is diagnosed with small bowel obstruction, hypomagnesemia, and pneumonia. He improved medically, and was able to return home 03/05/21. PMHX: Kidney carcinoma Social History/Home Situation: Lives with in a private home with 3-4 steps to enter with 1 rail. They have another 16 steps that lead to the turpin with rails on both sides. At baseline, patient is independent with all indoor ambulation without any assistive device but uses a single-point cane for long distances. Equipment Owned/DME: Single-point cane Subjective: None obtained, as patient was discharged home prior to this documentation. Objective: ROM: Right Upper Extremity: Shoulder Flexion WFL. Shoulder abduction WFL. Shoulder ER/IR WFL. Elbow flexion WFL. Forearm pronation/supination WFL. Wrist flexion WFL. Opening and closing of hand WFL. Left Upper Extremity: Shoulder Flexion WFL. Shoulder abduction WFL. Shoulder ER/IR WFL. Elbow flexion WFL. Forearm pronation/supination WFL. Wrist flexion WFL. Opening and closing of hand WFL. Right Lower Extremity: Hip flexion WFL. Hip abduction WFL. Hip ER/IR WFL. Knee flexion WFL. Knee extension. Ankle dorsiflexion/eversion WFL. Ankle plantarflexion/inversion WFL. Left Lower Extremity: Hip flexion WFL. Hip abduction WFL. Hip ER/IR WFL. Knee flexion WFL. Knee extension. Ankle dorsiflexion WFL. Ankle plantarflexion WFL. Strength: Right Upper Extremity: Shoulder flexors 4/5. Shoulder abductors 4/5. Shoulder ER 4/5. Shoulder IR 4/5. Forearm pronators 4/5. Forearm supinators 4/5. Elbow flexors 4/5. Elbow extensors 4/5. Trimmer And Reinforcer strong. Left Upper Extremity: Shoulder flexors 4/5. Shoulder abductors 4/5. Shoulder ER 4/5. Shoulder IR 4/5. Forearm pronators 4/5. Forearm supinators 4/5. Elbow flexors 4/5. Elbow extensors 4/5. Trimmer And Reinforcer strong. Right Lower Extremity: Hip flexors 4-/5. Hip abductors 4-/5. Hip external rotators 4-/5. Hip internal rotators 4-/5. Knee flexors 4-/5. Knee extensors 4-/5. Ankle dorsiflexors/evertors 4-/5. Ankle plantarflexors/invertors 4-/5. Left Lower Extremity: Hip flexors 4-/5. Hip abductors 4-/5. Hip external rotators 4-/5. Hip internal rotators 4-/5. Knee flexors 4-/5. Knee extensors 4-/5. Ankle dorsiflexors/evertors 4-/5. Ankle plantarflexors/invertors 4-/5. Bed Mobility/Transfers: Rolling: independent Supine to sit: independent Sit to supine : independent Sit to stand : supervision Stand to sit : supervision Gait: Patient demonstrated ability to ambulate up to 400' with FWW, SBA. Balance: Static Sitting: Normal Dynamic Sitting: Normal Static Standing: Good Dynamic Standing: Fair Assessment: Patient was seen for 3 PT sessions over the course of 2 days. He demonstrated improvements in mobility and safety, and was deemed appropriate for transition back home with FWW. Goals: Goals X1 week 1. Supine-Sit independent (MET) 2. Sit-Supine independent (MET) 3. Sit-Stand independent (NOT MET, WITH PATIENT CONTINUING TO REQUIRE SUPERVISION) 4. Stand-Sit independent(NOT MET, WITH PATIENT CONTINUING TO REQUIRE SUPERVISION) 5. Bed-Chair independent(NOT MET, WITH PATIENT CONTINUING TO REQUIRE SUPERVISION) 6. Chair-Bed independent(NOT MET, WITH PATIENT CONTINUING TO REQUIRE SUPERVISION) 7. Independent gait on level surface with use of no assistive device for at least 500 feet without report of pain nor dyspnea (NOT MET, ALTHOUGH GOAL MODIFIED TO USE OF FWW, WHICH WAS ISSUED PRIOR TO D/C) 8. Independent stair negotiation while holding onto 1 rail for at least 16 steps without report of pain nor dyspnea (NOT MET) 9. Independent with home exercise program (MET) 10. Good static and dynamic standing balance/tolerance (MET) Plan of Care/Treatment Plan: D/C from PT in acute care setting. DISCHARGE RECOMMENDATIONS: Home without additional services TREATMENT CODE/TIME: No PT intervention provided on this date . Mirna Mackey, PT, DPT [facility] [place], [place]
== END 2021-03-05 12:10 | disposition home or self-care (01) | DRG 388 ==
LOC: ER 09:04 → ICU 11:19 → MS 03-04 18:39
PROVIDERS: Emergency Medicine; Surgery; Admitting Provider Family Medicine; Emergency Provider Student in an Organized Health Care Education/Training Program; PCP Nurse Practitioner Family; Visit Provider Family Medicine
DX: K91.30 Postprocedural intestinal obstruction, unspecified as to partial versus complete (principal); J18.9 Pneumonia, unspecified organism; K92.0 Hematemesis; K56.609 Unspecified intestinal obstruction, unspecified as to partial versus complete obstruction; E83.42 Hypomagnesemia; Z85.528 Personal history of other malignant neoplasm of kidney; Z85.118 Personal history of other malignant neoplasm of bronchus and lung; Z90.5 Acquired absence of kidney; E78.5 Hyperlipidemia, unspecified; E11.9 Type 2 diabetes mellitus without complications; J44.9 Chronic obstructive pulmonary disease, unspecified; Z79.01 Long term (current) use of anticoagulants; Z87.891 Personal history of nicotine dependence; Z86.711 Personal history of pulmonary embolism; Z20.822 Contact with and (suspected) exposure to COVID-19; R59.0 Localized enlarged lymph nodes; I48.91 Unspecified atrial fibrillation
CPT/HCPCS: 36415; 80048; 80053; 83690; 86850; 86900; 86901; 87635; 94640; 96361; 96365; 96366; 96375; 96376; 97110; 97162; 97530; 99222; 99231; 99232; 99291; 71046; 74018; 74177; 76705; 81003; 83735; 84100; 85025; 85610; 85730; 94667; 99223; 99233; 99239; J2405; J2543; J3490

== ENCOUNTER 2021-03-10 02:24 | Outpatient (CLI) | payer MEDICARE, BC, SELFPAY ==
[2021-03-10 13:18] LABS: INR 1.7 (0.9-1.1)
== END 2021-03-10 02:25 | disposition home or self-care (01) ==
LOC: LBO 02:24
PROVIDERS: PCP Nurse Practitioner Family; Visit Provider Internal Medicine
DX: I48.0 Paroxysmal atrial fibrillation (principal); Z79.01 Long term (current) use of anticoagulants
CPT/HCPCS: 36415; 85610

== ENCOUNTER 2021-03-12 17:52 | Outpatient (REF) | payer MEDICARE, BC, SELFPAY ==
[2021-03-12 19:32] LABS: HCT 35.2 % (40.0-50.0); HGB 11.7 g/dL (13.5-17.5); MCHC 33.2 % (32.0-36.0); MCV 87.1 fL (80-95); MPV 10.6 fL (8.0-11.0); Platelet Count 581 10^3/uL (130-400); RBC 4.04 10^6/uL (4.36-5.78); RDW 15.4 % (11.8-14.1); RDW-SD 49.1 fL; WBC 12.17 10^3/uL (4.4-10.8)
== END 2021-03-12 17:53 | disposition home or self-care (01) ==
LOC: NCHCN 17:52
PROVIDERS: PCP Nurse Practitioner Family; Visit Provider Nurse Practitioner Family
DX: J18.9 Pneumonia, unspecified organism (principal)
CPT/HCPCS: 85027

== ENCOUNTER 2021-04-08 05:18 | Outpatient (CLI) | payer MEDICARE, BC, SELFPAY ==
--- NOTE | 2021-04-08 | DI.CT_ITS ---
Exam(s) CT ABDOMEN PELVIS W EXAM: CT ABDOMEN PELVIS W CLINICAL HISTORY: LT GROIN PAIN, R10.32,H/O LIPOSARCOMA,NEW PROSTATE CA,? HEMATOMA OR METS. TECHNIQUE: Imaging Protocol: Axial computed tomography images with coronal and sagittal reformatted images were created and reviewed CONTRAST MATERIAL: Intravenous: Omnipaque 85cc Oral: Yes COMPARISON: CT CT ABDOMEN PELVIS W from 03/02/2021 FINDINGS: VISUALIZED LUNG BASES: Unchanged pleural thickening and increased markings in left lung base noted. No true pleural effusions. Small nodular density medial right lung base posterior basal segment righ t lower lobe is unchanged.. ABDOMEN: There is no ascites. LIVER: Previously described multiple cysts throughout the liver are again noted, relatively stable. No new solid hepatic lesions identified. GALLBLADDER/BILIARY: No obvious gallbladder pathology. CBD is not dilated. PANCREAS: No evidence of pancreatic mass nor dilatation of the pancreatic duct. SPLEEN: Spleen again noted to be surgically absent. ADRENALS: There are no significant adrenal masses. KIDNEYS:Left kidney is again noted to be absent-prior nephrectomy. Immediately posterior to the gastric fundus in the left renal fossa region there is a lobulated solid nodule noted which appears slightly larger than previous, presently measuring 2.5 by 1.1 cm. This p reviously measured 2.1 by 1.1 cm. Cysts in lower pole of the right kidney as well as small calculus again noted. Exophytic cyst off th e medial lower pole of the right kidney is also noted, unchanged. No new solid renal masses. No hyd ronephrosis. No hydroureter. No abnormality at the right ureterovesical junction nor in the urinary bladder.. ABDOMINAL AORTA: Abdominal aorta is not enlarged. LYMPH NODES:There is no retroperitineal nor paraaortic adenopathy. ABDOMINAL WALL: No evidence of significant anterior abdominal wall hernia. GI: There is evidence of subtotal colectomy again noted. There is improved appearance of the left-si ded anastomosis. Previously present obstruction at this level is no longer seen. There are, however , a few fecalized small bowel loops in left side of the abdomen. The remaining colon distal to the a nastomosis is no longer collapsed. Oral contrast has not yet progressed into the colon but the small bowel loops are not significantly dilated this may be just related to the time of image acquisition. PELVIS: GI: No evidence of significant sigmoid diverticular disease. Presacral rectum appears unremarkable. LYMPH NODES: There is no intrapelvic nor inguinal adenopathy. REPRODUCTIVE: Prostate gland size is upper normal. Seminal vesicles unremarkable. URINARY BLADDER: No calculi nor obvious masses evident OSSEOUS: No significant osseous lesions. IMPRESSION: 1. Compared to the prior CT scan of 03/02/2021 there is again noted evidence of previous left nephrec kathy and subtotal colectomy with left-sided anastomosis. 2. Previously present bowel obstruction has significantly improved. There are a few fecalized distal small bowel loops in the left side of the abdomen but without high-grade obstruction and there is no ascites. In addition, the colon distal to the anastomosis is no longer collapsed. There is no free air nor abscess. 3. In the left renal fossa region there is a lobulated partially calcified solid nodule noted which m easures 25 x 11 millimeters, slightly larger than previous. This may be significant finding given th at there has been ipsilateral nephrectomy. This finding is posterior to the gastric fundus but does not have the appearance of a typical gastric diverticulum at this level. Cannot exclude possibility of recurrence. Comparison to any prior CT scans from outside institutions prior to 03/02/2021 is rec ommended. 4. No new osseous lesions identified RADIATION DOSE DELIVERED: 1,645.59mGy.cm Total DLP DATA REPOSITORY: All CT scans at this facility are submitted to the National Radiology Data Registry (NRDR) Dose Index Registry (DIR) with the [employer] (ACR). RADIATION OPTIMIZATION: All CT scans at this facility use at least one of these dose optimization te chniques: automated exposure control; mA and/or kV adjustment per patient size (includes targeted exa ms where dose is matched to clinical indication); or iterative reconstruction.
[2021-04-08] MEDS: Omnipaque 350 MG/ML 50 ML BTL PO (13:38)
[2021-04-08] MEDS: Breeza Beverage 473 ML BTL PO ×2 (13:39)
[2021-04-08] MEDS: Omnipaque 350 MG/ML 100 ML BTL IV (15:44)
== END 2021-04-08 05:38 ==
PROVIDERS: PCP Nurse Practitioner Family; Visit Provider Family Medicine
DX: C61 Malignant neoplasm of prostate (principal); K63.89 Other specified diseases of intestine; N28.89 Other specified disorders of kidney and ureter; Z85.831 Personal history of malignant neoplasm of soft tissue; Z90.5 Acquired absence of kidney; Z90.49 Acquired absence of other specified parts of digestive tract
CPT/HCPCS: 36415; 74177; 82565; J3490; Q9967

== ENCOUNTER 2021-05-12 02:56 | Outpatient (CLI) | payer MEDICARE, BC, SELFPAY ==
[2021-05-12 13:12] LABS: INR 2.8 (0.9-1.1); Prothrombin Time 27.7 sec (9.3-11.0)
== END 2021-05-12 02:57 | disposition home or self-care (01) ==
LOC: LBO 02:56
PROVIDERS: PCP Nurse Practitioner Family; Visit Provider Internal Medicine
DX: I48.0 Paroxysmal atrial fibrillation (principal); Z79.01 Long term (current) use of anticoagulants
CPT/HCPCS: 36415; 85610

== ENCOUNTER 2021-06-21 04:05 | Outpatient (CLI) | payer MEDICARE, BC, SELFPAY ==
[2021-06-21 14:32] LABS: INR 3.9 (0.9-1.1)
== END 2021-06-21 04:06 | disposition home or self-care (01) ==
LOC: LBO 04:05
PROVIDERS: PCP Nurse Practitioner Family; Visit Provider Internal Medicine
DX: I48.0 Paroxysmal atrial fibrillation (principal); Z79.01 Long term (current) use of anticoagulants
CPT/HCPCS: 36415; 85610

== ENCOUNTER 2021-06-23 02:58 | Outpatient (CLI) | payer MEDICARE, BC, SELFPAY ==
[2021-06-23 14:58] LABS: INR 4.1 (0.9-1.1)
== END 2021-06-23 02:59 | disposition home or self-care (01) ==
LOC: LBO 02:58
PROVIDERS: PCP Nurse Practitioner Family; Visit Provider Internal Medicine
DX: I48.0 Paroxysmal atrial fibrillation (principal); Z79.01 Long term (current) use of anticoagulants
CPT/HCPCS: 36415; 85610

== ENCOUNTER 2021-06-24 11:00 | Outpatient (CLI) | payer MEDICARE, BC, SELFPAY ==
[2021-06-24 12:59] LABS: INR 2.7 (0.9-1.1); Prothrombin Time 26.3 sec (9.3-11.0)
== END 2021-06-24 11:01 | disposition home or self-care (01) ==
PROVIDERS: PCP Nurse Practitioner Family; Visit Provider Internal Medicine
DX: Z79.01 Long term (current) use of anticoagulants (principal); I48.0 Paroxysmal atrial fibrillation
CPT/HCPCS: 36415; 85610

== ENCOUNTER 2021-07-07 03:45 | Outpatient (CLI) | payer MEDICARE, BC, SELFPAY ==
[2021-07-07 14:25] LABS: INR 2.2 (0.9-1.1); Prothrombin Time 21.4 sec (9.3-11.0)
== END 2021-07-07 03:46 | disposition home or self-care (01) ==
LOC: LBO 03:45
PROVIDERS: PCP Nurse Practitioner Family; Visit Provider Internal Medicine
DX: Z79.01 Long term (current) use of anticoagulants (principal); I48.0 Paroxysmal atrial fibrillation
CPT/HCPCS: 36415; 85610

== ENCOUNTER 2022-04-20 03:06 | Outpatient (CLI) | payer MEDICARE, BC, SELFPAY ==
[2022-04-20 12:28] LABS: Prothrombin Time 43.9 sec (9.3-11.0)
[2022-04-20 12:33] LABS: INR 4.8 (0.9-1.1)
== END 2022-04-20 03:07 | disposition home or self-care (01) ==
LOC: LBO 03:07
PROVIDERS: PCP Nurse Practitioner Family; Visit Provider Internal Medicine
DX: I48.0 Paroxysmal atrial fibrillation (principal); Z79.01 Long term (current) use of anticoagulants
CPT/HCPCS: 36415; 85610

== ENCOUNTER 2022-04-26 03:37 | Outpatient (CLI) | payer MEDICARE, BC, SELFPAY ==
[2022-04-26 13:22] LABS: INR 2.6 (0.9-1.1); Prothrombin Time 24.4 sec (9.3-11.0)
== END 2022-04-26 03:38 | disposition home or self-care (01) ==
LOC: LBO 03:37
PROVIDERS: PCP Nurse Practitioner Family; Visit Provider Internal Medicine
DX: I48.0 Paroxysmal atrial fibrillation (principal); Z79.01 Long term (current) use of anticoagulants
CPT/HCPCS: 36415; 85610

== ENCOUNTER 2022-05-04 02:40 | Outpatient (CLI) | payer MEDICARE, BC, SELFPAY ==
[2022-05-04 12:36] LABS: Prothrombin Time 56.8 sec (9.3-11.0)
[2022-05-04 12:43] LABS: INR 6.3 (0.9-1.1)
== END 2022-05-04 02:41 | disposition home or self-care (01) ==
PROVIDERS: PCP Nurse Practitioner Family; Visit Provider Internal Medicine
DX: I48.0 Paroxysmal atrial fibrillation (principal); Z79.01 Long term (current) use of anticoagulants
CPT/HCPCS: 36415; 85610

== ENCOUNTER 2022-05-06 01:49 | Outpatient (CLI) | payer MEDICARE, BC, SELFPAY ==
[2022-05-06 09:34] LABS: Prothrombin Time 37.7 sec (9.3-11.0)
[2022-05-06 09:39] LABS: INR 4.1 (0.9-1.1)
== END 2022-05-06 01:50 | disposition home or self-care (01) ==
LOC: LBO 01:49
PROVIDERS: PCP Nurse Practitioner Family; Visit Provider Internal Medicine
DX: Z79.01 Long term (current) use of anticoagulants (principal); I48.0 Paroxysmal atrial fibrillation
CPT/HCPCS: 36415; 85610

== ENCOUNTER 2022-05-12 03:08 | Outpatient (CLI) | payer MEDICARE, BC, SELFPAY ==
[2022-05-12 10:17] LABS: INR 1.6 (0.9-1.1); Prothrombin Time 15.9 sec (9.3-11.0)
== END 2022-05-12 03:09 | disposition home or self-care (01) ==
LOC: LBO 03:08
PROVIDERS: PCP Nurse Practitioner Family; Visit Provider Internal Medicine
DX: Z79.01 Long term (current) use of anticoagulants (principal); I48.0 Paroxysmal atrial fibrillation
CPT/HCPCS: 36415; 85610

== ENCOUNTER 2022-05-19 05:13 | Outpatient (CLI) | payer MEDICARE, BC, SELFPAY ==
[2022-05-19 11:01] LABS: INR 2.2 (0.9-1.1); Prothrombin Time 21.3 sec (9.3-11.0)
== END 2022-05-19 05:14 | disposition home or self-care (01) ==
LOC: LBO 05:14
PROVIDERS: PCP Nurse Practitioner Family; Visit Provider Internal Medicine
DX: Z79.01 Long term (current) use of anticoagulants (principal); I48.0 Paroxysmal atrial fibrillation
CPT/HCPCS: 36415; 85610

== ENCOUNTER 2022-06-03 01:54 | Outpatient (CLI) | payer MEDICARE, BC, SELFPAY ==
[2022-06-03 13:28] LABS: Prothrombin Time 39.2 sec (9.3-11.0)
[2022-06-03 13:38] LABS: INR 4.3 (0.9-1.1)
== END 2022-06-03 01:55 | disposition home or self-care (01) ==
LOC: LBO 01:54
PROVIDERS: PCP Nurse Practitioner Family; Visit Provider Internal Medicine
DX: Z79.01 Long term (current) use of anticoagulants (principal); I48.0 Paroxysmal atrial fibrillation
CPT/HCPCS: 36415; 85610

== ENCOUNTER 2022-06-07 01:31 | Outpatient (CLI) | payer MEDICARE, BC, SELFPAY ==
[2022-06-07 15:38] LABS: INR 3.1 (0.9-1.1); Prothrombin Time 29.1 sec (9.3-11.0)
== END 2022-06-07 01:32 | disposition home or self-care (01) ==
LOC: LBO 01:31
PROVIDERS: PCP Nurse Practitioner Family; Visit Provider Internal Medicine
DX: Z79.01 Long term (current) use of anticoagulants; I48.0 Paroxysmal atrial fibrillation
CPT/HCPCS: 36415; 85610

== ENCOUNTER 2022-06-20 04:42 | Outpatient (CLI) | payer MEDICARE, BC, SELFPAY ==
[2022-06-20 16:21] LABS: INR 2.3 (0.9-1.1)
== END 2022-06-20 04:43 | disposition home or self-care (01) ==
PROVIDERS: PCP Nurse Practitioner Family; Visit Provider Internal Medicine
DX: I48.0 Paroxysmal atrial fibrillation (principal); Z79.01 Long term (current) use of anticoagulants
CPT/HCPCS: 36415; 85610

== ENCOUNTER 2023-05-25 10:25 | Emergency (ER) | payer MEDICARE, BC, SELFPAY ==
[2023-05-25] VITALS (24 sets, daily range): BP systolic 131–159; BP diastolic 61–90; PULSE 60–99; RESP 18; TEMP 37.4; O2SAT 95–100
--- NOTE | 2023-05-25 10:45 | DI.CT_ITS ---
Exam(s) CT ABDOMEN PELVIS W EXAM: CT ABDOMEN PELVIS W CLINICAL HISTORY: abdominal pain LUQ, loose stool, prior sbos remote. TECHNIQUE: Imaging Protocol: Axial computed tomography images with coronal and sagittal reformatted images were created and reviewed CONTRAST MATERIAL: Intravenous: Omnipaque-350 100cc Oral: None COMPARISON: CT CT ABDOMEN PELVIS W from 04/08/2021 FINDINGS: VISUALIZED LUNG BASES: No new nodules nor pleural effusions evident. Some pleural thickening on the left side is unchanged. ABDOMEN: There is no ascites. LIVER: Multiple benign-appearing cysts are again noted throughout the liver. Involving both lobes. No new solid renal masses. No dilated intrahepatic ducts. No dilated intrahepatic ducts. GALLBLADDER/BILIARY: No obvious gallbladder pathology. CBD is not dilated. PANCREAS: No evidence of pancreatic mass nor dilatation of the pancreatic duct. SPLEEN: Spleen again noted be surgically absent as is the left kidney. Previously described peanut s haped density behind the gastric fundus is unchanged and probably diverticulum of the fundus. ADRENALS: There are no significant adrenal masses. KIDNEYS:Left kidney surgically absent. There is a cyst in the inferior pole of the right kidney whic h measures 5 x 4 cm. There are no solid lesions in the right kidney. Multiple small radiopaque calc julius are seen in the lower pole calices, more so than previous. Small exophytic cyst off the inner as pect of the right kidney measuring 1 0.5 x 1.4 cm no solid renal masses. No hydronephrosis. Right u reter size is upper normal.. ABDOMINAL AORTA: Calcified but not enlarged. Iliac arteries also calcified but not enlarged. LYMPH NODES:There is no retroperitoneal nor paraaortic adenopathy. ABDOMINAL WALL: No evidence of significant anterior abdominal wall nor inguinal hernia. GI: Again noted is evidence of previous partial colectomy. Left-sided anastomosis again noted. Some fecalized bowel loops are noted in this region but there does not appear to be a high-grade bowel ob struction. There is no high-grade small-bowel obstruction. No free air. No abscess. PELVIS: GI: Appendix surgically absent from partial colectomy.No evidence of sigmoid diverticulitis. LYMPH NODES: There is no intrapelvic nor inguinal adenopathy. REPRODUCTIVE: Prostate small and clips in this region. URINARY BLADDER: No calculi nor obvious masses evident OSSEOUS: No fractures and no significant osseous lesions. Left hip prosthesis noted. IMPRESSION: 1. Compared to the prior CT scan of March 2021 there is again noted evidence of previous left nephrect nahum, splenectomy and subtotal colectomy with left-sided anastomosis. 2. Few slightly dilated and fecalized small bowel loops in left side of the abdomen but without obvio us high-grade obstruction and there is no ascites. No free air. No abscess. If clinically indicate d repeat scanning after oral contrast administration can be performed 3. Other findings as above RADIATION DOSE DELIVERED: 1,408.89mGy.cm Total DLP DATA REPOSITORY: All CT scans at this facility are submitted to the National Radiology Data Registry (NRDR) Dose Index Registry (DIR) with the [employer] (ACR). RADIATION OPTIMIZATION: All CT scans at this facility use at least one of these dose optimization te chniques: automated exposure control; mA and/or kV adjustment per patient size (includes targeted exa ms where dose is matched to clinical indication); or iterative reconstruction.
[2023-05-25 11:15] LABS: Abs Immature Grans 0.04 10^3/uL (0.0-0.06); Absolute Eosinophil Count 0.21 10^3/uL (0.0-0.7); Basophils % 0.8; Eosinophils % 1.7; HGB 12.6 g/dL (13.5-17.5); Immature Grans % 0.3; Lymphocytes % 12.9; MCH 28.1 pg (27.0-33.0); MCHC 33.2 % (32.0-36.0); MCV 85 fL (80-95); MPV 10.1 fL (8.0-11.0); Monocytes % 8.3; Platelet Count 437 10^3/uL (130-400); RBC 4.49 10^6/uL (4.36-5.78); RDW 15.3 % (11.8-14.1)
[2023-05-25 11:16] LABS: Absolute Lymphocyte Count 1.63 10^3/uL (1.2-3.4); Absolute Monocyte Count 1.05 10^3/uL (0.1-0.8); Absolute Neutrophil Count 9.58 10^3/uL (1.2-6.7)
[2023-05-25] MEDS: Normal Saline 1,000 ML 1000 ML IV (11:19)
--- NOTE | 2023-05-25 11:19 | ED.GENADUL_ITS ---
Discharge Plan Disposition Patient Disposition: Home Condition: Stable Discharge Details Clinical Impression: Abdominal pain, Acute UTI, Partial small bowel obstruction Primary Care Provider: ALEJANDRA SAMANO ED Provider: Pierce Vela Home Meds and New Rx's Prescriptions: New cefuroxime axetil 500 mg tablet 500 mg PO BID Qty: 18 0RF Continued tamsulosin 0.4 mg capsule 0.4 mg PO DAILY Qty: 30 2RF metformin 500 mg Tablet 1,000 mg PO HS acetaminophen 325 mg Tablet 650 mg PO Q6H PRN atorvastatin 10 mg Tablet 10 mg PO HS omeprazole 40 mg Capsule,Delayed Release(Dr/Ec) 40 mg PO TID metoprolol succinate 25 mg Tablet Extended Release 24 Hr 25 mg PO DAILY insulin glargine [Basaglar KwikPen U-100 Insulin] 100 unit/mL (3 mL) Insulin Pen 20 unit SUBCUT HS montelukast 10 mg tablet 10 mg PO DAILY Eliquis 5 mg tablet 5 mg PO DAILY Trelegy Ellipta 100-62.5-25 mcg blister with device 100 ea INHALATION DAILY Ozempic 0.25 mg or 0.5 mg (2 mg/3 mL) pen injector 2.5 mg SUBCUT QWEEK Patient Comments: 0.5 MG SUBCUTANEOUS ONCE A WEEK 84 DAYS Discontinued bicalutamide 50 mg tablet 50 mg PO DAILY Qty: 30 0RF Patient Comments: not taking Paxlovid 300 mg (150 mg x 2)-100 mg tablet See Rx Instructions PO PER PKG DIR Qty: 30 0RF Patient Comments: not taking Rx Instructions: PO PER PKG DIR warfarin 5 mg Tablet 5 mg PO DIRECTED Patient Comments: not taking calcitriol 0.25 mcg Capsule 0.25 mcg PO Q OTHER DAY Patient Comments: not taking Spiriva with HandiHaler 18 mcg Capsule, W/Inhalation Device 2 cap INHALATION DAILY Patient Comments: not taking trospium 20 mg Tablet 20 mg PO DAILY Patient Comments: not taking cholecalciferol (vitamin D3) [Vitamin D3] 1,000 unit Tablet 1,000 unit PO DAILY Patient Comments: not taking diazepam [Valium] 5 mg tablet 5 mg PO TID-QID PRN (Reason: muscle spasm) Qty: 20 0RF Patient Comments: not taking Januvia 100 mg Tablet 100 mg PO DAILY Patient Comments: not taking amoxicillin-pot clavulanate [Augmentin] 875-125 mg tablet 1 tab PO BID Qty: 10 0RF Patient Comments: not taking polyethylene glycol 3350 [Miralax] 17 gram/dose powder 17 g PO DAILY Qty: 238 0RF Patient Comments: not taking Discharge Instructions Instructions: Urinary Tract Infection in Men (ED), Bowel Obstruction (ED) Additional Instructions: Please maintain bowel rest today and tomorrow. Maintain a clear liquid diet. Tomorrow evening you may start to advance your diet to bland soft foods. Please take antibiotic as prescribed. Your next dose should be late this evening. Be sure to complete the full course as prescribed. Please contact your primary care physician to arrange follow-up. You should be seen for reassessment early next week. Return to the ER immediately for any worsening or new concerning symptoms. 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 Patient is tender in his left upper abdomen with tympany. No peritoneal findings. Plan to obtain CT of the abdomen pelvis to assess for acute surgical pathology including bowel obstruction. Patient also with some pink discoloration to his urine recently. No dysuria. -- The abdomen pelvis was interpreted by radiology: Few slightly dilated and fecalized small bowel loops in left side of the abdomen but without obvious high-grade obstruction Labs reviewed and leukocytosis noted. Patient has elevated lactate. Urinalysis is concerning for urinary tract infection. Plan to give IV fluid and initiate antibiotics with ceftriaxone IV. 1522 --patient received IV fluid bolus 500 mL. Repeat lactate is improving. Patient was given oral fluid and has been tolerating well. He is hemodynamically stable. Plan to continue Keflex. Plan for bowel rest today and tomorrow. We will continue oral antibiotics and have him follow-up with PCP. Patient should have timely follow-up early next week. Disposition decision was made weighing the risks and benefits of hospitalization versus outpatient treatment, the risk for further decompensation, and the patient's wishes. The patient was stable and requested discharge. Prior to discharge, my usual and customary return precautions were reviewed with the patient - this included follow-up instructions and reason to return to the emergency department if condition worsens, does not improve as expected, or other new concerns arise. Imaging Data Radiologic Study: Imaging: CT Scan Radiologist's impression: FINDINGS: VISUALIZED LUNG BASES: No new nodules nor pleural effusions evident.? Some pleural thickening on the left side is unchanged. ABDOMEN: There is no ascites. LIVER: Multiple benign-appearing cysts are again noted throughout the liver.? Involving both lobes.? No new solid renal masses.? No dilated intrahepatic ducts.? No dilated intrahepatic ducts. GALLBLADDER/BILIARY: No obvious gallbladder pathology.? CBD is not dilated. PANCREAS: No evidence of pancreatic mass nor dilatation of the pancreatic duct.? 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 Previously described peanut shaped density behind the gastric fundus is unchanged and probably diverticulum of the fundus. ADRENALS: There are no significant adrenal masses. KIDNEYS:Left kidney surgically absent.? There is a cyst in the inferior pole of the right kidney which measures 5 x 4 cm.? There are no solid lesions in the right kidney.? Multiple small radiopaque calculi are seen in the lower pole calices, more so than previous.? Small exophytic cyst off the inner aspect of the right kidney measuring 1 0.5 x 1.4 cm no solid renal masses.? No hydronephrosis.? Right ureter size is upper normal.. ABDOMINAL AORTA: Calcified but not enlarged.? Iliac arteries also calcified but not enlarged. LYMPH NODES:There is no retroperitoneal nor paraaortic adenopathy. ABDOMINAL WALL: No evidence of significant anterior abdominal wall nor inguinal hernia. GI: Again noted is evidence of previous partial colectomy.? Left-sided anastomosis again noted.? Some fecalized bowel loops are noted in this region but there does not appear to be a high-grade bowel obstruction.? There is no high-grade small-bowel obstruction.? No free air.? No abscess. PELVIS:? GI: Appendix surgically absent from partial colectomy.No evidence of sigmoid diverticulitis. LYMPH NODES: There is no intrapelvic nor inguinal adenopathy. REPRODUCTIVE: Prostate small and clips in this region. URINARY BLADDER: No calculi nor obvious masses evident OSSEOUS: No fractures and no significant osseous lesions. Left hip prosthesis noted. IMPRESSION: 1. Compared to the prior CT scan of March 2021 there is again noted evidence of previous left nephrectomy, splenectomy and subtotal colectomy with left-sided anastomosis. 2. Few slightly dilated and fecalized small bowel loops in left side of the abdomen but without obvious high-grade obstruction and there is no ascites.? No free air.? No abscess.? If clinically indicated repeat scanning after oral contrast administration can be performed 3. Other findings as above Lab Data Lab results reviewed: Yes I reviewed the patient's lab results. Labs: 05/25/23 13:40 Urine - Reflex from Ua Urine Culture - Pending Laboratory Tests Range/Units 05/25/23 05/25/23 05/25/23 11:05 11:05 11:05 WBC (4.4-10.8) 10^3/uL RBC (4.36-5.78) 10^6/uL Hgb (13.5-17.5) g/dL Hct (40.0-50.0) % MCV (80-95) fL MCH (27.0-33.0) pg MCHC (32.0-36.0) % RDW (11.8-14.1) % Plt Count (130-400) 10^3/uL MPV (8.0-11.0) fL Immature Gran % Neutrophils % Lymphocytes % Monocytes % Eosinophils % Basophils % Nucleated RBC % (0.0-0.3) % Absolute Neutrophils (1.2-6.7) 10^3/uL Absolute Lymphocytes (1.2-3.4) 10^3/uL Absolute Monocytes (0.1-0.8) 10^3/uL Absolute Eosinophils (0.0-0.7) 10^3/uL Absolute Basophils (0.0-0.2) 10^3/uL VBG Lactate (0.6-1.4) mmol/L 2.0 H Sodium (136-145) mmol/L 137 Potassium (3.5-5.1) mmol/L 4.4 Chloride (98-107) mmol/L 102 Carbon Dioxide (21.0-32.0) mmol/L 23.4 Anion Gap (3-11) mmol/L 11.6 H BUN (7-18) mg/dL 21 H Creatinine (0.70-1.30) mg/dL 1.1 Est GFR (CKD-EPI 2020) (mL/min/1.73m2) 68.29 Glucose (74-106) mg/dL 233 H Calcium (8.5-10.1) mg/dL 10.7 H Total Bilirubin (0.2-1.0) mg/dL 0.5 AST (15-37) U/L 13 L ALT (16-63) U/L 19 Alkaline Phosphatase (46-116) U/L 167 H Total Protein (6.4-8.2) g/dL 7.5 Albumin (3.4-5.0) g/dL 3.0 L Lipase Cancelled 33 Urine Color (Yellow) Urine Clarity (Clear) Urine pH (5-8) Ur Specific [place] (1.005-1.025) Urine Protein (Negative) mg/dL Urine Ketones (Negative) mg/dL Urine Blood (Negative) Urine Nitrite (Negative) Urine Bilirubin (Negative) Urine Urobilinogen (Up to 0.2) mg/dL Ur Leukocyte Esterase (Negative) Urine RBC (0-2) HPF Urine WBC (0-5) HPF Ur Epithelial Cells (Negative) HPF Urine Crystals (Negative) HPF Urine Bacteria (Negative) HPF Urine Casts (Negative) LPF Urine Mucus (Negative) Ur Culture Indicated? Urine Glucose (Negative) mg/dL Range/Units 05/25/23 05/25/23 05/25/23 11:05 13:40 14:55 WBC (4.4-10.8) 10^3/uL 12.60 H RBC (4.36-5.78) 10^6/uL 4.49 Hgb (13.5-17.5) g/dL 12.6 L Hct (40.0-50.0) % 38.0 L MCV (80-95) fL 85 MCH (27.0-33.0) pg 28.1 MCHC (32.0-36.0) % 33.2 RDW (11.8-14.1) % 15.3 H Plt Count (130-400) 10^3/uL 437 H MPV (8.0-11.0) fL 10.1 Immature Gran % 0.3 Neutrophils % 76.0 Lymphocytes % 12.9 Monocytes % 8.3 Eosinophils % 1.7 Basophils % 0.8 Nucleated RBC % (0.0-0.3) % 0.0 Absolute Neutrophils (1.2-6.7) 10^3/uL 9.58 H Absolute Lymphocytes (1.2-3.4) 10^3/uL 1.63 Absolute Monocytes (0.1-0.8) 10^3/uL 1.05 H Absolute Eosinophils (0.0-0.7) 10^3/uL 0.21 Absolute Basophils (0.0-0.2) 10^3/uL 0.10 VBG Lactate (0.6-1.4) mmol/L 1.7 H Sodium (136-145) mmol/L Potassium (3.5-5.1) mmol/L Chloride (98-107) mmol/L Carbon Dioxide (21.0-32.0) mmol/L Anion Gap (3-11) mmol/L BUN (7-18) mg/dL Creatinine (0.70-1.30) mg/dL Est GFR (CKD-EPI 2020) (mL/min/1.73m2) Glucose (74-106) mg/dL Calcium (8.5-10.1) mg/dL Total Bilirubin (0.2-1.0) mg/dL AST (15-37) U/L ALT (16-63) U/L Alkaline Phosphatase (46-116) U/L Total Protein (6.4-8.2) g/dL Albumin (3.4-5.0) g/dL Lipase Urine Color (Yellow) Yellow Urine Clarity (Clear) Sl Cloudy Urine pH (5-8) 5.0 Ur Specific Bradford (1.005-1.025) 1.010 Urine Protein (Negative) mg/dL Negative Urine Ketones (Negative) mg/dL Negative Urine Blood (Negative) Negative Urine Nitrite (Negative) Positive H Urine Bilirubin (Negative) Negative Urine Urobilinogen (Up to 0.2) mg/dL 0.2 Ur Leukocyte Esterase (Negative) Moderate H Urine RBC (0-2) HPF 0-2 Urine WBC (0-5) HPF >50 H Ur Epithelial Cells (Negative) HPF Few Urine Crystals (Negative) HPF Negative Urine Bacteria (Negative) HPF Moderate Urine Casts (Negative) LPF Negative Urine Mucus (Negative) Trace Ur Culture Indicated? Yes Urine Glucose (Negative) mg/dL Negative HPI General Mode of arrival: ambulatory . Date/Time Provider Initiated Documentation: 05/25/23 10:44 . Limitations to Documentation: no limitations . Information obtained by: patient . 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 Patient notes pain in his left upper quadrant. Pain has been present for the past 2 to 3 weeks. Described as tightness. He has associated loose stool over the past few days. He has associated nausea and frequent burping. Related Data Home Medications Medication Instructions Recorded Confirmed acetaminophen 325 mg tablet 650 mg PO Q6H PRN 03/27/19 05/25/23 atorvastatin 10 mg tablet 10 mg PO HS 03/27/19 05/25/23 metformin 500 mg tablet 1,000 mg PO HS 03/27/19 05/25/23 metoprolol succinate 25 mg 25 mg PO DAILY 03/27/19 05/25/23 tablet,extended release 24 hr omeprazole 40 mg capsule,delayed 40 mg PO TID 03/27/19 05/25/23 release insulin glargine 100 unit/mL (3 20 unit subcut HS 04/09/19 05/25/23 mL) subcutaneous pen (Luz Young U-100 Insulin) tamsulosin 0.4 mg capsule 0.4 mg PO DAILY #30 caps 04/09/22 05/25/23 apixaban 5 mg tablet (Eliquis) 5 mg PO DAILY 05/25/23 05/25/23 cefuroxime axetil 500 mg tablet 500 mg PO BID #18 tabs 05/25/23 fluticasone fur. 100 mcg-umeclid 100 ea inhalation DAILY 05/25/23 05/25/23 62.5 mcg-vilant 25 mcg inhalat.powder (Trelegy Ellipta) montelukast 10 mg tablet 10 mg PO DAILY 05/25/23 05/25/23 semaglutide 0.25 mg or 0.5 mg (2 2.5 mg subcut QWEEK 05/25/23 05/25/23 mg/3 mL) subcutaneous pen injector (eSee/[employer]cue Corporationempic) Previous Rx's Medication Instructions Recorded tamsulosin 0.4 mg capsule 0.4 mg PO DAILY #30 caps 04/09/22 cefuroxime axetil 500 mg tablet 500 mg PO BID #18 tabs 05/25/23 Allergies Allergy/AdvReac Type Severity Reaction Status Date / Time indomethacin [From Indocin] Allergy Unverified 03/02/21 06:28 levofloxacin Allergy Unverified 03/02/21 06:28 metronidazole [From Flagyl] Allergy Unverified 03/02/21 06:28 General Stated Complaint: Nausea/Vomit/Diar ORA: 3 Review of Systems All systems reviewed & are unremarkable except as noted in HPI and below Constitutional Constitutional: Denies fever(s) Gastrointestinal Gastrointestinal: Reports as per HPI and Denies hematemesis Genitourinary Comments: [place]-tinged urine recently that cleared PFSH All Active Problems (Updated 05/25/23 @ 15:26 by Pierce Vela MD) Abdominal pain (Acute) Acute UTI (Acute) Partial small bowel obstruction (Acute) GI bleed (Chronic) On Coumadin for atrial fibrillation (Acute) Atrial fibrillation with controlled ventricular rate (Acute) Localized enlarged lymph nodes (Acute) left illiac 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 Treated at [facility] Leukocytosis (leucocytosis) (Acute) Pneumonia (Acute) Small bowel obstruction (Acute) Hematemesis (Acute) Hypomagnesemia (Acute) Social History Smoking/Tobacco Use Status: Former Tobacco Use Smoking risk assessment performed?: Yes Alcohol Intake: current Alcohol Intake frequency: a few times a month Drug use: Never Housing: house Do you feel safe at home: Yes Do you feel safe in your relationship?: Yes Exam HENMT Mouth: moist mucous membranes Eyes Conjunctivae: normal conjunctivae Sclera: normal sclerae Neck Neck: trachea midline and supple Resp Auscultation: clear to auscultation bilaterally, no rales, no rhonchi and no wheezes Cardio Rate: regular rate and not tachycardic Rhythm: regular rhythm GI Inspection: scar Palpation: soft, not firm, no guarding, no masses, not rigid and tender in the LUQ Percussion: tympanic to percussion Skin General skin exam: no rashes or lesions noted Neuro General: patient alert, patient awake and tone normal Extrem General: no edema Psych Appearance: grossly normal Mental Status: mental status grossly normal Course Vital Signs Vital signs: Vital Signs Pulse Oximetry 97 05/25/23 10:33 Temperature 37.4 C 05/25/23 10:34 Temperature Source Temporal Artery Scan 05/25/23 10:34 Pulse 92 H 05/25/23 10:46 Respiratory Rate 18 05/25/23 10:34 Respiratory Effort Normal 05/25/23 10:37 Blood Pressure 131/81 05/25/23 10:46 Blood Pressure Mean 99 05/25/23 10:46 Blood Pressure Position Sitting 05/25/23 10:34 Pulse Oximetry 96 05/25/23 10:46 Oxygen Delivery Method Room Air 05/25/23 10:34 Oxygen Flow Rate 0 05/25/23 10:34 Lab/Test Results Lab/Test Results: Laboratory Tests Range/Units 05/25/23 05/25/23 05/25/23 11:05 11:05 11:05 WBC (4.4-10.8) 10^3/uL 12.60 H RBC (4.36-5.78) 10^6/uL 4.49 Hgb (13.5-17.5) g/dL 12.6 L Hct (40.0-50.0) % 38.0 L MCV (80-95) fL 85 MCH (27.0-33.0) pg 28.1 MCHC (32.0-36.0) % 33.2 RDW (11.8-14.1) % 15.3 H Plt Count (130-400) 10^3/uL 437 H MPV (8.0-11.0) fL 10.1 Immature Gran % 0.3 Neutrophils % 76.0 Lymphocytes % 12.9 Monocytes % 8.3 Eosinophils % 1.7 Basophils % 0.8 Nucleated RBC % (0.0-0.3) % 0.0 Absolute Neutrophils (1.2-6.7) 10^3/uL 9.58 H Absolute Lymphocytes (1.2-3.4) 10^3/uL 1.63 Absolute Monocytes (0.1-0.8) 10^3/uL 1.05 H Absolute Eosinophils (0.0-0.7) 10^3/uL 0.21 Absolute Basophils (0.0-0.2) 10^3/uL 0.10 VBG Lactate (0.6-1.4) mmol/L 2.0 H Lipase Cancelled PAWSS Have you Been Recently Intoxicated or Drunk Within the Last 30 days?: No Have you Ever Experienced Previous Episodes of Alcohol Withdrawal?: No Have you ever Experienced Withdrawal Seizures?: No Have you ever Experienced Delirium Tremens(DT)s?: No Have you ever undergone Alcohol Rehabilitation Treatment (i.e, inpt ot outpatient treatment programs)?: No Have you ever Experienced Blackouts?: No Have you ever Combined Alcohol with other Downers within the last 90 days?: No Have you ever Combined Alcohol with any other Substance of Abuse during the last 90 days?: No Positive Blood Alcohol level on Presentation? [PCS.BAL]: No Evidence of Increased Autonomic Activity (i.e. HR>120, tremor, sweating, agitation, nausea)?: No Result: 0
[2023-05-25 11:33] LABS: ALT 19 U/L (16-63); AST 13 U/L (15-37); Alkaline Phosphatase 167 U/L (46-116); Anion Gap 11.6 mmol/L (3-11); BUN 21 mg/dL (7-18); Bilirubin, Total 0.5 mg/dL (0.2-1.0); CO2 23.4 mmol/L (21.0-32.0); CREATININE 1.1 mg/dL (0.70-1.30); Calcium 10.7 mg/dL (8.5-10.1); Chloride 102 mmol/L (98-107); Estimated GFR 68.29 (mL/min/1.73m2); Glucose 233 mg/dL (74-106); Lipase 33 U/L (16-77); Potassium 4.4 mmol/L (3.5-5.1); Sodium 137 mmol/L (136-145); Total Protein 7.5 g/dL (6.4-8.2)
[2023-05-25] MEDS: Normal Saline Flush 10 ML SYR IVP (12:34)
[2023-05-25] MEDS: Normal Saline - Diluent 50 ML VIAL IJ (12:36)
[2023-05-25] MEDS: Omnipaque 350 MG/ML 100 ML BTL IJ (12:36)
[2023-05-25 13:52] LABS: Bilirubin Negative (Negative); Blood Negative (Negative); Clarity Sl Cloudy (Clear); Glucose Negative (Negative); Ketones Negative (Negative); Leukocyte Esterase Moderate (Negative); Nitrite Positive (Negative); Urobilinogen 0.2 mg/dL (Up to 0.2)
[2023-05-25 14:00] LABS: Bacteria Moderate HPF (Negative); Casts Negative LPF (Negative); Crystals Negative HPF (Negative); Epithelial Cells Few HPF (Negative); Mucus Trace (Negative); RBC 0-2 HPF (0-2); WBC >50 HPF (0-5)
[2023-05-25] MEDS: Lactated Ringers 500 ML IV (14:00)
[2023-05-25 14:01] LABS: C & S Indicated? Yes
[2023-05-25] MEDS: cefTRIAXone 1 GM/50 ML BAG IVPB (14:46)
[2023-05-25 15:08] LABS: Lactate 1.7 mmol/L (0.6-1.4)
--- NOTE | 2023-05-25 15:28 | NUR.NOTE ---
Faxed PCP referral for abd pain/UTI, concern for SBO on Monday Nursing Note:
== END 2023-05-25 16:10 | disposition home or self-care (01) ==
PROVIDERS: Emergency Provider Student in an Organized Health Care Education/Training Program; PCP Nurse Practitioner Family
DX: R10.30 Lower abdominal pain, unspecified (principal); R19.7 Diarrhea, unspecified; Z87.19 Personal history of other diseases of the digestive system; N39.0 Urinary tract infection, site not specified; K56.600 Partial intestinal obstruction, unspecified as to cause
CPT/HCPCS: 36415; 80053; 83690; 87077; 99285; 74177; 81003; 81015; 83605; 85025; 87086; 87186; 99284; J0696; J3490

== ENCOUNTER 2023-05-30 14:43 | Emergency (ER) | payer MEDICARE, BC, SELFPAY ==
[2023-05-30] VITALS (20 sets, daily range): BP systolic 152–169; BP diastolic 58–80; PULSE 60–72; RESP 18; TEMP 36.7; O2SAT 97–100
--- NOTE | 2023-05-30 15:07 | ED.GENADUL_ITS ---
Discharge Plan Disposition Patient Disposition: Home Discharge Details Clinical Impression: Effusion of knee joint right, Atrial fibrillation with controlled ventricular rate, Acute UTI, Acute pain of right knee Primary Care Provider: ALEJANDRA SAMANO ED Provider: Yadi Peguero Home Meds and New Rx's Prescriptions: No Action tamsulosin 0.4 mg capsule 0.4 mg PO DAILY Qty: 30 2RF metformin 500 mg Tablet 1,000 mg PO HS acetaminophen 325 mg Tablet 650 mg PO Q6H PRN atorvastatin 10 mg Tablet 10 mg PO HS omeprazole 40 mg Capsule,Delayed Release(Dr/Ec) 40 mg PO TID metoprolol succinate 25 mg Tablet Extended Release 24 Hr 25 mg PO DAILY insulin glargine [Basaglar KwikPen U-100 Insulin] 100 unit/mL (3 mL) Insulin Pen 20 unit SUBCUT HS montelukast 10 mg tablet 10 mg PO DAILY Eliquis 5 mg tablet 5 mg PO DAILY Trelegy Ellipta 100-62.5-25 mcg blister with device 100 ea INHALATION DAILY Ozempic 0.25 mg or 0.5 mg (2 mg/3 mL) pen injector 2.5 mg SUBCUT QWEEK Patient Comments: 0.5 MG SUBCUTANEOUS ONCE A WEEK 84 DAYS cefuroxime axetil 500 mg tablet 500 mg PO BID Qty: 18 0RF Discharge Instructions Instructions: A-fib (Atrial Fibrillation) (ED), Urinary Tract Infection in Men (ED), Swollen Knee Joint (ED), Knee Pain (ED), Joint Aspiration (DC) Additional Instructions: 1. Continue the antibiotics previously prescribed for your urinary tract infection. 2. Dr. Ames will call you with the results of the arthrocentesis. You have also had a culture drawn which will be resulted in 48 hours and a test for tickborne illness which may take up to a week to result. 3. Take acetaminophen and topical Voltaren as needed for pain. Return to the emergency department for any new or worrisome symptoms such as increasing pain, fever, chills or any concerns. Discharge Data Discharge Date/Time-TO BE ENTERED AT DEPARTURE: 05/30/23 17:41 Discharge Physician: Yadi Peguero Medical Decision Making This is a 78-year-old male who who is status post right total knee replacement in September of this year in [place] who presents with 6 days of gradually increasing right knee pain and swelling. He denies any systemic symptoms and does have a history of gout. He is an insulin-dependent diabetic and is on Eliquis for atrial fibrillation. There is concern for a septic joint. Other considerations are gout or pseudogout. He could also have a meniscal or ligamentous injury from physical therapy although he does not recall any specific traumatic event. Other considerations are Lyme disease or possibly a rheumatologic cause related to his recent UTI and antibiotics. Differential Diagnosis Differential Diagnosis: Septic arthritis, gout, pseudogout, Lyme disease, musculoskeletal pain Medical Records Medical records reviewed: Yes I reviewed the patient's medical records. Imaging Data Radiologic Study: Imaging: X-Ray (RIGHT KNEE) Radiologist's impression: IMPRESSION: Tissue swelling and small joint effusion.? No acute bony abnormality. Lab Data Lab results reviewed: Yes I reviewed the patient's lab results. Lab results narrative: As above HPI General Date/Time Provider Initiated Documentation: 05/30/23 15:07 . Limitations to Documentation: other (The patient has mild memory deficits. He cannot recall that he had had a previous history of gout.) . Information obtained by: patient, family, RN notes reviewed and old records reviewed . History of Present Illness described as moderate, with intensity rated at 5. HPI Narrative: Time seen was 1508 in bed 7. The patient is a 78-year-old male, with a history of gout, who spends the belle in [place] and the pe[place] here in [place]. He presents today with 6 days of right knee pain which has been gradually increasing in severity. He had a total right knee [place] Jacobo [place] [facility] [place] 20[place]. Dr. Yap is currently on vacation in [facility]. His assistance has been in contact with the patient's . The patient he is complaining of constant pain in the right knee which is currently 5 out of 10 in severity and aggravated by movement and ambulation. The patient was recently seen in the emergency department for urinary tract infection on May 25, and was treated with cephalexin which he continues to take currently. He has been doing physical therapy in [facility]. He has a history of renal insufficiency and has been told he cannot take nonsteroidal anti-inflammatories. He denies any fevers or chills. He is complaining of pain and swelling of the right knee. He has had gout in his elbow and hand in the past. He could not recall this but his is quite sure of this past medical history. The patient also has a history of atrial fibrillation and is on Eliquis. He is also an insulin-dependent diabetic. The patient recently had Mohs surgery of the right forehead. Related Data Home Medications Medication Instructions Recorded Confirmed acetaminophen 325 mg tablet 650 mg PO Q6H PRN 03/27/19 05/25/23 atorvastatin 10 mg tablet 10 mg PO HS 03/27/19 05/25/23 metformin 500 mg tablet 1,000 mg PO HS 03/27/19 05/25/23 metoprolol succinate 25 mg 25 mg PO DAILY 03/27/19 05/25/23 tablet,extended release 24 hr omeprazole 40 mg capsule,delayed 40 mg PO TID 03/27/19 05/25/23 release insulin glargine 100 unit/mL (3 20 unit subcut HS 04/09/19 05/25/23 mL) subcutaneous pen (AURSOSfidencio CiscoDoron U-100 Insulin) tamsulosin 0.4 mg capsule 0.4 mg PO DAILY #30 caps 04/09/22 05/25/23 apixaban 5 mg tablet (Eliquis) 5 mg PO DAILY 05/25/23 05/25/23 cefuroxime axetil 500 mg tablet 500 mg PO BID #18 tabs 05/25/23 fluticasone fur. 100 mcg-umeclid 100 ea inhalation DAILY 05/25/23 05/25/23 62.5 mcg-vilant 25 mcg inhalat.powder (Trelegy Ellipta) montelukast 10 mg tablet 10 mg PO DAILY 05/25/23 05/25/23 semaglutide 0.25 mg or 0.5 mg (2 2.5 mg subcut QWEEK 05/25/23 05/25/23 mg/3 mL) subcutaneous pen injector (urturnempic) Previous Rx's Medication Instructions Recorded tamsulosin 0.4 mg capsule 0.4 mg PO DAILY #30 caps 04/09/22 cefuroxime axetil 500 mg tablet 500 mg PO BID #18 tabs 05/25/23 Allergies Allergy/AdvReac Type Severity Reaction Status Date / Time indomethacin [From Indocin] Allergy Unverified 06/15/21 06:28 levofloxacin Allergy Unverified 03/02/21 06:28 metronidazole [From Flagyl] Allergy Unverified 03/02/21 06:28 General Stated Complaint: Orthopedic ORA: 3 Review of Systems Narrative: see hpi All systems reviewed & are unremarkable except as noted in HPI and below Constitutional Constitutional: Denies chills and Denies fever(s) Comments: No recent tick bites Eyes Eyes: Reports as per HPI ENT Comments: No URI symptoms Cardiovascular Cardiovascular: Denies chest pain and Denies dyspnea Comments: History of atrial fibrillation on Eliquis Respiratory Respiratory: Denies dyspnea Gastrointestinal Gastrointestinal: Reports as per HPI Genitourinary Genitourinary: Reports as per HPI Comments: Currently on antibiotics (cephalexin) for a urinary tract infection Musculoskeletal Musculoskeletal: Reports as per HPI, Reports abnormal gait, Reports arthralgias, Reports joint swelling, Reports limited range of motion and Denies tingling Integumentary/Breasts Skin/Breast: Reports system reviewed and no additional complaints, except as documented Neurologic Neurologic: Reports as per HPI, Reports abnormal gait and Denies tingling Endocrine Comments: The patient does have a history of insulin-dependent diabetes Hematologic/Lymphatic Comments: On Eliquis Allergic/Immunologic Comments: Allergies per nursing note PFSH All Active Problems (Updated 05/30/23 @ 17:31 by Yadi Peguero MD) Abdominal pain (Acute) Acute UTI (Acute) Partial small bowel obstruction (Acute) Effusion of knee joint right (Acute) Acute pain of right knee (Acute) GI bleed (Chronic) On Coumadin for atrial fibrillation (Acute) Atrial fibrillation with controlled ventricular rate (Acute) Localized enlarged lymph nodes (Acute) left illiac 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 He is mildly hypertensive. He is not tachycardic tachypneic or febrile. Room air O2 sat is normal at 98%. Const General: cooperative, healthy appearing, comfortable, no acute distress, well developed, well groomed and well hydrated Nutritional Appearance: average body habitus and well nourished Orientation: alert, awake and oriented x3 Limitations: other limitations (Some mild memory deficits. The patient did not remember he had gout.) HENMT Head: normocephalic and other (There is a bandage over the right forehead which I did not remove.) Ears: hearing grossly normal bilaterally and external ears normal General nose exam: external nose normal, nares normal and no nasal discharge Face and sinus: normal facial exam, sinuses nontender and face symmetric Mouth: oral mucosae normal, lip normal, tongue normal, oropharynx normal, moist mucous membranes and other (Normal phonation. The patient is handling secretions.) Throat: posterior oropharynx normal and uvula midline Eyes General: appearance normal, both eyes and all related structures Eyelids: eyelids normal Conjunctivae: conjunctivae normal Sclera: sclerae normal Cornea: corneas normal Pupils: PERRL EOM: EOM intact bilaterally and No nystagmus Neck Neck: normal visual inspection, full ROM, no lymphadenopathy, no meningeal signs, trachea midline and supple Lymphatic: no lymphadenopathy noted Resp Effort & Inspection: normal respiratory effort, able to speak in complete sentences, no audible wheezes, no nasal flaring, no respiratory distress, no retractions, no stridor, not tachypneic, no tracheal deviation, no use of accessory muscles, No prolonged expiratory phase and other (Normal inspiratory to expiratory ratio.) Auscultation: clear to auscultation bilaterally, no rales, no rhonchi, no wheezes and no rubs Tactile Fremitus: tactile fremitus absent Cardio Jugular venous pressure: no JVD Palpation: normal PMI Rate: regular rate Rhythm: abnormal rhythm irregularly irregular Heart Sounds: S1 normal, S2 normal, no gallops, no murmurs and no rubs GI Inspection: normal to inspection and non-distended Palpation: soft, no hepatosplenomegaly, no guarding and nontender Percussion: normal to percussion Auscultation: normal bowel sounds Back/Spine/Pelvis Back: No back tenderness Cervical Spine: normal cervical lordosis, cervical ROM normal, No cervical muscular tenderness, No pain with cervical ROM, No cervical spinal tenderness and No step off deformity Thoracic/Lumbar Spine: thoracic and lumbar spine normal to inspection, No thoracic spinal tenderness and No lumbar spinal tenderness Skin General skin exam: no rashes or lesions noted, turgor normal, no petechiae, no purpura and other (Skin is normal for ethnicity.) Lesions: no lesions Rashes: no rashes Trauma: no lacerations or abrasions Other: His skin is warm and dry normal for ethnicity. There is no erythema or evidence of cellulitis over the right knee. No cyanosis or clubbing Neuro General: patient alert, patient awake, patient oriented x3, moves all extremities, no meningeal signs, no focal motor deficits and CN's II-XI intact bilaterally Cranial Nerves: CN's II-XI intact bilaterally, PERRL, accommodation normal, EOM intact bilaterally, no nystagmus, facial strength normal, tongue midline, hearing normal and no nystagmus Cognition: normal cognition Speech: speech normal Motor: muscle tone normal throughout and strength 5/5 throughout Sensory Exam: no sensory deficits noted Extrem General: capillary refill normal, no clubbing, cyanosis or edema and no calf tenderness Right upper extremity: normal to inspection and full ROM Left upper extremity: normal to inspection and full ROM Right lower extremity: knee Details: swelling, abnormal ROM (That patient can extend almost 180 degrees at the right knee. He can flex to 90 degrees. There is no joint instability. There does appear to be an effusion. There is no overlying erythema or warmth) and other (He is neurovascularly intact distal to the right knee); ROM abnormal Left lower extremity: normal to inspection Other: The patient has a well-healed surgical scar over the right knee. The right hip and ankle are nontender with full range of motion. The patient is unable to fully extend the right knee (his tells me this has been since his total knee replacement), please see above. He was able to flex to 90 degrees. There does appear to be an effusion. There is not significant warmth. He is neurovascularly intact distally Psych Appearance: grossly normal Affect: normal affect Attitude: cooperative Thought Process: normal Thought Content: normal Insight: insight good Judgment: judgment good Other: The patient appears to have capacity make medical decisions. Course Reevaluation(s) Time: 16:09 Reevaluation: The patient's just spoke with the patient's orthopaedist from [facility], who is currently in [facility]. He recommended a plain film to rule out fx and he requested that we do tap his knee to rule out infection. He also recommended that the patient be admitted until cultures are resulted. I told her it would be unlikely that he would be admitted unless he has evidence of a septic joint. Time: 17:26 Reevaluation #2: Dr. Ames has performed arthrocentesis of the right knee joint. We have reviewed the pain patient's plain films. The synovial fluid was tyrone and clear. Dr. Ames suggested that the patient be discharged home and continue the antibiotic he is taking for his urinary tract infection. He will call the patient with the results. I have discussed the follow-up and plan with the patient and his who voiced understanding agreement. Consultations Consultation #1: Dr. Ames was paged at [id number]. Time: 16:36 Consultation #2: Dr. Ames has come down to see the patient and has offered to perform the arthrocentesis the patient's knee. Vital Signs Vital signs: Vital Signs Temperature 36.7 C 05/30/23 14:50 Pulse 72 05/30/23 14:50 Respiratory Rate 18 05/30/23 14:50 Blood Pressure 152/75 H 05/30/23 14:50 Pulse Oximetry 98 05/30/23 14:50 Temperature 36.7 C 05/30/23 14:50 Temperature Source Temporal Artery Scan 05/30/23 14:50 Pulse 72 05/30/23 14:50 Respiratory Rate 18 05/30/23 14:50 Blood Pressure 152/75 H 05/30/23 14:50 Blood Pressure Position Sitting 05/30/23 14:50 Pulse Oximetry 98 05/30/23 14:50 Oxygen Delivery Method Room Air 05/30/23 14:50 Oxygen Flow Rate 0 05/30/23 14:50 Lab/Test Results Lab/Test Results: Mild leukocytosis. Mild anemia. Mild thrombocytosis, left shift. Elevated ESR. We are adding a tick panel. Elevated CRP. Mild hypoalbuminemia
[2023-05-30] MEDS: ACETAMINOPHEN 1,000 MG/100 ML BTL 400 MG IVPB (15:30)
[2023-05-30] MEDS: Normal Saline 1,000 ML 100 ML IV (15:30)
[2023-05-30 15:46] LABS: Abs Immature Grans 0.03 10^3/uL (0.0-0.06); Absolute Basophil Count 0.11 10^3/uL (0.0-0.2); Absolute Eosinophil Count 0.22 10^3/uL (0.0-0.7); Absolute Lymphocyte Count 2.35 10^3/uL (1.2-3.4); Absolute Monocyte Count 1.01 10^3/uL (0.1-0.8); Basophils % 0.9; Eosinophils % 1.8; HCT 36.4 % (40.0-50.0); HGB 11.9 g/dL (13.5-17.5); Immature Grans % 0.2; Lymphocytes % 19.5; MCH 27.5 pg (27.0-33.0); MCHC 32.7 % (32.0-36.0); MCV 84 fL (80-95); MPV 9.9 fL (8.0-11.0); Monocytes % 8.4; Neutrophils % 69.2; Platelet Count 431 10^3/uL (130-400); RBC 4.32 10^6/uL (4.36-5.78); RDW-SD 46.2 fL; WBC 12.03 10^3/uL (4.4-10.8)
[2023-05-30 15:49] LABS: ESR 40 mm/hr (0-20)
[2023-05-30 15:51] LABS: Absolute Neutrophil Count 8.32 10^3/uL (1.2-6.7)
[2023-05-30 15:54] LABS: ALT 18 U/L (16-63); AST 10 U/L (15-37); Albumin 2.9 g/dL (3.4-5.0); Alkaline Phosphatase 152 U/L (46-116); Anion Gap 10.8 mmol/L (3-11); BUN 13 mg/dL (7-18); Bilirubin, Total 0.4 mg/dL (0.2-1.0); C-Reactive Protein 0.67 mg/dL (0.0-0.3); CO2 23.2 mmol/L (21.0-32.0); Calcium 9.2 mg/dL (8.5-10.1); Chloride 105 mmol/L (98-107); Estimated GFR 76.56 (mL/min/1.73m2); Glucose 142 mg/dL (74-106); Potassium 3.9 mmol/L (3.5-5.1); Sodium 139 mmol/L (136-145); Total Protein 7.4 g/dL (6.4-8.2)
--- NOTE | 2023-05-30 16:15 | DI.RAD_ITS ---
Exam(s) XR KNEE RT 3V AP,LAT,STEPHY EXAM: XR KNEE RT 3V AP,LAT,STEPHY CLINICAL HISTORY: pain, effusion, h/o gout. TECHNIQUE: 2D digital imaging was performed. Three views. COMPARISON: No exams were available for comparison FINDINGS: BONES: A total knee prosthesis is seen. There are no abnormal surrounding bony lucencies. No acute fracture is present. No bony destructive lesion is seen. JOINTS: The knee is normally aligned. A joint effusion is seen. SOFT TISSUE: Anterior soft tissue swelling. IMPRESSION: Tissue swelling and small joint effusion. No acute bony abnormality. DATA REPOSITORY: RADIATION DOSE DELIVERED:
[2023-05-30 17:32] LABS: Lab Add On Test DONE
[2023-05-30 19:31] LABS: Clarity Cloudy; Nucleated Cells 371 uL (0); Polynuclear Cells 7 %
[2023-05-30 19:32] LABS: Mononuclear Cells 92 %; Other Cells 1 %
--- NOTE | 2023-05-31 10:09 | W.ORTHOCONSU ---
Date of service: 05/30/23 Time of Service: 17:05 History of Present Illness History of Present Illness Chief Complaint: Right knee pain Narrative: Geo is a 78-year-old male who presents today for worsening right knee pain. This seemed to start about 6 to 7 days ago. He has been diligent with physical therapy trying to improve his range of motion after knee replacement performed in [place] in October of this year. He did report some difficulties initially including cellulitis. He had regular visits with physical therapy due to stiffness about the knee. He has had other medical issues although no significant exacerbations. He denies any particular trauma although they have been pushing him harder with physical therapy. He denies hearing any pop or giving way sensation about the knee. He did find that using some Voltaren gel helped out. He does find that ambulation is becoming more difficult over the past 1 to 2 days, even with the use of crutches. He denies any fevers or chills. He denies any skin changes. He denies any recent infections. No other skin wounds. Consult Reason Painful right knee replacement Assessment and Plan Assessment and plan (1) Painful total knee replacement, right: Status: Acute Assessment and plan: Geo is a 78-year-old who is status post right knee replacement. Unfortunately, he is having increasing pain about the right knee. There is obvious concern for infection, especially with his history of diabetes and a report of cellulitis postoperatively. However, he does not have all the hallmarks of this. He is able to tolerate passive motion without significant discomfort. He does not have significant swelling or erythema. An aspiration was performed which was fairly bland and the cell count came back at 371 cells which would be against the diagnosis of infection. It is very possible that as he is trying to work through some of this stiffness from arthrofibrosis that he tore some tissue on the inside of the knee, synovium, scar tissue, etc. This should get better with time. He is reluctant to use any anti-inflammatories given the single kidney and his diabetes. He is reluctant to use steroids due to his diabetes. I would at least start with Voltaren gel and consider oral anti-inflammatories sparingly. I will call to check up on him in the next few days. If he is not showing any signs of improvement then a CT scan would be the next option to evaluate this knee and a revisit in the office. 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 Treated at [facility] Leukocytosis (leucocytosis) (Acute) Pneumonia (Acute) Small bowel obstruction (Acute) Hematemesis (Acute) Hypomagnesemia (Acute) Social History Smoking/Tobacco Use Status: Former Tobacco Use Smoking risk assessment performed?: Yes Alcohol Intake: current Alcohol Intake frequency: a few times a month Drug use: Never Housing: house Do you feel safe at home: Yes Do you feel safe in your relationship?: Yes Exam Narrative Exam Narrative: Sitting up in the hospital stretcher. No acute distress. Alert orient x3. Evaluation of the right lower extremity shows grossly normal-appearing leg with a well-healed incision. There is a mild effusion. No erythema. There is some generalized pain to palpation, mostly around the patella and in the soft tissues adjacent to the patella. There is some pain with palpation about the joint line. No crepitus with passive range of motion. He tolerates range of motion arc from 20 to 80 degrees without any significant pain. I am able to flex him up to about 95 degrees although this causes pain anteriorly. Likewise if I attempt passive extension he has pain posteriorly and throughout the knee, limited to about 10 to 15 degrees. The knee appears stable to varus and valgus stress. He is able to demonstrate quad activation and there is no defect noted although it is weak and does cause pain. He has intact ankle dorsiflexion, ankle plantarflexion, eversion, inversion. Sensation intact to light touch over the deep and superficial peroneal nerve and tibial nerve. Results Last Vital Signs Temp 36.7 C 05/30/23 14:50 Pulse 62 05/30/23 16:31 Resp 18 05/30/23 14:50 BP 160/80 H 05/30/23 16:31 Pulse Ox 99 05/30/23 17:10 Labs 05/30/23 15:30 05/30/23 15:30 Labs: Laboratory Results - last 24 hr 05/30/23 05/30/23 05/30/23 15:30 15:30 15:30 WBC 12.03 H RBC 4.32 L Hgb 11.9 L Hct 36.4 L MCV 84 MCH 27.5 MCHC 32.7 RDW 15.0 H Plt Count 431 H MPV 9.9 Immature Gran % 0.2 Neutrophils % 69.2 Lymphocytes % 19.5 Monocytes % 8.4 Eosinophils % 1.8 Basophils % 0.9 Nucleated RBC % 0.0 Absolute Neutrophils 8.32 H Absolute Lymphocytes 2.35 Absolute Monocytes 1.01 H Absolute Eosinophils 0.22 Absolute Basophils 0.11 ESR 40 H Sodium 139 Potassium 3.9 Chloride 105 Carbon Dioxide 23.2 Anion Gap 10.8 BUN 13 Creatinine 1.0 Est GFR (CKD-EPI 2020) 76.56 Glucose 142 H Calcium 9.2 Total Bilirubin 0.4 AST 10 L ALT 18 Alkaline Phosphatase 152 H C-Reactive Protein 0.67 H Total Protein 7.4 Albumin 2.9 L Fluid Source Fluid Color Fluid Clarity Fluid WBC Fld Polynuclear WBCs % Fluid Mononuclear Cell Fluid Other Cells Add-On Test Request 05/30/23 05/30/23 15:30 16:50 WBC RBC Hgb Hct MCV MCH MCHC RDW Plt Count MPV Immature Gran % Neutrophils % Lymphocytes % Monocytes % Eosinophils % Basophils % Nucleated RBC % Absolute Neutrophils Absolute Lymphocytes Absolute Monocytes Absolute Eosinophils Absolute Basophils ESR Sodium Potassium Chloride Carbon Dioxide Anion Gap BUN Creatinine Est GFR (CKD-EPI 2020) Glucose Calcium Total Bilirubin AST ALT Alkaline Phosphatase C-Reactive Protein Total Protein Albumin Fluid Source R Knee Fluid Color Yellow Fluid Clarity Cloudy Fluid WBC 371 Fld Polynuclear WBCs % 7 Fluid Mononuclear Cell 92 Fluid Other Cells 1 Add-On Test Request DONE Imaging Imaging Studies: X-ray of the right knee was reviewed. This shows a well-placed prosthesis. Cemented prosthesis. No sign of loosening. No sign of fracture. Procedures Joint Aspiration/Injection Joint Asp./Inject. 1: Time out performed: Yes Side of body: right Joint aspirated: knee Ultrasound guidance: No Skin prep: Chlorhexidine Local anesthesia used: other (Ethyl chloride) Needle size used: 18G Fluid obtained: clear Total fluid obtained (ml): 6 Medication injected, if any: Lidocaine Amount of medication injected (ml): 10 Patient tolerated procedure: well Complications: none
[2023-06-01 10:51] LABS: Lyme Ab w Rflx to Lyme Confirm Negative (Negative)
[2023-06-02 15:16] LABS: Anaplasma phagocytophilum Negative (Negative); B. miyamotoi PCR Negative (Negative); Babesia divergens/MO-1 Negative (Negative); Babesia duncani Negative (Negative); Babesia microti Negative (Negative); Ehrlichia chaffeensis Negative (Negative); Ehrlichia ewingii/canis Negative (Negative); Ehrlichia muris eauclairensis Negative (Negative)
== END 2023-05-30 17:41 | disposition home or self-care (01) ==
PROVIDERS: Student in an Organized Health Care Education/Training Program; Emergency Provider Emergency Medicine Emergency Medical Services; PCP Nurse Practitioner Family
DX: M25.461 Effusion, right knee; N39.0 Urinary tract infection, site not specified; I48.91 Unspecified atrial fibrillation; E11.9 Type 2 diabetes mellitus without complications; Z79.01 Long term (current) use of anticoagulants; Z79.4 Long term (current) use of insulin; Z96.651 Presence of right artificial knee joint
CPT/HCPCS: 20610; 36415; 73562; 80053; 84153; 84403; 85652; 87040; 87798; 96365; 99283; 85025; 86140; 86618; 87070; 87205; 89051; J0131

== ENCOUNTER 2023-05-30 16:06 | Outpatient (CLI) | payer MEDICARE, BC, SELFPAY ==
[2023-06-01 17:11] LABS: PSA, Ultrasensitive 0.06 ng/mL (<= 6.5)
[2023-06-05 16:58] LABS: Testosterone, Total 58 ng/dL (240-950)
== END 2023-05-30 16:07 | disposition home or self-care (01) ==
LOC: LBO 16:07
PROVIDERS: PCP Nurse Practitioner Family
DX: C61 Malignant neoplasm of prostate (principal)
CPT/HCPCS: 36415; 84153; 84403

== ENCOUNTER → 2023-06-06 12:53 | Outpatient (CLI) | payer MEDICARE, BC, SELFPAY ==
--- NOTE | 2023-06-06 08:45 | DI.CT_ITS ---
Exam(s) CT LOWER EXTREMITY RT WO EXAM: CT LOWER EXTREMITY RT WO CLINICAL HISTORY: PAIN, ?LOOSENING, painful total knee replacement rt, acute pain, T84.84XA. TECHNIQUE: Imaging Protocol: Axial computed tomography images with coronal and sagittal reformatted images were created and reviewed. COMPARISON: CR XR KNEE RT 3V AP,LAT,STEPHY from 05/30/2023 FINDINGS: Bones: The patient has a right total knee replacement. No lucencies are seen in or about the orthop edic hardware. Bony alignment is satisfactory. No lytic or sclerotic lesions are identified. No de structive changes are seen. There is a small joint effusion. There is no acute fracture or dislocat ion. Soft Tissues: Atherosclerosis is present. IMPRESSION: Right total knee replacement. No suspicious lucencies are seen in or about the orthopedic hardware t o suggest loosening. RADIATION DOSE DELIVERED: 382.45mGy.cm Total DLP 382.45mGy.cm Total DLP DATA REPOSITORY: All CT scans at this facility are submitted to the National Radiology Data Registry (NRDR) Dose Index Registry (DIR) with the [employer] (A[employer]). RADIATION OPTIMIZATION: All CT scans at this facility use at least one of these dose optimization te chniques: automated exposure control; mA and/or kV adjustment per patient size (includes targeted exa ms where dose is matched to clinical indication); or iterative reconstruction.
== END ==
PROVIDERS: PCP Nurse Practitioner Family; Visit Provider Student in an Organized Health Care Education/Training Program
DX: M25.561 Pain in right knee (principal); T84.84XA Pain due to internal orthopedic prosthetic devices, implants and grafts, initial encounter; Z96.651 Presence of right artificial knee joint
CPT/HCPCS: 73700

== ENCOUNTER → 2023-06-09 09:31 | Outpatient (BNVA) | payer MEDICARE, BC, SELFPAY | PROVIDERS: PCP Nurse Practitioner Family; Referring Provider Nurse Practitioner Family; Visit Provider Student in an Organized Health Care Education/Training Program | DX: T84.84XA Pain due to internal orthopedic prosthetic devices, implants and grafts, initial encounter (principal); Z96.651 Presence of right artificial knee joint | CPT/HCPCS: 76882; 99213 ==

== ENCOUNTER 2024-03-19 03:11 | Outpatient (CLI) | payer MEDICARE, BC, SELFPAY ==
[2024-03-19 23:30] LABS: PSA, Diagnostic 0.1 ng/mL (<=6.5)
[2024-03-26 13:40] LABS: Testosterone, Total 74 ng/dL (240-950)
== END 2024-03-19 03:12 | disposition home or self-care (01) ==
PROVIDERS: PCP Nurse Practitioner Family; Visit Provider Registered Nurse Oncology
DX: C61 Malignant neoplasm of prostate (principal)
CPT/HCPCS: 36415; 84403; 84153

== ENCOUNTER 2024-04-07 11:45 | Emergency (ER) | payer MEDICARE, BC, SELFPAY ==
[2024-04-07] VITALS (33 sets, daily range): BP systolic 118–171; BP diastolic 50–75; PULSE 50–68; RESP 16; TEMP 36.4–36.6; O2SAT 95–100
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
--- NOTE | 2024-04-07 14:34 | ED.GENADUL_ITS ---
Discharge Plan Disposition Patient Disposition: Home Condition: Improving Discharge Details Chief Complaint: Abd Prob Clinical Impression: Abdominal pain Primary Care Provider: ALEJANDRA SAMANO ED Provider: Alcon Reardon Home Meds and New Rx's Prescriptions: No Action Myrbetriq 25 mg tablet extended release 24 hr 25 mg PO DAILY ascorbic acid (vitamin C) 500 mg tablet 500 mg PO DAILY cholecalciferol (vitamin D3) 25 mcg (1,000 unit) capsule 25 mcg PO DAILY tamsulosin 0.4 mg capsule 0.4 mg PO DAILY Qty: 30 2RF acetaminophen 325 mg Tablet 650 mg PO Q6H PRN atorvastatin 10 mg Tablet 10 mg PO HS metoprolol succinate 25 mg Tablet Extended Release 24 Hr 25 mg PO DAILY omeprazole 40 mg capsule,delayed release(DR/EC) 20 mg PO DAILY insulin glargine [Basaglar KwikPen U-100 Insulin] 100 unit/mL (3 mL) Insulin Pen 20 unit SUBCUT HS montelukast 10 mg tablet 10 mg PO DAILY Trelegy Ellipta 100-62.5-25 mcg blister with device 100 ea INHALATION DAILY Eliquis 5 mg tablet 5 mg PO BID Discharge Instructions Instructions: Abdominal Pain, Adult ED Additional Instructions: Please follow-up with your primary care physician and your janitorial cleaner. Please return to the emergency department for any worsening symptoms HPI General Date/Time Provider Initiated Documentation: 04/07/24 13:05 . 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 Patient had small bowel movement yesterday no nausea no vomiting Related Data Home Medications ?Medication ?Instructions ?Recorded ?Confirmed acetaminophen 325 mg tablet 650 mg PO Q6H PRN 03/27/19 04/07/24 atorvastatin 10 mg tablet 10 mg PO HS 03/27/19 04/07/24 metoprolol succinate 25 mg 25 mg PO DAILY 03/27/19 04/07/24 tablet,extended release 24 hr insulin glargine 100 unit/mL (3 20 unit subcut HS 04/09/19 04/07/24 mL) subcutaneous pen (Basaglar KwikPen U-100 Insulin) tamsulosin 0.4 mg capsule 0.4 mg PO DAILY #30 caps 04/09/22 04/07/24 fluticasone fur. 100 mcg-umeclid 100 ea inhalation DAILY 05/25/23 04/07/24 62.5 mcg-vilant 25 mcg inhalat.powder (Trelegy Ellipta) montelukast 10 mg tablet 10 mg PO DAILY 05/25/23 04/07/24 apixaban 5 mg tablet (Eliquis) 5 mg PO BID 06/09/23 04/07/24 ascorbic acid (vitamin C) 500 mg 500 mg PO DAILY 06/09/23 04/07/24 tablet cholecalciferol (vitamin D3) 25 25 mcg PO DAILY 06/09/23 04/07/24 mcg (1,000 unit) capsule mirabegron 25 mg tablet,extended 25 mg PO DAILY 06/09/23 04/07/24 release 24 hr (Myrbetriq) omeprazole 40 mg capsule,delayed 20 mg PO DAILY 06/09/23 04/07/24 release Previous Rx's ?Medication ?Instructions ?Recorded tamsulosin 0.4 mg capsule 0.4 mg PO DAILY #30 caps 04/09/22 Allergies Allergy/AdvReac Type Severity Reaction Status Date / Time indomethacin (From Indocin) Allergy Unknown Unverified 04/07/24 11:57 levofloxacin Allergy Unknown Unverified 04/07/24 11:57 metronidazole (From Flagyl) Allergy Unknown Unverified 04/07/24 11:57 General Stated Complaint: Abd Prob ORA: 3 Exam Narrative Exam Narrative: Alert oriented interactive Moist mucous membranes tolerating secretions Lungs clear bilaterally no wheezing rales or rhonchi Normal rate strong pulses warm well-perfused good perfusion Abdomen distended moderately tender without guarding or rebounding, somewhat tympanic Course Vital Signs Vital signs: Vital Signs Temperature 36.4 C 04/07/24 11:48 Pulse 68 04/07/24 11:48 Respiratory Rate 16 04/07/24 11:48 Blood Pressure 129/51 L 04/07/24 11:48 Pulse Oximetry 98 04/07/24 11:48 Temperature 36.4 C 04/07/24 11:48 Temperature Source Skin 04/07/24 11:48 Pulse 68 04/07/24 11:48 Respiratory Rate 16 04/07/24 11:48 Blood Pressure 129/51 L 04/07/24 11:48 Blood Pressure Position Sitting 04/07/24 11:48 Pulse Oximetry 98 04/07/24 11:48 Oxygen Delivery Method Room Air 04/07/24 11:48 Oxygen Flow Rate 0 04/07/24 11:48 Pain Level 8 04/07/24 11:48 Medical Decision Making 79-year-old male history of colon cancer status postresection, lung cancer recurrent with metastases to bone, multiple prior small bowel obstructions presents with abdominal pain distention, hemodynamically stable afebrile nontoxic however does appear uncomfortable, moderately distended abdomen that is slightly tympanic, no guarding or rebounding, small bowel movement yesterday, no active vomiting, consider early bowel obstruction versus ileus versus metastatic disease versus less likely colitis or enteritis lower suspicion for appendicitis or cholecystitis will obtain CT abdomen pelvis labs fluids antiemetics analgesia close reassessment 17: 18 patient resting comfortably no acute distress feeling much better after rest and fluids and medication. No evidence of high-grade bowel obstruction. Patient passing flatus abdomen much more soft on examination. Patient family comfortable going home will follow close with primary care physician and janitorial cleaner. 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 Treated at [facility] cancer [place] Leukocytosis (leucocytosis) (Acute) Pneumonia (Acute) Small bowel obstruction (Acute) Hematemesis (Acute) Hypomagnesemia (Acute) Social History Smoking/Tobacco Use Status: Former Tobacco Use Smoking risk assessment performed?: Yes Alcohol Intake: current Alcohol Intake frequency: a few times a month Drug use: Never Housing: house Current gender identity: male Do you feel safe at home: Yes Do you feel safe in your relationship?: Yes
[2024-04-07 14:47] LABS: Abs Immature Grans 0.03 10^3/uL (0.0-0.06); Absolute Eosinophil Count 0.24 10^3/uL (0.0-0.7); Absolute Lymphocyte Count 2.27 10^3/uL (1.2-3.4); Absolute Monocyte Count 1.17 10^3/uL (0.1-0.8); Absolute Neutrophil Count 7.83 10^3/uL (1.2-6.7); Basophils % 0.9 %; Eosinophils % 2.1 %; HCT 35.8 % (40.0-50.0); HGB 11.2 g/dL (13.5-17.5); Immature Grans % 0.3 %; Lymphocytes % 19.5 %; MCH 25.2 pg (27.0-33.0); MCHC 31.3 % (32.0-36.0); MCV 80 fL (80-95); MPV 10.3 fL (8.0-11.0); Neutrophils % 67.2 %; Platelet Count 439 10^3/uL (130-400); RBC 4.45 10^6/uL (4.36-5.78); RDW 17.1 % (11.8-14.1); RDW-SD 50.1 fL; WBC 11.65 10^3/uL (4.4-10.8)
[2024-04-07 15:02] LABS: ALT 14 U/L (16-63); AST 9 U/L (15-37); Albumin 3.3 g/dL (3.4-5.0); Alkaline Phosphatase 143 U/L (46-116); Anion Gap 8.7 mmol/L (3-11); BUN 30 mg/dL (7-18); Bilirubin, Total 0.37 mg/dL (0.2-1.0); CO2 26.3 mmol/L (21.0-32.0); CREATININE 1.2 mg/dL (0.70-1.30); Calcium 10.1 mg/dL (8.5-10.1); Chloride 106 mmol/L (98-107); Estimated GFR 61.13 (mL/min/1.73m2); Glucose 182 mg/dL (74-106); Lipase 47 U/L (16-77); Potassium 4.6 mmol/L (3.5-5.1); Sodium 141 mmol/L (136-145); Total Protein 7.8 g/dL (6.4-8.2)
[2024-04-07] MEDS: ACETAMINOPHEN 1,000 MG/100 ML BTL 400 MG IVPB (15:03)
[2024-04-07] MEDS: MORPHine 4 MG/ML SYR 2 MG IVP (15:04)
[2024-04-07] MEDS: Normal Saline 1,000 ML 1000 ML IV (15:04)
[2024-04-07] MEDS: Ondansetron 4 MG/2 ML VIAL IVP (15:04)
[2024-04-07] MEDS: Normal Saline - Diluent 50 ML VIAL IJ (15:13)
[2024-04-07] MEDS: Omnipaque 350 MG/ML 100 ML BTL IJ (15:13)
== END 2024-04-07 18:06 | disposition home or self-care (01) ==
PROVIDERS: Emergency Provider Emergency Medicine; PCP Nurse Practitioner Family
DX: R10.84 Generalized abdominal pain (principal); C34.92 Malignant neoplasm of unspecified part of left bronchus or lung; C79.51 Secondary malignant neoplasm of bone; I48.91 Unspecified atrial fibrillation; Z85.038 Personal history of other malignant neoplasm of large intestine; Z79.01 Long term (current) use of anticoagulants; Z87.891 Personal history of nicotine dependence
CPT/HCPCS: 80053; 83690; 96365; 96366; 96375; 99285; 74177; 85025; J0131; J2270; J2405; J3490